=== PATIENT | female | born 1970 | race Hispanic/Latino ===

== ENCOUNTER 2017-09-18 10:32 | Emergency (ER) | payer SELFPAY ==
[2017-09-18 13:19] LABS: Absolute Lymphocytes (CBC) 2.6 K/uL (0.7-4.9); Absolute Monocytes 0.5 K/uL (0.1-1.3); Basophils % 1.1 % (0-1.3); Eosinophils % 1.3 % (0-4.4); Hematocrit 28.6 % (36.0-45.0); Lymphocytes % 27.9 % (15.3-44.8); MCH 18.1 pg (27.0-35.0); MCV 61.9 fL (80-100); MPV 8.8 fL (7.6-11.3); RBC Red Blood Cell Count 4.62 M/uL (3.86-4.86)
[2017-09-18 13:25] LABS: Bicarbonate 23 mEq/L (21-31); Glucose Level 92 mg/dL (65-120); Lipase 26 U/L (22-51); Potassium 3.3 mEq/L (3.6-5.0); Sodium Level 137 mEq/L (135-145)
[2017-09-18 13:31] LABS: ALT/SGPT 15 IU/L (10-60); AST/SGOT 23 IU/L (10-42); Albumin 4.3 g/dL (3.2-5.5); Alkaline Phosphatase 69 IU/L (42-121); Amylase Level 67 U/L (28-100); BUN Blood Urea Nitrogen 10 mg/dL (6-20); Bilirubin Direct 0.2 mg/dL (0-0.2); Bilirubin Total 1.1 mg/dL (0.3-1.2); Protein, Total 8.2 g/dL (6.0-8.3)
[2017-09-18 13:38] LABS: Urine Blood 3+ (NEG); Urine Glucose NEGATIVE (NEG); Urine Protein NEGATIVE (NEG); Urine pH 5.5 (5.0-7.0)
[2017-09-18] MEDS ORDERED: NA CHLORIDE 0.9% 1,000 ML ONE (14:09)
[2017-09-18 14:11] LABS: Urine Bacteria <20 /HPF (<20); Urine Culture Reflex Order NOT NEEDED; Urine RBC 20-50 /HPF (NONE SEEN)
[2017-09-18] MEDS ORDERED: POTASSIUM 25 MEQ EFFERV TAB ONE (14:11)
--- NOTE | 2017-09-18 14:32 | RAD REPORT ---
EXAM DESCRIPTION: CT - Abdomen Pelvis W Contrast - 09/18/2017 2:14 pm CLINICAL HISTORY: Abdominal pain. Rectal bleeding since yesterday COMPARISON: June 2016 TECHNIQUE: Computed axial tomography of the abdomen and pelvis was obtained. 100 cc Isovue-300 is ad ministered intravenously. Oral contrast was given. All CT scans are performed using dose optimization technique as appropriate and may include automated exposure control or mA/KV adjustment according to patient size. FINDINGS: The liver, spleen, pancreas, adrenals and kidneys appear unremarkable. There is no evidence of diverticulitis The gallbladder has been removed. An umbilical hernia contains fat. The neck measures 37 millimeters IMPRESSION: No acute abnormality is displayed
[2017-09-18] MEDS ORDERED: ACETAMINOPHEN 325 MG TABLET ONE (14:37)
--- NOTE | 2017-09-18 14:54 | EDPHYS ---
Physician Documentation [facility] Name: Maryjane Meza Age: 47 yrs Sex: Female : 1970 Arrival Date: 09/18/2017 Time: 10:34 Bed 8 Private MD: ED Physician Harjinder Osorio HPI: 09/18 13:57 This 47 yrs old Female presents to ER via Ambulatory with complaints of kb Vaginal Bleeding. 13:57 The patient presents with vaginal bleeding that is moderate. Onset: The kb symptoms/episode began/occurred 3 week(s) ago. Modifying factors: The symptoms are alleviated by nothing, the symptoms are aggravated by nothing. Associated signs and symptoms: Pertinent positives: hematuria, vaginal bleeding. Severity of symptoms: At their worst the symptoms were moderate, in the emergency department the symptoms are unchanged. The patient's method of control includes Depo. The patient has not experienced similar symptoms in the past. The patient has been recently seen by a physician: an ski patroller specialist, 1 month(s) ago, with similar presenting complaints. Pt states she has been having vaginal bleeding for 3 weeks. States she was seen at the [facility] clinic for this sometime last month and given a depo shot, but it hasn't stopped. States the bleeding stopped for one day and started again. She was told she had fibroids that were causing the bleeding. Has not been back for follow up. 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 - Social history:: Smoking status: Patient/guardian denies using tobacco. ROS: 14:04 Constitutional: Negative for fever, chills, and weight loss, Cardiovascular: Negative kb for chest pain, palpitations, and edema, Respiratory: Negative for shortness of breath, cough, wheezing, and pleuritic chest pain, Abdomen/GI: Negative for abdominal pain, nausea, vomiting, diarrhea, and constipation, MS/Extremity: Negative for injury and deformity, Skin: Negative for injury, rash, and discoloration, Neuro: Negative for headache, weakness, numbness, tingling, and seizure. 14:04 : Positive for hematuria, vaginal bleeding. Exam: 14:04 Constitutional: This is a well developed, well nourished patient who is awake, alert, kb and in no acute distress. Head/Face: Normocephalic, atraumatic. Chest/axilla: Normal chest wall appearance and motion. Nontender with no deformity. No lesions are appreciated. Cardiovascular: Regular rate and rhythm with a normal S1 and S2. No gallops, murmurs, or rubs. Normal PMI, no JVD. No pulse deficits. Respiratory: Lungs have equal breath sounds bilaterally, clear to auscultation and percussion. No rales, rhonchi or wheezes noted. No increased work of breathing, no retractions or nasal flaring. Abdomen/GI: Soft, non-tender, with normal bowel sounds. No distension or tympany. No guarding or rebound. No evidence of tenderness throughout. Back: No spinal tenderness. No costovertebral tenderness. Full range of motion. Skin: Warm, dry with normal turgor. Normal color with no rashes, no lesions, and no evidence of cellulitis. MS/ Extremity: Pulses equal, no cyanosis. Neurovascular intact. Full, normal range of motion. Neuro: Awake and alert, GCS 15, oriented to person, place, time, and situation. Cranial nerves II-XII grossly intact. Motor strength 5/5 in all extremities. Sensory grossly intact. Cerebellar exam normal. Normal gait. Vital Signs: 10:58 BP 149 / 81; Pulse 71; Resp 18 S; Temp 98.1(TE); Pulse Ox 100% on R/A; Weight 111.13 kg aa5 (R); Height 5 ft. 7 in. (170.18 cm) (R); Pain 7/10; 12:48 BP 142 / 86 Supine; Pulse 62 LA; ph 12:48 BP 154 / 78 Sitting; Pulse 73 LA; ph 12:48 BP 149 / 80 Standing; Pulse 80 LA; ph 15:21 BP 150 / 77; Pulse 75; Resp 17; Pulse Ox 100% on R/A; aj 10:58 Body Mass Index 38.37 (111.13 kg, 170.18 cm) aa5 MDM: 12:20 Patient medically screened. kb 14:03 Data reviewed: vital signs, nurses notes. Data interpreted: Pulse oximetry: on room air kb is 100 %. Interpretation: normal. 14:36 Counseling: I had a detailed discussion with the patient and/or guardian regarding: the kb historical points, exam findings, and any diagnostic results supporting the discharge/admit diagnosis, lab results, radiology results, the need for outpatient follow up, an OB/Gyne specialist, to return to the emergency department if symptoms worsen or persist or if there are any questions or concerns that arise at home. 09/18 12:22 Order name: Amylase, Serum; Complete Time: 13:35 kb 09/18 12:22 Order name: Basic Metabolic Panel; Complete Time: 13:35 kb 09/18 12:22 Order name: CBC with Diff; Complete Time: 13:27 kb 09/18 12:22 Order name: Hepatic Function; Complete Time: 13:35 kb 09/18 12:22 Order name: Lipase; Complete Time: 13:35 kb 09/18 13:10 Order name: Urine Dipstick--Ancillary (enter results); Complete Time: 13:38 bd 09/18 12:22 Order name: Urine Test (obtain specimen); Complete Time: 14:01 kb 09/18 13:22 Order name: Urine Microscopic Only; Complete Time: 14:12 kb 09/18 13:28 Order name: CT Abd/Pelvis - W/Contrast; Complete Time: 14:36 kb 09/18 14:04 Order name: Urine --Ancillary (enter results); Complete Time: 14:07 ss 09/18 12:22 Order name: IV Saline Lock; Complete Time: 14:01 kb 09/18 12:22 Order name: Labs collected and sent; Complete Time: 14:01 kb 09/18 12:22 Order name: Urine Dipstick-Ancillary (obtain specimen); Complete Time: 14:01 kb 09/18 12:22 Order name: Orthostatics; Complete Time: 14:01 kb 09/18 12:22 Order name: Straight Cath - Urine; Complete Time: 14:01 kb Administered Medications: 14:09 Not Given (Duplicate Order): Potassium Chloride 20 mEq PO once kb 14:37 Drug: Potassium Effervescent Tablet 25 mEq Route: PO; aj 15:24 Follow up: Response: No adverse reaction aj 14:38 Drug: NS 0.9% 1000 ml Route: IV; Rate: 1000 ml; Site: right antecubital; aj 15:23 Follow up: Response: No adverse reaction; IV Status: Completed infusion; IV Intake: aj 1000ml 14:38 Drug: Tylenol 650 mg Route: PO; aj 15:24 Follow up: Response: No adverse reaction aj Disposition: 18:09 Co-signature as Attending Physician, Harjinder Osorio MD. rn Disposition: 09/18/17 14:53 Discharged to Home. Impression: Abnormal uterine and vaginal bleeding, unspecified. - Condition is Stable. - Discharge Instructions: Abnormal Uterine Bleeding, [id number]. - Medication Reconciliation Form, Thank You Letter, Antibiotic Education, Prescription Opioid Use form. - Follow up: Emergency Department; When: As needed; Reason: Worsening of condition. Follow up: Private Physician; When: 2 - 3 days; Reason: Recheck today's complaints, Continuance of care, Re-evaluation by your physician. Signatures: Dispatcher [employer] EDUT Clari Chaudhry, RILEY-C PHYSICIAN OBSTETRICIAN-Calista Carbajal RN Harjinder Martinez MD MD rn Calderon, Audri, RN RN aa5 Corrections: (The following items were deleted from the chart) 15:24 14:53 09/18/2017 14:53 Discharged to Home. Impression: Abnormal uterine and vaginal aj bleeding, unspecified. Condition is Stable. Forms are Medication Reconciliation Form, Thank You Letter, Antibiotic Education, Prescription Opioid Use. Follow up: Emergency Department; When: As needed; Reason: Worsening of condition. Follow up: Private Physician; When: 2 - 3 days; Reason: Recheck today's complaints, Continuance of care, Re-evaluation by your physician. kb
--- NOTE | 2017-09-18 14:54 | ER ---
Nurse's Notes [facility] Name: Maryjane Meza Age: 47 yrs Sex: Female : 1970 Arrival Date: 09/18/2017 Time: 10:34 Bed 8 Private MD: Diagnosis: Abnormal uterine and vaginal bleeding, unspecified Presentation: 09/18 10:57 Presenting complaint: Patient states: rectal bleeding since yesterday. Pt also reports aa5 dizziness and back pain. Pt states "I also had my period for 3 weeks straight". Transition of care: patient was not received from another setting of care. Onset of symptoms was September 2017. Initial Sepsis Screen: Does the patient meet any 2 criteria? No. Patient's initial sepsis screen is negative. Does the patient have a suspected source of infection? No. Patient's initial sepsis screen is negative. Care prior to arrival: None. 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 - Social history:: Smoking status: Patient/guardian denies using tobacco. Screenin:21 Abuse screen: Denies threats or abuse. Denies injuries from another. Nutritional aj screening: No deficits noted. Tuberculosis screening: No symptoms or risk factors identified. Fall Risk None identified. Assessment: 13:18 General: Appears in no apparent distress. comfortable, obese, well groomed, Behavior is ph calm, cooperative, appropriate for age, Denies fever, feeling ill. Pain: Complains of pain in low back area. Neuro: Level of Consciousness is awake, alert, obeys commands, Oriented to person, place, time, situation. Cardiovascular: Reports fatigue, lightheadedness, shortness of breath, Denies nausea, syncope, vomiting, Capillary refill < 3 seconds Patient's skin is warm and dry. Respiratory: Airway is patent Respiratory effort is even, unlabored. GI: Reports rectal bleeding, Patient currently denies abdominal pain, diarrhea, nausea, vomiting. : Urine is clear, Genitalia appear normal Reports burning with urination, pain in lower back vaginal bleeding that is light flow, x 3 weeks. Derm: Skin is intact, is healthy with good turgor, Skin is pink, warm \\T\\ dry. Musculoskeletal: Circulation, motion, and sensation intact. Range of motion: intact in all extremities. 14:50 General: Appears in no apparent distress. comfortable, Behavior is calm, cooperative, aj appropriate for age. Pain: Complains of pain in low back area. Neuro: Level of Consciousness is awake, alert, obeys commands, Oriented to person, place, time, situation. Respiratory: Airway is patent Trachea midline Respiratory effort is even, unlabored, Respiratory pattern is regular, symmetrical. : Reports vaginal bleeding that is. Vital Signs: 10:58 BP 149 / 81; Pulse 71; Resp 18 S; Temp 98.1(TE); Pulse Ox 100% on R/A; Weight 111.13 kg aa5 (R); Height 5 ft. 7 in. (170.18 cm) (R); Pain 7/10; 12:48 BP 142 / 86 Supine; Pulse 62 LA; ph 12:48 BP 154 / 78 Sitting; Pulse 73 LA; ph 12:48 BP 149 / 80 Standing; Pulse 80 LA; ph 15:21 BP 150 / 77; Pulse 75; Resp 17; Pulse Ox 100% on R/A; aj 10:58 Body Mass Index 38.37 (111.13 kg, 170.18 cm) aa5 ED Course: 10:34 Patient arrived in ED. sb2 10:58 Triage completed. aa5 10:58 Arm band placed on. aa5 12:14 [facility]C [facility] kb 12:14 Harjinder Osorio MD is Attending Physician. kb 12:38 Erica Yap, OSMANI is Primary Nurse. ph 13:38 Radiology exam delayed due to IV insertion attempt and/or patient not having vr appropriate IV at this time. 14:00 Inserted saline lock: 22 gauge in right antecubital area, using aseptic technique. aj ,using aseptic technique. IV inserted by hot wire glass tube cutter Vivek. 14:11 CT completed. Patient tolerated procedure well. Patient moved to CT via wheelchair. cw1 Patient moved back from CT. 14:15 CT Abd/Pelvis - W/Contrast In Process Unspecified. EDMS 14:46 Primary Nurse role handed off by Erica Yap, RN aj 14:46 Calista Watts, RN is Primary Nurse. aj 15:21 Patient has correct armband on for positive identification. aj 15:21 No provider procedures requiring assistance completed. IV discontinued, intact, aj bleeding controlled, No redness/swelling at site. Pressure dressing applied. Administered Medications: 14:09 Not Given (Duplicate Order): Potassium Chloride 20 mEq PO once kb 14:37 Drug: Potassium Effervescent Tablet 25 mEq Route: PO; aj 15:24 Follow up: Response: No adverse reaction aj 14:38 Drug: NS 0.9% 1000 ml Route: IV; Rate: 1000 ml; Site: right antecubital; aj 15:23 Follow up: Response: No adverse reaction; IV Status: Completed infusion; IV Intake: aj 1000ml 14:38 Drug: Tylenol 650 mg Route: PO; aj 15:24 Follow up: Response: No adverse reaction aj Intake: 15:23 IV: 1000ml; Total: 1000ml. aj Outcome: 14:53 Discharge ordered by MD. kb 15:21 Discharged to home ambulatory. aj 15:21 Condition: good 15:21 Discharge instructions given to patient, Instructed on discharge instructions, follow up and referral plans. Demonstrated understanding of instructions, follow-up care. 15:24 Patient left the ED. aj Signatures: Dispatcher [employer] EDMS Clari Chaudhry, THINNER SPRAYER-C THINNER SPRAYER-Ckb Calista Watts, RN RN Taniya Lorenzana, RN RN aaWendie Llanos Crystal cw1 Erica Yap RN OSMANI Guerrero, Rosaura sb2 Corrections: (The following items were deleted from the chart) 11:00 10:57 Presenting complaint: Patient states: rectal bleeding since yesterday. Pt also aa5 reports dizziness and back pain. aa5 11:00 10:58 BP 149 / 81; Pulse 71bpm; Resp 18bpm; Spontaneous; Pulse Ox 100% RA; Temp 98.1F aa5 Temporal; aa5
[2017-09-18 15:29] VITALS: TEMP 98.1; O2SAT 100
[2017-09-18 15:31] VITALS: BP 150/77
== END 2017-09-18 15:24 | disposition home or self-care (01) ==
LOC: ER 10:32
DX: N93.9 Abnormal uterine and vaginal bleeding, unspecified (principal); I10 Essential (primary) hypertension
CPT/HCPCS: 36415; 74177; 80048; 80076; 81003; 81015; 81025; 82150; 83690; 85025; 96360; 99284; J7030; Q9967

== ENCOUNTER 2017-11-04 09:21 | Emergency (ER) | payer SELFPAY ==
[2017-11-04 10:23] LABS: Absolute Lymphocytes (CBC) 1.6 K/uL (0.7-4.9); Absolute Monocytes 0.4 K/uL (0.1-1.3); Absolute Neutrophil 5.6 K/uL (1.8-8.0); Basophils % 0.4 % (0-1.3); Eosinophils % 1.2 % (0-4.4); Hematocrit 26.6 % (36.0-45.0); MCH 18.9 pg (27.0-35.0); MCV 61.6 fL (80-100); MPV 8.8 fL (7.6-11.3); Monocytes % 5.7 % (3.3-12.3); RBC Red Blood Cell Count 4.32 M/uL (3.86-4.86)
--- NOTE | 2017-11-04 10:25 | RAD REPORT ---
EXAM DESCRIPTION: Geovanni Single View11/04/2017 10:03 am CLINICAL HISTORY: Chest pain COMPARISON: February 2017 FINDINGS: The lungs appear clear of acute infiltrate. The heart is normal size IMPRESSION: No acute abnormalities displayed
[2017-11-04 10:28] LABS: Protime INR 1.19
[2017-11-04 10:49] LABS: ALT/SGPT 16 U/L (12-78); AST/SGOT 14 U/L (15-37); Albumin 3.6 g/dL (3.4-5.0); Alkaline Phosphatase 79 U/L (45-117); BUN Blood Urea Nitrogen 8 mg/dL (7-18); Bicarbonate 25 mmol/L (21-32); Bilirubin Direct 0.2 mg/dL (0-0.2); Bilirubin Total 0.9 mg/dL (0.2-1.0); CKMB Creatine Kinase MB < 1.0 ng/mL (0.3-3.6); Creatine Phosphokinase 95 U/L (26-192); Glucose Level 102 mg/dL (74-106); Magnesium 2.2 mg/dL (1.8-2.4); Potassium 3.5 mmol/L (3.5-5.1); Sodium Level 138 mmol/L (136-145)
--- NOTE | 2017-11-04 10:50 | EKG ---
Test Date: 2017-11-04 Test Time: 10:00:35 Shuttle Hand: IGNACIA MEASUREMENT RESULTS: Intervals: Rate: 76 VA: 136 QRSD: 84 QT: 390 QTc: 438 [place]: P: 39 VA: 136 QRS: 30 T: 27 INTERPRETIVE STATEMENTS: Normal sinus rhythm Normal ECG Compared to ECG 02/24/2017 18:57:24 No significant changes Electronically Signed On 11-04-17 10:49:15 CDT by Anton Molina
[2017-11-04 11:26] LABS: Urine Blood TRACE (NEG); Urine Glucose NEGATIVE (NEG); Urine Protein 1+ (NEG); Urine Specific Gravity 1.015 (1.005-1.030)
[2017-11-04 11:26] LABS: Urine Specific Gravity 1.015 (1.005-1.030)
[2017-11-04 11:32] LABS: Anisocytosis 2+; Blood Morphology Comment NOTED (NOT SEEN); Hypochromasia 2+; Ovalocytes 1+; Platelet Estimate ADEQ
--- NOTE | 2017-11-04 11:55 | ER ---
Nurse's Notes [facility] Name: Maryjane Meza Age: 47 yrs Sex: Female : 1970 Arrival Date: 11/04/2017 Time: 09:23 Bed 19 Private MD: None, None Diagnosis: Bronchitis, not specified as acute or chronic;Urinary tract infection, site not specified Presentation: 11/04 09:25 Presenting complaint: Patient states: painful cough productive green sputum sometimes, sg back pain for about three weeks now, fever off and on. Transition of care: patient was not received from another setting of care. Onset of symptoms was October 08, 2017. Risk Assessment: Do you want to hurt yourself or someone else? Patient reports no desire to harm self or others. Initial Sepsis Screen: Does the patient meet any 2 criteria?. Care prior to arrival: None. 09:25 Method Of Arrival: Ambulatory 09:25 Acuity: HECTOR 3 sg 09:30 Initial Sepsis Screen: Does the patient meet any 2 criteria? HR > 90 bpm. No. Patient's sg initial sepsis screen is negative. Does the patient have a suspected source of infection? No. Patient's initial sepsis screen is negative. 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 - Social history:: Smoking status: Patient/guardian denies using tobacco. - Ebola Screening: : Patient negative for fever greater than or equal to 101.5 degrees Fahrenheit, and additional compatible Ebola Virus Disease symptoms Patient denies exposure to infectious person Patient denies travel to an Ebola-affected area in the 21 days before illness onset No symptoms or risks identified at this time. Screenin:15 Abuse screen: Denies threats or abuse. Denies injuries from another. Nutritional jl7 screening: No deficits noted. Tuberculosis screening: No symptoms or risk factors identified. Fall Risk IV access (20 points). Total Mane Fall Scale indicates No Risk (0-24 pts). Assessment: 10:15 General: Appears in no apparent distress. uncomfortable, Behavior is calm, cooperative, jl7 appropriate for age. Pain: Denies pain. Neuro: Level of Consciousness is awake, alert, obeys commands, Oriented to person, place, time, situation. Cardiovascular: Heart tones S1 S2 present Patient's skin is warm and dry. Respiratory: Airway is patent Respiratory effort is even, unlabored, Respiratory pattern is regular, symmetrical, Breath sounds are clear bilaterally. GI: Reports nausea, Patient currently denies diarrhea, vomiting. : No signs and/or symptoms were reported regarding the genitourinary system. EENT: No signs and/or symptoms were reported regarding the EENT system. Derm: Skin is pink, warm \T\ dry. Vital Signs: 09:26 BP 143 / 81; Pulse 103; Resp 19 S; Temp 98.3; Pulse Ox 99% on R/A; Weight 117.93 kg; sg Height 5 ft. 7 in. (170.18 cm); Pain 7/10; 10:15 BP 167 / 77; Pulse 73; Resp 16; Pulse Ox 96% ; jl7 12:00 BP 121 / 87; Pulse 70; Resp 16; Pulse Ox 99% ; jl7 09:26 Body Mass Index 40.72 (117.93 kg, 170.18 cm) ED Course: 09:23 Patient arrived in ED. sb2 09:24 None, None is Private Physician. sb2 09:26 Triage completed. sg 09:30 Arm band placed on. sg 09:34 Rob Peña PA is PHCP. [facility] 09:34 Harjinder Osorio MD is Attending Physician. jmm 09:48 Kerwin Blanco RN is Primary Nurse. jl7 10:03 X-ray completed. Portable x-ray completed in exam room. Patient tolerated procedure jb2 well. 10:03 XRAY Chest (1 view) In Process Unspecified. EDMS 10:15 Patient has correct armband on for positive identification. Placed in gown. Bed in low jl7 position. Call light in reach. Side rails up X 1. english language arts teacher on. Pulse ox on. NIBP on. Warm blanket given. 10:17 EKG done, by fish roe technician. reviewed by Rob ANDERSON. at1 10:20 Initial lab(s) drawn, by ga, sent to lab. Urine collected: clean catch specimen, clear. jl7 Inserted saline lock: 20 gauge in left forearm, using aseptic technique. Blood collected. 12:08 No provider procedures requiring assistance completed. IV discontinued, intact, jl7 bleeding controlled, No redness/swelling at site. Pressure dressing applied. Administered Medications: No medications were administered Outcome: 11:54 Discharge ordered by MD. doss 12:08 Discharged to home ambulatory. jl7 12:08 Condition: stable 12:08 Discharge instructions given to patient, Instructed on discharge instructions, follow up and referral plans. medication usage, Demonstrated understanding of instructions, follow-up care, medications, Prescriptions given X 3. 12:09 Patient left the ED. jl7 Signatures: Dispatcher [employer] EDMS Jb Allison, RN RN Rob Ovalle PA PA Anil Collier jb2 Calista bourne, vendor relationship manager EKG Tat1 Kerwin Blanco RN RN jl7 Rosaura Guerrero sb2
--- NOTE | 2017-11-04 11:55 | EDPHYS ---
Physician Documentation [facility] Name: Maryjane Meza Age: 47 yrs Sex: Female : 1970 Arrival Date: 11/04/2017 Time: 09:23 Bed 19 Private MD: None, None ED Physician Harjinder Osorio HPI: 11/04 09:54 This 47 yrs old Female presents to ER via Ambulatory with complaints of Flu jmm Symptoms. 09:54 The patient or guardian reports cough, that is intermittent. Onset: The jmm symptoms/episode began/occurred gradually. Associated signs and symptoms: Pertinent positives: chest pain, fever. 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 - Social history:: Smoking status: Patient/guardian denies using tobacco. - Ebola Screening: : Patient negative for fever greater than or equal to 101.5 degrees Fahrenheit, and additional compatible Ebola Virus Disease symptoms Patient denies exposure to infectious person Patient denies travel to an Ebola-affected area in the 21 days before illness onset No symptoms or risks identified at this time. ROS: 09:55 Eyes: Negative for injury, pain, redness, and discharge. jmm 09:55 Abdomen/GI: Negative for abdominal pain, nausea, vomiting, diarrhea, and constipation, Back: Negative for injury and pain, : Negative for injury, bleeding, discharge, and swelling, MS/Extremity: Negative for injury and deformity, Skin: Negative for injury, rash, and discoloration, Neuro: Negative for headache, weakness, numbness, tingling, and seizure. 09:55 Constitutional: Positive for body aches. 09:55 Cardiovascular: Positive for chest pain. 09:55 Respiratory: Positive for cough. 09:55 All other systems are negative. Exam: 09:55 Head/Face: atraumatic. Chest/axilla: Normal chest wall appearance and motion. jmm Nontender with no deformity. No lesions are appreciated. Cardiovascular: Regular rate and rhythm. No gallops, murmurs, or rubs. Full/Equal distal pulses. Respiratory: Lungs have equal breath sounds bilaterally, clear to auscultation. No rales, rhonchi or wheezes noted. No increased work of breathing, no retractions or nasal flaring. 09:55 Constitutional: The patient appears in no acute distress, alert, awake. 09:55 Back: ROM is normal. 09:55 Skin: Appearance: Color: normal in color. 09:55 Neuro: Orientation: is normal, Mentation: is normal, Memory: is normal. 09:55 Psych: Behavior/mood is pleasant, cooperative. Vital Signs: 09:26 BP 143 / 81; Pulse 103; Resp 19 S; Temp 98.3; Pulse Ox 99% on R/A; Weight 117.93 kg; sg Height 5 ft. 7 in. (170.18 cm); Pain 7/10; 10:15 BP 167 / 77; Pulse 73; Resp 16; Pulse Ox 96% ; jl7 12:00 BP 121 / 87; Pulse 70; Resp 16; Pulse Ox 99% ; jl7 09:26 Body Mass Index 40.72 (117.93 kg, 170.18 cm) MDM: 09:47 Patient medically screened. [facility] 11:53 Data reviewed: vital signs, nurses notes, lab test result(s), EKG, radiologic studies, [facility] plain films. Counseling: I had a detailed discussion with the patient and/or guardian regarding: the historical points, exam findings, and any diagnostic results supporting the discharge/admit diagnosis, lab results, radiology results, to return to the emergency department if symptoms worsen or persist or if there are any questions or concerns that arise at home. ED course: Care discussed with Dr. Osorio. 11/04 09:47 Order name: Basic Metabolic Panel [facility] 11/04 09:47 Order name: CBC with Diff [facility] 11/04 09:47 Order name: Ckmb; Complete Time: 10:54 [facility] 11/04 09:47 Order name: CPK; Complete Time: 10:54 [facility] 11/04 09:47 Order name: LFT's; Complete Time: 10:54 [facility] 11/04 09:47 Order name: Magnesium; Complete Time: 10:54 [facility] 11/04 09:47 Order name: PT-INR; Complete Time: 10:54 [facility] 11/04 09:47 Order name: Ptt, Activated; Complete Time: 10:54 [facility] 11/04 09:47 Order name: Troponin (emerg Dept Use Only); Complete Time: 10:54 [facility] 11/04 09:47 Order name: D-Dimer; Complete Time: 10:54 [facility] 11/04 09:48 Order name: Basic Metabolic Panel; Complete Time: 10:54 EDMS 11/04 09:48 Order name: CBC with Automated Diff; Complete Time: 11:53 EDMS 11/04 11:01 Order name: Urine Dipstick--Ancillary (enter results); Complete Time: 11:28 ag 11/04 11:02 Order name: Urine --Ancillary (enter results); Complete Time: 11:28 ag 11/04 09:47 Order name: Urine Test (obtain specimen); Complete Time: 10:23 [facility] 11/04 09:47 Order name: XRAY Chest (1 view); Complete Time: 10:28 [facility] 11/04 09:47 Order name: EKG; Complete Time: 09:48 [facility] 11/04 09:47 Order name: Cardiac monitoring; Complete Time: 10:17 [facility] 11/04 09:47 Order name: EKG - Nurse/Tech; Complete Time: 10:17 [facility] 11/04 09:47 Order name: IV Saline Lock; Complete Time: 10:17 [facility] 11/04 09:47 Order name: Labs collected and sent; Complete Time: 10:17 [facility] 11/04 09:47 Order name: O2 Per Protocol; Complete Time: 10:17 [facility] 11/04 09:47 Order name: O2 Sat Monitoring; Complete Time: 10:17 [facility] 11/04 09:47 Order name: Urine Dipstick-Ancillary (obtain specimen); Complete Time: 10:23 [facility] 11/04 11:32 Order name: Manual Differential; Complete Time: 11:53 EDMS Administered Medications: No medications were administered Disposition: 12:13 Co-signature as Attending Physician, Harjinder Osorio MD. rn Disposition: 11/04/17 11:54 Discharged to Home. Impression: Bronchitis, not specified as acute or chronic, Urinary tract infection, site not specified. - Condition is Stable. - Discharge Instructions: Acute Bronchitis, Urinary Tract Infection. - Prescriptions for cefdinir 300 mg Oral capsule - take 1 capsule by ORAL route every 12 hours for 10 days; 20 capsule. Prednisone 20 mg Oral Tablet - take 3 tablet by ORAL route once daily for 5 days; 15 tablet. Albuterol Sulfate 90 mcg/actuation - inhale 1-2 puff by INHALATION route every 4-6 hours; 1 Inhaler. - Medication Reconciliation Form, Thank You Letter, Antibiotic Education, Prescription Opioid Use form. - Follow up: Private Physician; When: 2 - 3 days; Reason: Continuance of care. Signatures: Dispatcher [employer] EDJb Grimaldo RN Rob Ojeda PA PA [facility] Harjinder Osorio MD MD rn Leal, Jahala, RN RN jl7 Corrections: (The following items were deleted from the chart) 11:54 11:54 11/04/2017 11:54 Discharged to Home. Impression: Bronchitis, not specified as jmm acute or chronic. Condition is Stable. Forms are Medication Reconciliation Form, Thank You Letter, Antibiotic Education, Prescription Opioid Use. Follow up: Private Physician; When: 2 - 3 days; Reason: Continuance of care. [facility] 12:09 11:54 11/04/2017 11:54 Discharged to Home. Impression: Bronchitis, not specified as jl7 acute or chronic; Urinary tract infection, site not specified. Condition is Stable. Forms are Medication Reconciliation Form, Thank You Letter, Antibiotic Education, Prescription Opioid Use. Follow up: Private Physician; When: 2 - 3 days; Reason: Continuance of care. [facility]
[2017-11-04 12:12] VITALS: TEMP 98.3
[2017-11-04 12:13] VITALS: BP 167/77; O2SAT 96
== END 2017-11-04 12:09 | disposition home or self-care (01) ==
LOC: ER 09:21
DX: J40 Bronchitis, not specified as acute or chronic (principal); N39.0 Urinary tract infection, site not specified; D64.9 Anemia, unspecified; I10 Essential (primary) hypertension; E03.9 Hypothyroidism, unspecified
CPT/HCPCS: 36415; 71045; 80048; 80076; 81003; 81025; 82550; 82553; 83735; 84484; 85025; 85379; 85610; 85730; 93005; 99284

== ENCOUNTER 2018-03-24 19:11 | Inpatient (IN) | payer SELFPAY ==
[2018-03-24 21:15] LABS: Absolute Lymphocytes (CBC) 1.7 K/uL (0.7-4.9); Absolute Monocytes 0.5 K/uL (0.1-1.3); Absolute Neutrophil 5.4 K/uL (1.8-8.0); Basophils % 0.2 % (0-1.3); Eosinophils % 1.2 % (0-4.4); Lymphocytes % 21.9 % (15.3-44.8); MCV 61.9 fL (80-100); MPV 8.7 fL (7.6-11.3); Monocytes % 6.4 % (3.3-12.3); Protime INR 1.1; RBC Red Blood Cell Count 3.71 M/uL (3.86-4.86)
[2018-03-24 21:21] LABS: Urine Blood 3+ (NEG); Urine Glucose NEGATIVE (NEG); Urine Protein 2+ (NEG); Urine Specific Gravity >1.030 (1.005-1.030)
[2018-03-24 21:21] LABS: Urine Bacteria <20 /HPF (<20); Urine Culture Reflex Order NOT NEEDED; Urine Mucus 1+ /HPF (NONE SEEN); Urine RBC TNTC /HPF (NONE SEEN)
[2018-03-24 21:26] LABS: ALT/SGPT 18 U/L (12-78); AST/SGOT 11 U/L (15-37); Albumin 3.5 g/dL (3.4-5.0); Alkaline Phosphatase 94 U/L (45-117); BUN Blood Urea Nitrogen 8 mg/dL (7-18); Bicarbonate 25 mmol/L (21-32); Bilirubin Direct 0.2 mg/dL (0-0.2); Bilirubin Total 0.6 mg/dL (0.2-1.0); Glucose Level 118 mg/dL (74-106); NT PRO-BNP 73 pg/mL (<125); Potassium 3.2 mmol/L (3.5-5.1); Protein, Total 7.3 g/dL (6.4-8.2); Sodium Level 140 mmol/L (136-145); Troponin (Emerg Dept Use Only) < 0.02 ng/mL (0.0-0.045)
--- NOTE | 2018-03-24 21:42 | RAD REPORT ---
EXAM DESCRIPTION: Geovanni Gee (2 Views)03/24/2018 9:10 pm CLINICAL HISTORY: Chest pain COMPARISON: October 2017 FINDINGS: The lungs appear clear of acute infiltrate. The heart is normal size IMPRESSION: No acute abnormalities displayed
[2018-03-24 22:20] LABS: Blood Morphology Comment NOTED (NOT SEEN); Platelet Estimate ADEQ; Urine White Blood Cell Casts OK
[2018-03-24 22:26] LABS: Anisocytosis 1+; Hypochromasia 1+; Ovalocytes 2+
[2018-03-24] MEDS ORDERED: POTASSIUM 25 MEQ EFFERV TAB ONE (22:43)
[2018-03-24] MEDS ORDERED: ONDANSETRON 4 MG/2 ML VIAL IV PRN (22:53)
[2018-03-24] MEDS ORDERED: ACETAMINOPHEN 500 MG TAB PO PRN (22:53)
[2018-03-24] MEDS ORDERED: MORPHINE 2 MG/ML SYR IV PRN (22:53)
[2018-03-24] MEDS ORDERED: NA CHLORIDE 0.9% 250 ML IV SCH (23:00)
[2018-03-24] MEDS ORDERED: ACETAMINOPHEN 500 MG TAB ONE (23:36)
[2018-03-24 23:50] LABS: RBC Red Blood Cell Count 3.59 M/uL (3.86-4.86)
--- NOTE | 2018-03-24 23:53 | ER ---
Nurse's Notes [facility] Name: Maryjane Meza Age: 47 yrs Sex: Female : 1970 Arrival Date: 03/24/2018 Time: 19:18 Bed 26 Private MD: Diagnosis: Anemia secondary to mestrual blood loss;Headache Presentation: 03/24 19:43 Presenting complaint: Patient states: Reports headache for the past 6 days. States the aj1 nurse at the liver clinic said that her hemoglobin was low on her labs last Wednesday, but she doesn't know what the result was. Reports SOB. Reports that she has had vaginal bleeding since March 14 that she describes as heavy. Transition of care: patient was not received from another setting of care. Onset of symptoms was March 24, 2018. Risk Assessment: Do you want to hurt yourself or someone else? Patient reports no desire to harm self or others. Initial Sepsis Screen: Does the patient meet any 2 criteria? HR > 90 bpm. No. Patient's initial sepsis screen is negative. Does the patient have a suspected source of infection? No. Patient's initial sepsis screen is negative. Care prior to arrival: None. 19:43 Method Of Arrival: Ambulatory [facility] 19:43 Acuity: HECTOR 3 aj1 Triage Assessment: 19:46 Headache History: Denies prior headaches. General: Appears in no apparent distress. aj1 comfortable, Behavior is calm, cooperative, appropriate for age. Pain: Pain currently is 0 out of 10 on a pain scale. Pain: Denies pain. Neuro: Level of Consciousness is awake, alert, obeys commands, Reports headache States she only has the headache in the morning. Cardiovascular: Patient's skin is warm and dry. Respiratory: Airway is patent Respiratory effort is even, unlabored, Respiratory pattern is regular, symmetrical. 20:31 Pain: Pain began suddenly, Also complains of no other associated symptoms. 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 - Social history:: Smoking status: Patient/guardian denies using tobacco. - Ebola Screening: : Patient denies travel to an Ebola-affected area in the 21 days before illness onset. - Family history:: not pertinent. - Hospitalizations: : No recent hospitalization is reported. Screenin:30 Abuse screen: Denies threats or abuse. Denies injuries from another. Nutritional rv screening: No deficits noted. Tuberculosis screening: No symptoms or risk factors identified. Fall Risk None identified. Assessment: 20:30 General: Appears in no apparent distress. comfortable, Behavior is calm, cooperative. rv Pain: Complains of pain in head. Neuro: Level of Consciousness is awake, alert, obeys commands, Oriented to person, place, time, situation. Cardiovascular: Capillary refill < 3 seconds. Respiratory: Airway is patent. GI: No signs and/or symptoms were reported involving the gastrointestinal system. : No signs and/or symptoms were reported regarding the genitourinary system. EENT: No signs and/or symptoms were reported regarding the EENT system. Derm: Skin is intact. 22:19 Reassessment: Patient appears in no apparent distress at this time. Patient and/or rv family updated on plan of care and expected duration. Pain level reassessed. Patient is alert, oriented x 3, equal unlabored respirations, skin warm/dry/pink. 23:34 Reassessment: Patient appears in no apparent distress at this time. Patient and/or rv family updated on plan of care and expected duration. Pain level reassessed. Patient is alert, oriented x 3, equal unlabored respirations, skin warm/dry/pink. repeat labs done. Vital Signs: 19:46 BP 158 / 80; Pulse 96; Resp 24; Temp 97.2; Pulse Ox 100% on R/A; Weight 117.93 kg (R); aj1 Height 5 ft. 7 in. (170.18 cm) (R); Pain 0/10; 21:29 BP 138 / 73; Pulse 80; Resp 17; Pulse Ox 100% on R/A; rv 22:19 BP 147 / 71; Pulse 76 MON; Resp 14 S; Pulse Ox 100% on R/A; rv 23:33 BP 135 / 74; Pulse 83; Resp 22 S; Pulse Ox 100% on R/A; rv 03/25 00:26 BP 149 / 100; Pulse 82; Resp 16 S; Pulse Ox 100% ; rv 03/24 19:46 Body Mass Index 40.72 (117.93 kg, 170.18 cm) aj1 ED Course: 03/24 19:18 Patient arrived in ED. al2 19:46 Triage completed. aj1 19:55 Willard Russell MD is Attending Physician. wa 20:31 Arm band placed on right wrist. rv 20:31 Patient has correct armband on for positive identification. Bed in low position. Call rv light in reach. Side rails up X 1. Adult w/ patient. Pulse ox on. NIBP on. 21:00 Initial lab(s) drawn, by me, sent to lab. Urine collected: clean catch specimen. rv Inserted saline lock: 20 gauge in right antecubital area, using aseptic technique. Blood collected. 21:09 Chest Pa And Lat (2 Views) XRAY In Process Unspecified. EDMS 21:15 Urine --Ancillary (enter results) Sent. rv 21:15 Urine Dipstick--Ancillary (enter results) Sent. rv 21:36 Notified ED physician of a critical lab result(s). Hemoglobin 6.7 (Dr. Russell). kr2 23:50 Maribell Johnson MD is Hospitalizing Provider. fl 03/25 00:28 No provider procedures requiring assistance completed. Patient admitted, IV remains in rv place. intact. Administered Medications: 03/24 22:40 Drug: Potassium Effervescent Tablet 50 mEq Route: PO; rv 03/25 00:27 Follow up: Response: No adverse reaction rv 03/24 23:31 Drug: Tylenol 1000 mg Route: PO; rv 03/25 00:27 Follow up: Response: No adverse reaction rv Outcome: 03/24 23:52 Decision to Hospitalize by Provider. fl 03/25 00:28 Admitted to Med/surg accompanied by tech, via wheelchair, room 217+, with chart, Report rv called to RICHARD KEEN Condition: stable Instructed on the need for admit. 00:33 Patient left the ED. rv Signatures: [facility]patcher [facility] Kiera Greene, RN RN aj1 Willard Russell MD MD wa Reaves, Karey, RN RN kr2 Rose Capps Ronaldo, RN RN rv Corrections: (The following items were deleted from the chart) 03/24 19:49 19:43 Presenting complaint: Patient states: Reports headache for the past 6 days. aj1 States the nurse at the liver clinic said that her hemoglobin was low on her labs last Wednesday, but she doesn't know what the result was. ReportsSOB aj1
--- NOTE | 2018-03-24 23:54 | EDPHYS ---
Physician Documentation [facility] Name: Maryjane Meza Age: 47 yrs Sex: Female : 1970 Arrival Date: 03/24/2018 Time: 19:18 Bed 26 Private MD: ED Physician Willard Russell HPI: 03/25 00:03 This 47 yrs old Female presents to ER via Ambulatory with complaints of wa Headache, LOW HYMOGLOBIN. 00:03 The patient complains of pain to the diffuse. The patient describes the headache as wa aching. Onset: The symptoms/episode began/occurred 1 week(s) ago. Associated signs and symptoms: Pertinent positives: dizziness, blurred vision, weakness, SOB with mild exertion, Pertinent negatives: vomiting. Severity of symptoms: At its worst the pain was moderate, in the emergency department the pain is unchanged. Headache History: Denies prior headaches. The symptoms are alleviated by nothing. the symptoms are aggravated by nothing. The patient has not experienced similar symptoms in the past. The patient has been recently seen by a physician: the patient's primary care provider, told to come to ED due to anemia. states heavy menses continuous for 2 months. given a depo shot. bleeding has subsided but still with above described symptoms. 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 - Social history:: Smoking status: Patient/guardian denies using tobacco. - Ebola Screening: : Patient denies travel to an Ebola-affected area in the 21 days before illness onset. - Family history:: not pertinent. - Hospitalizations: : No recent hospitalization is reported. ROS: 03/25 00:07 Constitutional: Negative for fever, chills, and weight loss, ENT: Negative for injury, wa pain, and discharge, Neck: Negative for injury, pain, and swelling, Abdomen/GI: Negative for abdominal pain, nausea, vomiting, diarrhea, and constipation, Back: Negative for injury and pain, : Negative for injury, bleeding, discharge, and swelling, MS/Extremity: Negative for injury and deformity, Skin: Negative for injury, rash, and discoloration, Psych: Negative for depression, anxiety, suicide ideation, homicidal ideation, and hallucinations. Eyes: Positive for blurry vision. Cardiovascular: Negative for chest pain, edema, orthopnea, palpitations. Respiratory: Positive for dyspnea on exertion. Neuro: Positive for dizziness, headache. All other systems are negative. Exam: 00:09 Constitutional: This is a well developed, well nourished patient who is awake, alert, wa and in no acute distress. Head/Face: Normocephalic, atraumatic. ENT: Nares patent. No nasal discharge, no septal abnormalities noted. Tympanic membranes are normal and external auditory canals are clear. Oropharynx with no redness, swelling, or masses, exudates, or evidence of obstruction, uvula midline. Mucous membranes moist. Neck: Trachea midline, no thyromegaly or masses palpated, and no cervical lymphadenopathy. Supple, full range of motion without nuchal rigidity, or vertebral point tenderness. No Meningismus. Cardiovascular: Regular rate and rhythm with a normal S1 and S2. No gallops, murmurs, or rubs. Normal PMI, no JVD. No pulse deficits. Respiratory: Lungs have equal breath sounds bilaterally, clear to auscultation and percussion. No rales, rhonchi or wheezes noted. No increased work of breathing, no retractions or nasal flaring. Abdomen/GI: Soft, non-tender, with normal bowel sounds. No distension or tympany. No guarding or rebound. No evidence of tenderness throughout. Back: No spinal tenderness. No costovertebral tenderness. Full range of motion. MS/ Extremity: Pulses equal, no cyanosis. Neurovascular intact. Full, normal range of motion. Neuro: Awake and alert, GCS 15, oriented to person, place, time, and situation. Cranial nerves II-XII grossly intact. Motor strength 5/5 in all extremities. Sensory grossly intact. Cerebellar exam normal. Normal gait. Psych: Awake, alert, with orientation to person, place and time. Behavior, mood, and affect are within normal limits. 00:09 Eyes: Sclera: noted pallor. 00:09 Skin: Appearance: Color: normal in color. Vital Signs: 03/24 19:46 BP 158 / 80; Pulse 96; Resp 24; Temp 97.2; Pulse Ox 100% on R/A; Weight 117.93 kg (R); aj1 Height 5 ft. 7 in. (170.18 cm) (R); Pain 0/10; 21:29 BP 138 / 73; Pulse 80; Resp 17; Pulse Ox 100% on R/A; rv 22:19 BP 147 / 71; Pulse 76 MON; Resp 14 S; Pulse Ox 100% on R/A; rv 23:33 BP 135 / 74; Pulse 83; Resp 22 S; Pulse Ox 100% on R/A; rv 03/25 00:26 BP 149 / 100; Pulse 82; Resp 16 S; Pulse Ox 100% ; rv 03/24 19:46 Body Mass Index 40.72 (117.93 kg, 170.18 cm) aj1 MDM: 03/24 19:55 Patient medically screened. vt 03/25 00:09 Differential diagnosis: symptomatic anemia? r/o alternate dx. Data reviewed: vital wa signs, nurses notes. Test interpretation: by ED physician or midlevel provider: EKG: HR 83. NSR. no acute abnml. 00:12 Test interpretation: by ED physician or midlevel provider: low H/H. UA noted for blood. vt suspect ESTHETICIAN source. Physician consultation: Maribell Johnson MD. Admission orders: after a detailed discussion of the patient's condition and case, the admit orders are written by in. ED course: admitted for transfusion and further evaluation.. 03/24 20:41 Order name: Basic Metabolic Panel; Complete Time: 22:29 03/24 20:41 Order name: CBC with Diff; Complete Time: 22:30 vt 03/24 20:41 Order name: LFT's; Complete Time: 22:30 vt 03/24 20:41 Order name: NT PRO-BNP; Complete Time: 22:30 vt 03/24 20:41 Order name: PT-INR; Complete Time: 22:30 vt 03/24 20:41 Order name: Troponin (emerg Dept Use Only); Complete Time: 22:30 03/24 20:41 Order name: Urine Microscopic Only; Complete Time: 22:30 vt 03/24 20:41 Order name: Type And Screen vt 03/24 21:11 Order name: Urine Dipstick--Ancillary (enter results) [facility] 03/24 21:11 Order name: Urine --Ancillary (enter results) [facility] 03/24 21:12 Order name: Urine Dipstick-Ancillary; Complete Time: 22:30 EDMN 03/24 21:12 Order name: Urine --Ancillary; Complete Time: 22:30 EDMN 03/24 21:35 Order name: CBC Smear Scan; Complete Time: 22:29 EDMS 03/24 22:59 Order name: Ferritin EDMS 03/24 20:41 Order name: EKG; Complete Time: 20:42 vt 03/24 20:41 Order name: Chest Pa And Lat (2 Views) XRAY; Complete Time: 22:30 vt 03/24 22:58 Order name: CONS Pharmacy Consult EDMN 03/24 22:58 Order name: NPO EDMS 03/24 22:58 Order name: EKG Electrocardiogram EDMS 03/24 22:58 Order name: EKG Electrocardiogram EDMS 03/24 22:58 Order name: EKG Electrocardiogram EDMS 03/24 22:58 Order name: EKG Electrocardiogram EDMS 03/24 22:59 Order name: EKG Electrocardiogram EDMS 03/24 22:59 Order name: EKG Electrocardiogram EDMS 03/24 22:59 Order name: Retic Count EDMS 03/24 22:59 Order name: Transferrin Sat/Iron Binding EDMS 03/24 22:59 Order name: BB Add On EDMS 03/24 20:41 Order name: Cardiac monitoring; Complete Time: 21:15 vt 03/24 20:41 Order name: EKG - Nurse/Tech; Complete Time: 21:15 vt 03/24 20:41 Order name: IV Saline Lock; Complete Time: 21:15 vt 03/24 20:41 Order name: Labs collected and sent; Complete Time: 21:15 vt 03/24 20:41 Order name: O2 Sat Monitoring; Complete Time: 21:15 vt 03/24 20:41 Order name: Urine Dipstick-Ancillary (obtain specimen); Complete Time: 21:15 vt 03/24 20:41 Order name: Urine Test (obtain specimen); Complete Time: 21:15 vt 03/24 22:59 Order name: EKG Electrocardiogram [facility] 03/24 22:59 Order name: EKG Electrocardiogram EDMN 03/24 22:59 Order name: EKG Electrocardiogram EDMN 03/24 22:59 Order name: EKG Electrocardiogram EDMN 03/24 22:59 Order name: EKG Electrocardiogram EDMN Administered Medications: 03/24 22:40 Drug: Potassium Effervescent Tablet 50 mEq Route: PO; rv 03/25 00:27 Follow up: Response: No adverse reaction rv 03/24 23:31 Drug: Tylenol 1000 mg Route: PO; rv 03/25 00:27 Follow up: Response: No adverse reaction rv Disposition: 03/24/18 23:52 Hospitalization ordered by Maribell Johnson for Observation. Preliminary diagnosis are Anemia secondary to mestrual blood loss, Headache. - Bed requested for Telemetry/MedSurg (observation). - Status is Observation. rv - Condition is Stable. - Problem is new. - Symptoms have improved. UTI on Admission? No Signatures: Dispatcher [employer] EDMN Kiera Bledsoe RN RN aj1 Krysta Stokes RN RN mw Appiah, William, MD MD vt Reilly Gonzales RN RN rv Corrections: (The following items were deleted from the chart) 03/24 23:00 22:59 Iron ordered. [facility] 23:53 23:52 Hospitalization Ordered by Maribell Johnson MD for Observation. Preliminary vt diagnosis is Anemia secondary to mestrual blood loss. Bed requested for Telemetry/MedSurg (observation). Status is Observation. Condition is Stable. Problem is new. Symptoms have improved. UTI on Admission? No. vt 03/25 00:13 03/24 23:53 03/24/2018 23:52 Hospitalization Ordered by Maribell Johnson MD for Observation. Preliminary diagnosis is Anemia secondary to mestrual blood loss. Bed requested for Telemetry/MedSurg (observation). Status is Observation. Condition is Stable. Problem is new. Symptoms have improved. UTI on Admission? No. vt 03/25 00:15 00:13 03/24/2018 23:52 Hospitalization Ordered by Maribell Johnson MD for Observation. vt Preliminary diagnosis is Anemia secondary to mestrual blood loss. Bed requested for Telemetry/MedSurg (observation). Status is Observation. Condition is Stable. Problem is new. Symptoms have improved. UTI on Admission? No. mw 00:33 00:15 03/24/2018 23:52 Hospitalization Ordered by Maribell Johnson MD for Observation. rv Preliminary diagnosis is Anemia secondary to mestrual blood loss; Headache. Bed requested for Telemetry/MedSurg (observation). Status is Observation. Condition is Stable. Problem is new. Symptoms have improved. UTI on Admission? No. wa
[2018-03-25 00:01] LABS: Ferritin 1.8 ng/mL (8-388)
[2018-03-25] MEDS: NA CHLORIDE 0.9% 1,000 ML IV SCH ×2 (00:54→12:20)
[2018-03-25 01:13] VITALS: BMI 42.6
[2018-03-25 01:31] LABS: Hematocrit 21.9 % (36.0-45.0)
[2018-03-25] MEDS ORDERED: NA CHLORIDE 0.9% 250 ML ONE (02:14)
[2018-03-25 04:00] VITALS: O2SAT 97
--- NOTE | 2018-03-25 07:08 | EKG ---
Test Date: 2018-03-24 Test Time: 21:22:02 Supervisor Dental Laboratory: [facility]IEN MEASUREMENT RESULTS: Intervals: Rate: 83 WI: 128 QRSD: 80 QT: 388 QTc: 455 [place]: P: 47 WI: 128 QRS: 35 T: 35 INTERPRETIVE STATEMENTS: Normal sinus rhythm Normal ECG Compared to ECG 11/04/2017 10:00:35 No significant changes Electronically Signed On 03-25-18 07:06:58 UTILITY BILL COLLECTOR by Anton Molina
[2018-03-25] MEDS ORDERED: FERROUS SULFATE 325 MG TAB PO SCH ×2 (09:00→14:00)
[2018-03-25] MEDS ORDERED: LISINOPRIL 20 MG TAB PO SCH (09:00)
--- NOTE | 2018-03-25 11:13 | P.PN ---
Subjective Date of Service: 03/25/18 Primary Care Provider: Steve Avalos; Or Assistant-[facility] Chief Complaint: Fatigue, abnormal uterine bleeding Subjective: Improving Physical Examination - Vital Signs Temperature: 97.5 F Blood Pressure: 133/62 Pulse: 82 Respirations: 16 Pulse Ox (%): 99 - Physical Exam General: Alert, In no apparent distress, Oriented x3, Cooperative HEENT: Atraumatic Neck: Supple Respiratory: Clear to auscultation bilaterally, Normal air movement Cardiovascular: Normal pulses, Regular rate/rhythm Gastrointestinal: Normal bowel sounds, Soft and benign, Non-distended, No tenderness, No masses, No rebound, No guarding Musculoskeletal: No erythema, No tenderness, No warmth Integumentary: No erythema, No warmth, No cyanosis Neurological: Normal speech, Normal strength at 5/5 x4 extr, Normal tone, Normal affect - Studies Laboratory Data (last 24 hrs) 03/24/18 20:52: PT 13.0 H, INR 1.10 03/24/18 20:52: WBC 7.6, Hgb 6.7 L*, Hct 23.0 L, Plt Count 279 03/24/18 20:52: Sodium 140, Potassium 3.2 L, BUN 8, Creatinine 0.70, Glucose 118 H, Total Bilirubin 0.6, AST 11 L, ALT 18, Alkaline Phosphatase 94 Medications List Reviewed: Yes Assessment & Plan Discharge Plan: Home Plan to discharge in: 24 Hours Physician Review Additional Text: Impression: Fatigue, acute on chronic abnormal uterine bleeding complicated with acute on chronic severe symptomatic anemia with history of iron and B12 deficiency Acute on chronic severe symptomatic anemia with history of iron and B12 deficiency Hypertension Hypothyroidism Obesity, BMI 42 Plan: Fatigue, acute on chronic abnormal uterine bleeding complicated with acute on chronic severe symptomatic anemia with history of iron and B12 deficiency: Patient currently getting transfusion. 2 units to be given. Will recheck hemoglobin after transfusion done. If hemoglobin above 7 then the patient can be discharged home. Abnormal uterine bleeding improved. This is chronic. Patient seen by [facility]. Recommend for the patient to follow up at [facility] to further address. Patient likely a good candidate for hysterectomy in the near future as the patient has received transfusions in the past. Will also need to consider IUD placement or uterine ablation to help with uterine bleeding. This can be done as an outpatient. Patient counseled on close follow up with her PCP as the patient may require IV iron or transfusion as an outpatient. CBC, iron and B12. Will need to be monitored closely. At discharge patient will continue with iron 325 mg 1 pill 3 times a day and vitamin B12 1000 mg IM every month. Acute on chronic severe symptomatic anemia with history of iron and B12 deficiency: Patient required blood transfusion. Patient to get 2 units. Will recheck hemoglobin. If stable patient can be discharged home. Continue with above recommendations with increase in iron to 325 mg 1 pill 3 times a day and vitamin-B 12 1000 mg IM every month. Levels will need to be monitored closely. Patient may require IV iron as an outpatient. Patient may also require repeat transfusion as an outpatient. Hypertension: Overall stable. Patient will continue with lisinopril 20 mg daily. Hypothyroidism: Overall stable. Will continue with Levoxyl 100 mcg daily Obesity, BMI 42: Lifestyle modification education to be continued. Time Spent Managing Pts Care (In Minutes): 55
[2018-03-25] MEDS ORDERED: CYANOCOBALAMIN 1000MCG/ML INJ IM SCH (12:00)
[2018-03-25 12:19] LABS: Absolute Lymphocytes (CBC) 1.4 K/uL (0.7-4.9); Absolute Monocytes 0.4 K/uL (0.1-1.3); Absolute Neutrophil 4.3 K/uL (1.8-8.0); Basophils % 0.4 % (0-1.3); Eosinophils % 1.1 % (0-4.4); Hematocrit 25.5 % (36.0-45.0); Lymphocytes % 22.5 % (15.3-44.8); MCH 20.1 pg (27.0-35.0); MCV 64.6 fL (80-100); MPV 8.7 fL (7.6-11.3); Monocytes % 6.1 % (3.3-12.3); RBC Red Blood Cell Count 3.95 M/uL (3.86-4.86)
[2018-03-25 12:34] LABS: Protime INR 1.14
[2018-03-25 12:39] LABS: ALT/SGPT 17 U/L (12-78); AST/SGOT 11 U/L (15-37); Albumin 3.4 g/dL (3.4-5.0); Alkaline Phosphatase 81 U/L (45-117); BUN Blood Urea Nitrogen 5 mg/dL (7-18); Bicarbonate 23 mmol/L (21-32); Bilirubin Total 1.8 mg/dL (0.2-1.0); Glucose Level 95 mg/dL (74-106); Potassium 3.8 mmol/L (3.5-5.1); Protein, Total 7.1 g/dL (6.4-8.2); Sodium Level 140 mmol/L (136-145)
--- NOTE | 2018-03-25 13:01 | P.HP ---
Certification for Inpatient Patient admitted to: Inpatient With expected LOS: >2 Midnights Patient will require the following post-hospital care: None Practitioner: I am a practitioner with admitting privileges, knowledge of patient current condition, hospital course, and medical plan of care. Services: Services provided to patient in accordance with Admission requirements found in Title 42 Section 412.3 of the Code of Federal Regulations Patient History Date of Service: 03/24/18 Reason for admission: Fatigue, abnormal uterine bleeding History of Present Illness: Patient is a 47-year-old female who presents with abnormal uterine bleeding. Patient has been having bleeding for quite a while. She goes to ID and [facility]. They have given her a Depo-Provera shot but at this time no other studies have been done. Patient came into the hospital because she was feeling weak and short of breath. In the emergency room her blood count came back at 6.5. She was admitted to the hospital for further evaluation regarding her abnormal bleeding. Patient has not had this worked up. She comes into our hospital going this summer care may be limited. However she is wanting to stay here for further treatment. Allergies No Known Drug Allergies Allergy (Verified 12/03/14 20:41) Unknown Home Medications: Ferrous Sulfate 1 tab PO BID 03/25/18 Levothyroxine [Synthroid*] 1 tab PO [id number] 03/25/18 Lisinopril 1 tab PO DAILY 03/25/18 - Past Medical/Surgical History Has patient received pneumonia vaccine in the past: No Diabetic: No -: Osteoarthritis -: Hypertension -: anemia -: Cholecystectomy -: Partial thyroidectomy - Family History Father Medical History: Heart disease Mother Medical History: Heart disease - Social History Smoking Status: Never smoker Alcohol use: No CD- Drugs: No Caffeine use: Yes Place of Residence: Home Physical Examination - Vital Signs Temperature: 97.5 F Blood Pressure: 133/62 Pulse: 82 Respirations: 16 Pulse Ox (%): 99 - Physical Exam General: Alert, In no apparent distress, Oriented x3 HEENT: Atraumatic, PERRLA, Mucous membr. moist/pink, EOMI, Sclerae nonicteric Neck: Supple, 2+ carotid pulse no bruit, No LAD, Without JVD or thyroid abnormality Respiratory: Clear to auscultation bilaterally, Normal air movement Cardiovascular: Regular rate/rhythm, Normal S1 S2, No murmurs Gastrointestinal: Normal bowel sounds, Soft and benign, Non-distended ( wound hernia), No tenderness Musculoskeletal: No tenderness Integumentary: No rashes Neurological: Normal gait, Normal speech, Normal strength at 5/5 x4 extr, Normal tone, Sensation intact, Cranial nerves 3-12 intact, Normal affect Lymphatics: No axilla or inguinal lymphadenopathy - Studies Laboratory Data (last 24 hrs) 03/24/18 20:52: PT 13.0 H, INR 1.10 03/24/18 20:52: WBC 7.6, Hgb 6.7 L*, Hct 23.0 L, Plt Count 279 03/24/18 20:52: Sodium 140, Potassium 3.2 L, BUN 8, Creatinine 0.70, Glucose 118 H, Total Bilirubin 0.6, AST 11 L, ALT 18, Alkaline Phosphatase 94 Assessment & Plan - Problems (Diagnosis) (1) Shortness of breath Current Visit: Yes Status: Acute (2) Acute blood loss anemia Onset Date: 03/25/18 Current Visit: Yes Status: Acute (3) Symptomatic anemia Onset Date: 09/18/15 Current Visit: No Status: Acute (4) Weakness Onset Date: 05/27/16 Current Visit: No Status: Acute - Plan Plan: 1. Monitor H&H closely 2. discussed with OB regarding further treatment 3. pelvic ultrasound 4. OB consultation 5. monitor renal function and other electrolytes 6. GI DVT prophylaxis Discharge Plan: Home Plan to discharge in: Greater than 2 days - Advance Directives Does patient have a Living Will: No Does patient have a Durable POA for Healthcare: No - Code Status/Comfort Care Code Status Assessed: Yes Code Status: Full Code Critical Care: No Time Spent Managing PTS Care (In Minutes): 55
--- NOTE | 2018-03-25 14:11 | P.DS ---
Admission Date: 03/24/18 Discharge Date: 03/25/18 Primary Care Provider: Steve Avalos; Biochemical Engineer-[facility] Disposition: ROUTINE DISCHARGE Discharge Condition: GOOD Reason for Admission: Fatigue, abnormal uterine bleeding Consultations: none Procedures: Medical Problem List: Fatigue, acute on chronic abnormal uterine bleeding complicated with acute on chronic severe symptomatic anemia with history of iron and B12 deficiency Acute on chronic severe symptomatic anemia with history of iron and B12 deficiency Hypertension Hypothyroidism Obesity, BMI 42 Brief History of Present Illness: 47 yo HF presented to the ER with fatigue and abnormal uterine bleeding. She is seen by DIETITIAN ASSISTANT at the [facility] for this in the past. Patient has required transfusions. Patient presented with a low hemoglobin. The patient was admitted for treatment. Hospital Course: Patient presented with fatigue. Patient with history of chronic abnormal uterine bleeding and chronic anemia with iron and B12 deficiency. Her bleeding has increased over the last week. The patient has been more symptomatic. The patient is seen by gynecology at the [facility]. She has gotten medication-Depo shot to help with her bleeding. In the ER she was found to be severely anemic and symptomatic. Patient was admitted for transfusion. Initial hemoglobin 6.7. Repeat was 6.5. Patient received 2 units of blood. After 2 units patient hemoglobin up to 7.9. Patient found to be severely iron and B12 deficient. Patient received vitamin-B 12 injection. Medication has been adjusted. At discharge patient will continue with iron 325 mg 1 pill 3 times a day and vitamin B12 supplementation daily. Recommendation is to recheck lab-CBC, vitamin-B 12, iron in 1 week to monitor progress. Patient may require repeat transfusion in the near future if hemoglobin remains below 7.0. This can be done as an outpatient. This can be set up by her PCP through outpatient services. Also, Recommendation for the patient to see Hematology and GI as an outpatient for further evaluation her anemia. Patient will likely require EGD and colonoscopy. Patient may require IV iron in the future if she continues to be anemic with oral iron. She may also need Vitamin B12 IM if she remains with low on oral B12. Recommendation is for the patient to follow up with gynecology in 1 week monitor progress as well. Gynecology may consider IUD versus uterine ablation versus hysterectomy. Pelvic ultrasound obtained at discharge. This can be followed up as an outpatient. Recommend to follow up with gynecology and PCP to further address. Patient with hypertension. At discharge she will continue with lisinopril 20 mg daily. Recommendation is to maintain blood pressures less 150/80. Further adjustment can be done by her PCP. Patient has hypothyroidism. Patient will continue with Levoxyl 100 mcg daily. Patient has obesity. Lifestyle modification education provided. Recommend on no further use of nonsteroidal anti-inflammatories. Vital Signs/Physical Exam: Temp Pulse Resp BP Pulse Ox 97.5 F 82 16 133/62 99 03/25/18 13:01 03/25/18 13:01 03/25/18 13:01 03/25/18 13:01 03/25/18 13:01 General: Alert, In no apparent distress, Oriented x3, Cooperative HEENT: Atraumatic Neck: Supple Respiratory: Clear to auscultation bilaterally, Normal air movement Cardiovascular: Normal pulses, Regular rate/rhythm Gastrointestinal: Normal bowel sounds, Soft and benign, Non-distended, No tenderness, No masses, No rebound, No guarding Musculoskeletal: No erythema, No tenderness, No warmth Integumentary: No tenderness/swelling, No erythema, No warmth, No cyanosis Neurological: Normal speech, Normal strength at 5/5 x4 extr, Normal tone, Normal affect Lymphatics: No axilla or inguinal lymphadenopathy Laboratory Data at Discharge: WBC 6.2 K/uL (4.3-10.9) D 03/25/18 11:41 Hgb 7.9 g/dL (12.0-15.0) L* 03/25/18 11:41 Hct 25.5 % (36.0-45.0) L D 03/25/18 11:41 Plt Count 274 K/uL (152-406) 03/25/18 11:41 PT 13.5 SECONDS (9.5-12.5) H 03/25/18 11:41 INR 1.14 03/25/18 11:41 APTT 29.0 SECONDS (24.3-36.9) 03/25/18 11:41 Sodium 140 mmol/L (136-145) 03/25/18 11:41 Potassium 3.8 mmol/L (3.5-5.1) 03/25/18 11:41 BUN 5 mg/dL (7-18) L 03/25/18 11:41 Creatinine 0.50 mg/dL (0.55-1.3) L 03/25/18 11:41 Glucose 95 mg/dL (74-106) 03/25/18 11:41 Total Bilirubin 1.8 mg/dL (0.2-1.0) H 03/25/18 11:41 AST 11 U/L (15-37) L 03/25/18 11:41 ALT 17 U/L (12-78) 03/25/18 11:41 Alkaline Phosphatase 81 U/L (45-117) 03/25/18 11:41 Home Medications: Cyanocobalamin (Vitamin B-12) [Vitamin B-12] 1,000 mcg PO DAILY #90 capsule 02/01 Ferrous Sulfate [Ferrous Sulfate*] 325 mg PO TID #90 tab 03/25/18 Levothyroxine [Synthroid*] 1 tab PO [id number] 03/25/18 Lisinopril 1 tab PO DAILY 03/25/18 New Medications: Cyanocobalamin (Vitamin B-12) [Vitamin B-12] 1,000 mcg PO DAILY #90 capsule Ferrous Sulfate [Ferrous Sulfate*] 325 mg PO TID #90 tab Patient Discharge Instructions: 1. Patient will need to follow up with her PCP to follow up this hospitalization. 2. Patient presented with fatigue. Patient with history of chronic abnormal uterine bleeding and chronic anemia with iron and B12 deficiency. Her bleeding has increased over the last week. The patient has been more symptomatic. The patient is seen by gynecology at the [facility]. She has gotten medication-Depo shot to help with her bleeding. In the ER she was found to be severely anemic and symptomatic. Patient was admitted for transfusion. Initial hemoglobin 6.7. Repeat was 6.5. Patient received 2 units of blood. After 2 units patient hemoglobin up to 7.9. Patient found to be severely iron and B12 deficient. Patient received vitamin-B 12 injection. Medication has been adjusted. At discharge patient will continue with iron 325 mg 1 pill 3 times a day and vitamin B12 supplementation daily. Recommendation is to recheck lab-CBC, vitamin-B 12, iron in 1 week to monitor progress. Patient may require repeat transfusion in the near future if hemoglobin remains below 7.0. This can be done as an outpatient. This can be set up by her PCP through outpatient services. Also, Recommendation for the patient to see Hematology and GI as an outpatient for further evaluation her anemia. Patient will likely require EGD and colonoscopy. Patient may require IV iron in the future if she continues to be anemic with oral iron. She may also need Vitamin B12 IM if she remains with low on oral B12. Recommendation is for the patient to follow up with gynecology in 1 week monitor progress as well. Gynecology may consider IUD versus uterine ablation versus hysterectomy. Pelvic ultrasound obtained at discharge. This can be followed up as an outpatient. Recommend to follow up with gynecology and PCP to further address. 3. Patient with hypertension. At discharge she will continue with lisinopril 20 mg daily. Recommendation is to maintain blood pressures less 150/80. Further adjustment can be done by her PCP. 4. Patient has hypothyroidism. Patient will continue with Levoxyl 100 mcg daily. 5. Patient has obesity. Lifestyle modification education provided. 6. Recommend on no further use of nonsteroidal anti-inflammatories. Diet: AHA Activity: Fall precautions Time spent managing pt's care (in minutes): 55
--- NOTE | 2018-03-25 15:55 | RAD REPORT ---
EXAM DESCRIPTION: US - Transvaginal Study Probe - 03/25/2018 3:08 pm CLINICAL HISTORY: Hyper menorrhagia COMPARISON: CT September 2017, pelvic ultrasound September 2015 TECHNIQUE: Endovaginal sonography was performed. FINDINGS: Left ovary contains a 1.5 centimeter anechoic cyst. No suspicious left ovarian or left adn exal finding. Right ovary was not identifiable. No right adnexal mass. Nabothian cysts are present. Heterogeneous fluid or hemorrhagic material is present in the endometria l cavity near the cervical canal. In the central uterus a 2.8 centimeter oval heterogeneous mass is i dentifiable. 2016 study showed an approximately 13 millimeter mass with generally similar heterogeneo us echotexture. In the fundal portion of the uterus a 2.5 centimeter mass is present believed to be a n intramural fibroid. Uterus overall is approximately 10 cm in length by 6.5 cm transverse. No abnormal free fluid in the c ul-de-sac. The central uterine 2.8 cm mass is nonspecific as to endometrial or myometrial origin. This is likely interval enlargement of a submucosal fibroid. However, an endometrial mass or malignancy cannot be e xcluded. Tissue sampling will likely be needed for definitive diagnosis. IMPRESSION: Prominent size uterus shows a central 2.8 centimeter heterogeneous mass indeterminate as being endometrial origin mass or a submucosal fibroid. Tissue sampling will likely be needed for definitive assessment. Benign-appearing fundal fibroid 2.5 cm in size. Benign cyst 15 mm in size left ovary with no left adnexal mass. Right ovary was nonvisualized. No right adnexal mass.
[2018-03-25 19:26] VITALS: BP 127/68; TEMP 97.4
[2018-03-26] MEDS ORDERED: LEVOTHYROXINE SOD 0.1 MG TAB PO SCH (06:00)
== END 2018-03-25 16:35 | disposition home or self-care (01) | DRG 760 ==
LOC: ER 19:11 → ERHOLD 22:54 → 2ND 03-25 00:28
PROVIDERS: ADMIT Hospitalist; ATTEND Family Medicine
DX: N93.9 Abnormal uterine and vaginal bleeding, unspecified (principal); D62 Acute posthemorrhagic anemia; Z68.41 Body mass index [BMI] 40.0-44.9, adult; M19.90 Unspecified osteoarthritis, unspecified site; I10 Essential (primary) hypertension; E03.9 Hypothyroidism, unspecified; E66.9 Obesity, unspecified
CPT/HCPCS: 36415; 36430; 71046; 76830; 80048; 80053; 80076; 81003; 81015; 81025; 82607; 82728; 83540; 83880; 84466; 84484; 85014; 85018; 85025; 85044; 85610; 85730; 86850; 86900; 86901; 93005; 99285; J2270; J3420; J7030; P9016

== ENCOUNTER 2018-06-26 15:13 | Emergency (ER) | payer SELFPAY ==
--- OUTSIDE RECORDS SUMMARY | 2018-06-26 15:16 | XMS REPORT ---
:1970 Author Organization [facility] Address [address] [place] [address] Care Team Providers Name Role Phone Unavailable Unavailable Unavailable Problems This patient has no known problems. Allergies, Adverse Reactions, Alerts This patient has no known allergies or adverse reactions. Medications This patient has no known medications.
--- NOTE | 2018-06-26 17:01 | ER ---
Nurse's Notes [facility] Name: Maryjane Meza Age: 48 yrs Sex: Female : 1970 Arrival Date: 06/26/2018 Time: 15:17 Bed Waiting Private MD: None, None Diagnosis: Presentation: 06/26 15:36 Presenting complaint: N/V/D and epigastric pain x 2 days. Denies fever. Transition of hb care: patient was not received from another setting of care. Onset of symptoms was June 24, 2018. Risk Assessment: Do you want to hurt yourself or someone else? Patient reports no desire to harm self or others. Initial Sepsis Screen: Does the patient meet any 2 criteria?. Care prior to arrival: None. 15:36 Method Of Arrival: Ambulatory hb 15:36 Acuity: HECTOR 3 hb Historical: - Allergies: 15:38 NKDA; hb - Home Meds: 15:38 cyanocobalamin (vit B-12) miscellaneous IM every 30 days [Active]; ferrous sulfate 325 hb mg (65 mg iron) Oral TbEC twice a day [Active]; hydrochlorothiazide 25 mg Oral tab 1 tab once daily [Active]; levothyroxine 100 mcg tab once daily [Active]; lisinopril 20 mg Oral tab [Active]; - PMHx: 15:38 Anemia; Hypertension; Hypothyroidism; hb - Immunization history:: Adult Immunizations up to date. - Social history:: Smoking status: Patient/guardian denies using tobacco. - Ebola Screening: : No symptoms or risks identified at this time. Vital Signs: 15:38 BP 161 / 89; Pulse 61; Resp 16; Temp 97.6; Pulse Ox 100% on R/A; Pain 4/10; hb ED Course: 15:17 Patient arrived in ED. sb2 15:17 None, None is Private Physician. sb2 15:37 Triage completed. hb 15:38 Arm band placed on left wrist. hb 16:48 Julieta Katz FNP-C [facility]. snw 16:48 Harjinder Osorio MD is Attending Physician. snw 16:49 Patient's name was called from ER lobby. No response. Unable to locate patient. Will hb disposition as left without being seen by a provider. Administered Medications: No medications were administered Outcome: 16:59 Patient left the ED. 17:29 Patient left the ED. ss Signatures: Julieta Katz, BRAKE ASSEMBLER-C BRAKE ASSEMBLER-Csnw Citlalli Schwazr RN RN Sadie Hernandez RN RN Rosaura Guerrero sb2
[2018-06-26 17:10] VITALS: BP 161/89; TEMP 97.6; O2SAT 100
== END 2018-06-26 17:29 | disposition left against medical advice (07) ==
LOC: ER 15:13
DX: R11.2 Nausea with vomiting, unspecified (principal); R19.7 Diarrhea, unspecified; Z53.21 Procedure and treatment not carried out due to patient leaving prior to being seen by health care provider; D64.9 Anemia, unspecified; E03.9 Hypothyroidism, unspecified; I10 Essential (primary) hypertension; Z79.899 Other long term (current) drug therapy
CPT/HCPCS: 99281

== ENCOUNTER 2020-08-07 15:03 | Emergency (ER) | payer SELFPAY ==
--- OUTSIDE RECORDS SUMMARY | 2020-08-07 15:05 | XMS REPORT | Continuity of Care Document ---
:1970 Author Organization [facility] t Address [address] [place] [id number] Care Team Providers Name Role Phone Unavailable Unavailable Unavailable Problems This patient has no known problems. Allergies, Adverse Reactions, Alerts This patient has no known allergies or adverse reactions. Medications This patient has no known medications. Procedures This patient has no known procedures. Results This patient has no known results.
[2020-08-07 17:56] LABS: Absolute Lymphocytes (CBC) 2.8 K/uL (0.7-4.9); Basophils % 0.8 % (0-1.3); Hematocrit 36.2 % (36.0-45.0); MPV 9.4 fL (7.6-11.3); RBC Red Blood Cell Count 4.47 M/uL (3.86-4.86)
--- NOTE | 2020-08-07 18:01 | RAD REPORT ---
EXAM DESCRIPTION: RAD - Chest Single View - 08/07/2020 5:51 pm CLINICAL HISTORY: CHEST PAIN COMPARISON: Two view chest March 24, 2018 TECHNIQUE: AP portable chest image was obtained 08/07/2020 5:51 pm . FINDINGS: Lung volumes are decreased compared to prior study. No peripheral mass or consolidation. I nterstitial pattern is not clearly different when adjusting for shallow inspiration. No significant f ailure or volume overload. Heart and vasculature are normal. No measurable pleural effusion and no pneumothorax. No acute bony abnormality seen. No acute aortic findings suspected. IMPRESSION: No acute cardiopulmonary process. No significant change from comparison study.
[2020-08-07 18:15] LABS: Protime INR 0.99
[2020-08-07 18:21] LABS: ALT/SGPT 24 U/L (12-78); AST/SGOT 15 U/L (15-37); Albumin 3.9 g/dL (3.4-5.0); Alkaline Phosphatase 93 U/L (45-117); BUN Blood Urea Nitrogen 13 mg/dL (7-18); Bicarbonate 26 mmol/L (21-32); Bilirubin Direct 0.1 mg/dL (0-0.2); Bilirubin Total 0.5 mg/dL (0.2-1.0); Glucose Level 131 mg/dL (74-106); Magnesium 2.1 mg/dL (1.8-2.4); NT PRO-BNP 10 pg/mL (<125); Potassium 3.4 mmol/L (3.5-5.1); Protein, Total 8.6 g/dL (6.4-8.2); Sodium Level 137 mmol/L (136-145); Troponin (Emerg Dept Use Only) < 0.02 ng/mL (0.0-0.045)
--- NOTE | 2020-08-07 19:09 | RAD REPORT ---
EXAM DESCRIPTION: CT - Head Brain Wo Cont - 08/07/2020 6:55 pm CLINICAL HISTORY: NUMBNESS, headache, hypertension COMPARISON: Ct Stroke Brain Wo Cont dated 05/26/2016 TECHNIQUE: Axial 5 mm thick images of the head were obtained without IV contrast. All CT scans are performed using dose optimization technique as appropriate and may include automated exposure control or mA/KV adjustment according to patient size. FINDINGS: No intracranial hemorrhage, mass, edema or shift of mid-line structures. No acute infarcti on changes seen. No abnormal extra-axial fluid collections. Ventricles are normal. No measurable atr ophy or chronic ischemic change. Mastoid air cells and visualized portions of the paranasal sinuses are clear. No acute bony findings. Asymmetry is created by head tilt. IMPRESSION: Negative non-contrast CT head examination. No significant change from the comparison study.
--- NOTE | 2020-08-07 19:23 | ER ---
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 [place] headache and some numbness of head 3 days ago. Chest pain more than 3 days ago. Coronavirus screen: Client denies travel out of the [place] in the last 14 days. At this time, the client does not indicate any symptoms associated with coronavirus-19. Ebola Screen: Patient negative for fever greater than or equal to 101.5 degrees Fahrenheit, and additional compatible Ebola Virus Disease symptoms Patient denies exposure to infectious person. Patient denies travel to an Ebola-affected area in the 21 days before illness onset. No symptoms or risks identified at this time. Initial Sepsis Screen: Does the patient meet any 2 criteria? No. Patient's initial sepsis screen is negative. Does the patient have a suspected source of infection? No. Patient's initial sepsis screen is negative. Risk Assessment: Do you want to hurt yourself or someone else? Patient reports no desire to harm self or others. Onset of symptoms was August 07, 2020. 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 - Social history:: Smoking status: Patient denies any tobacco usage or history of. Screenin:53 Abuse screen: Denies threats or abuse. Denies injuries from another. Nutritional zb screening: No deficits noted. Tuberculosis screening: No symptoms or risk factors identified. Fall Risk None identified. Assessment: 17:35 General: Appears uncomfortable, Behavior is calm, cooperative, appropriate for age. zb Pain: Complains of pain in forehead, back and chest Pain radiates to back Pain currently is 7 out of 10 on a pain scale. Pain began 2-3 days ago. Neuro: Level of Consciousness is awake, alert, obeys commands, Oriented to person, place, time, situation. Neuro: Reports headache. Cardiovascular: Capillary refill < 3 seconds Patient's skin is warm and dry. Respiratory: Airway is patent Respiratory effort is even, unlabored, Respiratory pattern is regular, symmetrical. GI: No signs and/or symptoms were reported involving the gastrointestinal system. : No signs and/or symptoms were reported regarding the genitourinary system. Derm: Skin is intact, is healthy with good turgor, Skin is dry, Skin is normal, Skin temperature is warm. Musculoskeletal: Range of motion: intact in all extremities. 18:35 Reassessment: Patient appears in no apparent distress at this time. Patient and/or zb family updated on plan of care and expected duration. Pain level reassessed. Patient is alert, oriented x 3, equal unlabored respirations, skin warm/dry/pink. slight nausea. given nausea bag. 19:09 Reassessment: Patient appears in no apparent distress at this time. Patient and/or zb family updated on plan of care and expected duration. Pain level reassessed. Patient is alert, oriented x 3, equal unlabored respirations, skin warm/dry/pink. patient awaiting results. 19:38 Reassessment: Patient appears in no apparent distress at this time. Patient and/or zb family updated on plan of care and expected duration. Pain level reassessed. Patient is alert, oriented x 3, equal unlabored respirations, skin warm/dry/pink. d/c instructions explained to patient in lao by charge nurse. IV removed. gait even and steady upon d/c. Vital Signs: 15:32 BP 144 / 82; Pulse 89; Resp 16 S; Temp 97.5(TE); Pulse Ox 100% on R/A; Weight 122.47 kg ca1 (R); Height 5 ft. 7 in. (170.18 cm) (R); Pain 8/10; 18:20 BP 131 / 87; Pulse 70; Resp 18; Pulse Ox 98% on R/A; zb 19:40 BP 130 / 85; Pulse 75; Resp 16; Pulse Ox 98% on R/A; zb 15:32 Body Mass Index 42.29 (122.47 kg, 170.18 cm) ca1 ED Course: 15:07 Patient arrived in ED. as 15:36 Triage completed. ca1 15:37 Arm band placed on right wrist. ca1 17:24 Clari Chaudhry FNP-C is [facility]. kb 17:24 Selwyn Roberts MD is Attending Physician. kb 17:36 Deanna Ritchie, RN is Primary Nurse. zb 17:51 XRAY Chest (1 view) In Process Unspecified. EDMS 18:53 Patient has correct armband on for positive identification. Bed in low position. Call zb light in reach. Side rails up X 1. telemetry monitor on. Pulse ox on. NIBP on. Door closed. Noise minimized. 18:54 CT Head Brain wo Cont In Process Unspecified. EDMS 19:39 No provider procedures requiring assistance completed. IV discontinued, intact, zb bleeding controlled, No redness/swelling at site. Pressure dressing applied. Patient maintains SpO2 saturation greater than 95% on room air. Administered Medications: No medications were administered Outcome: 19:22 Discharge ordered by . kb 19:40 Discharged to home ambulatory. zb 19:40 Condition: stable 19:40 Discharge instructions given to patient, Instructed on discharge instructions, follow up and referral plans. Demonstrated understanding of instructions, follow-up care. 19:41 Patient left the ED. zb Signatures: Dispatcher [employer] [facility] Clari Chaudhry FNP-C FNP-Tami Thomas Cheryl, RN RN ca1 Deanna Ritchie RN RN zjason
--- NOTE | 2020-08-07 19:23 | EDPHYS ---
Physician Documentation [facility] Name: Maryjane Meza Age: 50 yrs Sex: Female : 1970 Arrival Date: 08/07/2020 Time: 15:07 Bed 23 Private MD: ED Physician Selwyn Roberts HPI: 08/07 20:02 This 50 yrs old Female presents to ER via Ambulatory with complaints of Chest kb Pain, High Blood Pressure, Headache. 20:02 The patient has elevated blood pressure and discovered this at home. Onset: The kb symptoms/episode began/occurred 1 week(s) ago. Associated signs and symptoms: Pertinent positives: headache. The patient has experienced similar episodes in the past, a few times. The patient has been recently seen by a physician: the patient's primary care provider, with similar presenting complaints. Pt reports her BP has been fluctuating for the last week. States she has had an intermittent headache and her head feels numb at times. Saw her PCP for this this week and was told her symptoms were due to stress. 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 - Social history:: Smoking status: Patient denies any tobacco usage or history of. ROS: 20:01 Constitutional: Negative for fever, chills, and weight loss, Cardiovascular: Negative kb for chest pain, palpitations, and edema, Respiratory: Negative for shortness of breath, cough, wheezing, and pleuritic chest pain, Abdomen/GI: Negative for abdominal pain, nausea, vomiting, diarrhea, and constipation, MS/Extremity: Negative for injury and deformity, Skin: Negative for injury, rash, and discoloration. 20:01 Neuro: Positive for headache. Exam: 20:01 Constitutional: This is a well developed, well nourished patient who is awake, alert, kb and in no acute distress. Head/Face: Normocephalic, atraumatic. Cardiovascular: Regular rate and rhythm with a normal S1 and S2. No gallops, murmurs, or rubs. No pulse deficits. Respiratory: Respirations even and unlabored. No increased work of breathing, no retractions or nasal flaring. Abdomen/GI: Soft, non-tender. No distention Skin: Warm, dry with normal turgor. Normal color. MS/ Extremity: Pulses equal, no cyanosis. Neurovascular intact. Full, normal range of motion. Neuro: Awake and alert, GCS 15, oriented to person, place, time, and situation. Moves all extremities. Normal gait. Vital Signs: 15:32 BP 144 / 82; Pulse 89; Resp 16 S; Temp 97.5(TE); Pulse Ox 100% on R/A; Weight 122.47 kg ca1 (R); Height 5 ft. 7 in. (170.18 cm) (R); Pain 8/10; 18:20 BP 131 / 87; Pulse 70; Resp 18; Pulse Ox 98% on R/A; zb 19:40 BP 130 / 85; Pulse 75; Resp 16; Pulse Ox 98% on R/A; zb 15:32 Body Mass Index 42.29 (122.47 kg, 170.18 cm) ca1 MDM: 17:24 Patient medically screened. kb 20:01 Data reviewed: vital signs, nurses notes. Data interpreted: Pulse oximetry: on room air kb is 98 %. Interpretation: normal. Counseling: I had a detailed discussion with the patient and/or guardian regarding: the historical points, exam findings, and any diagnostic results supporting the discharge/admit diagnosis, lab results, radiology results, the need for outpatient follow up, a family practitioner, to return to the emergency department if symptoms worsen or persist or if there are any questions or concerns that arise at home. 08/07 17:25 Order name: Basic Metabolic Panel kb 08/07 17:25 Order name: CBC with Diff; Complete Time: 19:11 kb 08/07 17:25 Order name: LFT's; Complete Time: 18:30 kb 08/07 17:25 Order name: Magnesium; Complete Time: 18:30 kb 08/07 17:25 Order name: NT PRO-BNP; Complete Time: 18:30 kb 08/07 17:25 Order name: PT-INR; Complete Time: 18:16 kb 08/07 15:40 Order name: EKG; Complete Time: 15:40 ca1 08/07 15:40 Order name: EKG - Nurse/Tech; Complete Time: 15:43 ca1 08/07 17:25 Order name: Troponin (emerg Dept Use Only); Complete Time: 18:30 kb 08/07 17:25 Order name: XRAY Chest (1 view); Complete Time: 18:04 kb 08/07 17:25 Order name: Cardiac monitoring; Complete Time: 17:36 kb 08/07 17:25 Order name: IV Saline Lock; Complete Time: 17:47 kb 08/07 17:26 Order name: Basic Metabolic Panel; Complete Time: 18:30 EDMS 08/07 18:16 Order name: CT Head Brain wo Cont; Complete Time: 19:11 kb 08/07 17:25 Order name: Labs collected and sent; Complete Time: 17:47 kb 08/07 17:25 Order name: O2 Per Protocol; Complete Time: 17:48 kb 08/07 17:25 Order name: O2 Sat Monitoring; Complete Time: 17:48 kb Administered Medications: No medications were administered Disposition: 08/08 08:12 Co-signature as Attending Physician, Selwyn Roberts MD I agree with the assessment and kdr plan of care. Disposition: 08/07/20 19:22 Discharged to Home. Impression: Essential (primary) hypertension. - Condition is Stable. - Discharge Instructions: Hypertension, [id number], Managing Your Hypertension. - Medication Reconciliation Form, Thank You Letter, Antibiotic Education, Prescription Opioid Use form. - Follow up: Emergency Department; When: As needed; Reason: Worsening of condition. Follow up: Private Physician; When: 2 - 3 days; Reason: Recheck today's complaints, Continuance of care, Re-evaluation by your physician. Signatures: Dispatcher [employer] Clari Terry, HEARING AID ASSEMBLY SUPERVISOR-C HEARING AID ASSEMBLY SUPERVISOR-CkSelwyn Mckeon MD MD kdr Acob, Cheryl, RN RN Deanna Darling RN RN zb Corrections: (The following items were deleted from the chart) 08/07 19:41 19:22 08/07/2020 19:22 Discharged to Home. Impression: Essential (primary) zb hypertension. Condition is Stable. Forms are Medication Reconciliation Form, Thank You Letter, Antibiotic Education, Prescription Opioid Use. Follow up: Emergency Department; When: As needed; Reason: Worsening of condition. Follow up: Private Physician; When: 2 - 3 days; Reason: Recheck today's complaints, Continuance of care, Re-evaluation by your physician. kb
[2020-08-07 21:54] VITALS: TEMP 97.5
[2020-08-07 21:55] VITALS: O2SAT 98
[2020-08-07 21:56] VITALS: BP 130/85
--- NOTE | 2020-08-08 07:19 | EKG ---
Test Date: 2020-08-07 Test Time: 15:41:44 Industrial Sales Representative: NYLA MEASUREMENT RESULTS: Intervals: Rate: 83 MI: 138 QRSD: 74 QT: 380 QTc: 446 [place]: P: 63 MI: 138 QRS: 55 T: 60 INTERPRETIVE STATEMENTS: Normal sinus rhythm Normal ECG Compared to ECG 03/24/2018 21:22:02 No significant changes Electronically Signed On 08-08-20 07:18:09 CDT by Anton Molina
== END 2020-08-07 19:41 | disposition home or self-care (01) ==
LOC: ER 15:03
DX: I10 Essential (primary) hypertension (principal)
CPT/HCPCS: 36415; 70450; 71045; 80048; 80076; 83735; 83880; 84484; 85025; 85610; 93005; 99284

== ENCOUNTER 2020-11-16 12:48 | Emergency (ER) | payer SELFPAY ==
--- OUTSIDE RECORDS SUMMARY | 2020-11-16 12:53 | XMS REPORT | Continuity of Care Document ---
:1970 Author Organization [facility] t Address [address] [place] [address] Dr. Kunz [address] [place] [id number] Care Team Providers Name Role Phone Unavailable Unavailable Unavailable Problems This patient has no known problems. Allergies, Adverse Reactions, Alerts This patient has no known allergies or adverse reactions. Medications This patient has no known medications. Procedures This patient has no known procedures. Results This patient has no known results.
[2020-11-16 14:34] LABS: Urine Blood Trace-intact (Negative); Urine Glucose Negative (Negative); Urine Protein Negative (Negative); Urine Specific Gravity 1.025 (1.005-1.030); Urine pH 6.5 (5.0-7.0)
[2020-11-16] MEDS ORDERED: FUROSEMIDE 20 MG/ 2ML VIAL ONE (17:10)
[2020-11-16 17:20] LABS: ALT/SGPT 24 U/L (12-78); AST/SGOT 17 U/L (15-37); Albumin 3.7 g/dL (3.4-5.0); Alkaline Phosphatase 84 U/L (45-117); BUN Blood Urea Nitrogen 10 mg/dL (7-18); Bicarbonate 24 mmol/L (21-32); Bilirubin Direct 0.1 mg/dL (0-0.2); Bilirubin Total 0.5 mg/dL (0.2-1.0); Glucose Level 97 mg/dL (74-106); NT PRO-BNP 290 pg/mL (<125); Potassium 3.6 mmol/L (3.5-5.1); Protein, Total 7.9 g/dL (6.4-8.2); Sodium Level 139 mmol/L (136-145); Troponin (Emerg Dept Use Only) < 0.02 ng/mL (0.0-0.045)
[2020-11-16 17:26] LABS: Absolute Lymphocytes (CBC) 2.3 K/uL (0.7-4.9); Basophils % 0.3 % (0-1.3); Hematocrit 33.3 % (36.0-45.0); Lymphocytes % 26.4 % (15.3-44.8); MPV 9.1 fL (7.6-11.3); RBC Red Blood Cell Count 4.07 M/uL (3.86-4.86)
[2020-11-16 17:28] LABS: Protime INR 1.05
--- NOTE | 2020-11-16 18:34 | RAD REPORT ---
EXAM DESCRIPTION: RAD - Chest Single View - 11/16/2020 6:20 pm CLINICAL HISTORY: SOB Chest pain. COMPARISON: <Comparisons> FINDINGS: Portable technique limits examination quality. Interstitial markings are mildly prominent which may indicate mild interstitial edema. The heart is n ormal in size. No displaced fractures.
--- NOTE | 2020-11-16 18:54 | RAD REPORT ---
EXAM DESCRIPTION: US - Extrem Venous W Compress Femi - 11/16/2020 6:43 pm CLINICAL HISTORY: swelling, sob Bilateral leg edema and swelling. COMPARISON: <Comparisons> TECHNIQUE: Real-time sonographic interrogation of the left and right lower extremity deep venous sys tems was performed. FINDINGS: Normal compressibility, flow augmentation, phasic flow and spontaneous flow is identified in both the left and right lower extremity deep venous systems. IMPRESSION: No sonographic evidence of left or right lower extremity deep venous thrombosis.
[2020-11-16] MEDS ORDERED: NA CHLORIDE 0.9% 250 ML ONE (19:57)
[2020-11-16] MEDS ORDERED: METOCLOPRAMIDE 10 MG/2mL INJ ONE (19:57)
--- NOTE | 2020-11-16 20:45 | ER ---
Nurse's Notes [facility] Name: Maryjane Meza Age: 50 yrs Sex: Female : 1970 Arrival Date: 11/16/2020 Time: 12:52 Bed 19 Private MD: Diagnosis: Edema, unspecified Presentation: 11/16 13:00 Chief complaint: Patient states: left arm and leg swelling, Difficulty urinating, and kg "feeling like fluid on my chest and my head feels numb." x 1 week. I saw my PCP last week for the leg and arm swelling and I've gained 8 pounds. Coronavirus screen: Client denies travel out of the [place] in the last 14 days. At this time, unable to obtain information related to travel outside the [place] At this time, the client does not indicate any symptoms associated with coronavirus-19. Ebola Screen: Patient negative for fever greater than or equal to 101.5 degrees Fahrenheit, and additional compatible Ebola Virus Disease symptoms Patient denies exposure to infectious person. Patient denies travel to an Ebola-affected area in the 21 days before illness onset. Initial Sepsis Screen: Does the patient meet any 2 criteria? No. Patient's initial sepsis screen is negative. Does the patient have a suspected source of infection? No. Patient's initial sepsis screen is negative. Risk Assessment: Do you want to hurt yourself or someone else? Patient reports no desire to harm self or others. Onset of symptoms was November 09, 2020. 13:00 Method Of Arrival: Ambulatory kg 13:00 Acuity: HECTOR 3 kg Triage Assessment: 13:12 General: Appears in no apparent distress. Behavior is calm, cooperative, appropriate kg for age, quiet. Pain: Denies pain. 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 - Social history:: Smoking status: Patient denies any tobacco usage or history of. Screenin:15 Abuse screen: Denies threats or abuse. Denies injuries from another. Nutritional kg screening: No deficits noted. Tuberculosis screening: No symptoms or risk factors identified. Fall Risk None identified. Fall in past 12 months (25 points). No secondary diagnosis (0 pts). No IV (0 pts). Ambulatory Aid- None/Bed Rest/Nurse Assist (0 pts). Gait- Normal/Bed Rest/Wheelchair (0 pts) Mental Status- Oriented to own ability (0 pts). Total Mane Fall Scale indicates No Risk (0-24 pts). Assessment: 16:52 General: Appears uncomfortable, Behavior is calm, cooperative, appropriate for age. zb Pain: Complains of pain in top of head and forehead Pain radiates to top of head and left frontal area Pain currently is 6 out of 10 on a pain scale. Quality of pain is described as aching, tingling, Pain began 2-3 days ago. Is continuous. Neuro: Level of Consciousness is awake, alert, obeys commands, Oriented to person, place, time, situation. Cardiovascular: Reports shortness of breath, Heart tones S1 S2 present Patient's skin is warm and dry. Pulses. GI: Abdomen is round obese, Bowel sounds present X 4 quads. Abd is soft and non tender X 4 quads. Derm: Skin is intact, is healthy with good turgor. Musculoskeletal: Range of motion: intact in all extremities, Swelling present in right leg and left leg. 17:47 Reassessment: Patient appears in no apparent distress at this time. Patient and/or zb family updated on plan of care and expected duration. Pain level reassessed. Patient is alert, oriented x 3, equal unlabored respirations, skin warm/dry/pink. bedside commode at bedside. patient able to ambulate to it. w/o assistance. 18:00 Reassessment: Patient appears in no apparent distress at this time. Patient and/or zb family updated on plan of care and expected duration. Pain level reassessed. Patient is alert, oriented x 3, equal unlabored respirations, skin warm/dry/pink. 18:59 Reassessment: Patient appears in no apparent distress at this time. Patient and/or zb family updated on plan of care and expected duration. Pain level reassessed. Patient is alert, oriented x 3, equal unlabored respirations, skin warm/dry/pink. 20:07 Reassessment: Patient appears in no apparent distress at this time. Patient and/or zb family updated on plan of care and expected duration. Pain level reassessed. Patient is alert, oriented x 3, equal unlabored respirations, skin warm/dry/pink. lights dimmed. Iv fluid infusing. 20:58 Reassessment: patient ambulated out. no c/o at this time. gait even and steady. zb Vital Signs: 13:00 BP 148 / 81; Pulse 83; Resp 20; Temp 98.4(O); Pulse Ox 100% on R/A; Weight 131.9 kg kg (R); Height 5 ft. 6 in. (167.64 cm) (R); Pain 8/10; 17:17 BP 168 / 83; Pulse 67; Resp 18; Pulse Ox 100% on R/A; zb 18:00 BP 147 / 82; Pulse 74; Resp 18; Pulse Ox 99% on R/A; zb 19:01 BP 147 / 79; Pulse 66; Resp 16; Pulse Ox 99% on R/A; zb 20:06 BP 144 / 84; Pulse 68; Resp 16; Pulse Ox 99% on R/A; zb 13:00 Body Mass Index 46.94 (131.90 kg, 167.64 cm) kg ED Course: 12:52 Patient arrived in ED. mr 13:07 Triage completed. kg 13:15 Patient has correct armband on for positive identification. kg 13:15 Arm band placed on right wrist. kg 16:00 Rob Peña PA is PHCP. [facility] 16:00 Selwyn Roberts MD is Attending Physician. [facility] 16:51 Deanna Ritchie RN is Primary Nurse. zb 16:55 Warm blanket given. Pillow given. conservation scientist on. Pulse ox on. NIBP on. mh5 16:55 Initial lab(s) drawn, by me, sent to lab. Inserted saline lock: 22 gauge in left mh5 forearm, using aseptic technique. Blood collected. 17:16 Basic Metabolic Panel Sent. sv 17:46 Placed in gown. Bed in low position. Call light in reach. Side rails up X 1. BEDSIDE 5 COMMODE 1000CC OUTPUT. 17:48 EKG done, by ED staff, reviewed by Rob ANDERSON. zb 18:20 XRAY Chest (1 view) In Process Unspecified. EDMS 18:44 US Extremity Venous W Compression Femi In Process Unspecified. EDMS 20:57 No provider procedures requiring assistance completed. IV discontinued, intact, zb bleeding controlled, No redness/swelling at site. Pressure dressing applied. Administered Medications: 16:53 Drug: Lasix (furosemide) 20 mg Route: IVP; Site: left antecubital; tr6 17:48 Follow up: Response: No adverse reaction; Marked relief of symptoms zb 19:39 Drug: Reglan (metoCLOPramide) 10 mg Route: IVP; Site: left antecubital; zb 20:30 Follow up: Response: No adverse reaction; Marked relief of symptoms; Pain is decreased zb Output: 17:00 Urine: 1000ml (Voided); Total: 1000ml. 5 19:08 Urine: 800ml (Voided); Total: 1800ml. zb Outcome: 20:44 Discharge ordered by . jm 20:57 Discharged to home ambulatory. zb 20:57 Condition: stable 20:57 Discharge instructions given to patient, Instructed on discharge instructions, follow up and referral plans. medication usage, Demonstrated understanding of instructions, follow-up care, medications, Prescriptions given X 1. 20:58 Patient left the ED. zb Signatures: Dispatcher [employer] EDMaricruz Cramer RN RN sv Mickail, Joel, PA PA jmm Audra Rodrigez Maria 5 Deanna Ritchie RN RN zb Ramnanan, Tiffany, RN RN tr6 Precious Wilcox RN RN kg Corrections: (The following items were deleted from the chart) 13:14 13:07 Home Meds: lisinopril 20 mg Oral tab; kg kg
--- NOTE | 2020-11-16 20:45 | EDPHYS ---
Physician Documentation [facility] Name: Maryjane Meza Age: 50 yrs Sex: Female : 1970 Arrival Date: 11/16/2020 Time: 12:52 Bed 19 Private MD: ED Physician Selwyn Roberts HPI: 11/16 14:33 This 50 yrs old Female presents to ER via Ambulatory with complaints of Leg jmm Pain, Abdominal Pain. 14:33 The patient presents with swelling. Onset: The symptoms/episode began/occurred jmm gradually, 2 week(s) ago. Modifying factors: The symptoms are alleviated by elevating leg. Associated signs and symptoms: Pertinent positives: swelling, Pertinent negatives fever. This is a 50 year old female with a history of hypothyroidism that presents to the ED with complaints swelling to the extremities bilaterally along with shortness of breath progressively worsening. Patient also complains of mild headache similar to previous headaches that she describes as uncomfortable. . CONFERENCE TRANSLATOR: 13:12 LMP N/A - control method kg Historical: - Allergies: 13:07 NKDA; kg - Home Meds: 13:07 amlodipine 5 mg tab 1 tab once daily [Active]; clopidogrel 75 mg oral tab 1 tab once kg daily [Active]; benzonatate 100 mg oral cap 2 caps 3 times per day [Active]; levothyroxine 100 mcg tab once daily [Active]; 13:12 proair as needed [Active]; kg - PMHx: 13:07 Hypothyroidism; Hypertension; Anemia; kg - PSHx: 13:07 Cholecystectomy; hernia; tubal ligation; IUD; kg - Immunization history:: Adult Immunizations up to date, Client reports receiving the 2nd dose of the Covid vaccine. - Social history:: Smoking status: Patient denies any tobacco usage or history of. ROS: 14:33 Constitutional: Negative for fever, chills, and weight loss, Cardiovascular: Negative jmm for chest pain, palpitations, and edema. 14:33 Respiratory: Positive for shortness of breath. 14:33 MS/extremity: Positive for swelling. 14:33 All other systems are negative. Exam: 14:33 Constitutional: This is a well developed, well nourished patient who is awake, alert, jmm and in no acute distress. Head/Face: atraumatic. Eyes: EOMI, no conjunctival erythema appreciated ENT: Moist Mucus Membranes Neck: Trachea midline, Supple Chest/axilla: Normal chest wall appearance and motion. Cardiovascular: Regular rate and rhythm. No edema appreciated Respiratory: Normal respirations, no respiratory distress appreciated Abdomen/GI: Non distended, soft Back: Normal ROM Skin: General appearance color normal 14:33 Musculoskeletal/extremity: ROM: intact in all extremities, edema noted bilaterally, compartments are soft, dorsalis pulse intact bilaterally, NVI. 14:33 Skin: Appearance: Color: normal in color. 14:33 Neuro: Orientation: is normal, Mentation: is normal, Memory: is normal. 14:33 Psych: Behavior/mood is pleasant, cooperative. Vital Signs: 13:00 BP 148 / 81; Pulse 83; Resp 20; Temp 98.4(O); Pulse Ox 100% on R/A; Weight 131.9 kg kg (R); Height 5 ft. 6 in. (167.64 cm) (R); Pain 8/10; 17:17 BP 168 / 83; Pulse 67; Resp 18; Pulse Ox 100% on R/A; zb 18:00 BP 147 / 82; Pulse 74; Resp 18; Pulse Ox 99% on R/A; zb 19:01 BP 147 / 79; Pulse 66; Resp 16; Pulse Ox 99% on R/A; zb 20:06 BP 144 / 84; Pulse 68; Resp 16; Pulse Ox 99% on R/A; zb 13:00 Body Mass Index 46.94 (131.90 kg, 167.64 cm) kg MDM: 16:33 Patient medically screened. romario 20:42 Data reviewed: vital signs, nurses notes. Counseling: I had a detailed discussion with romario the patient and/or guardian regarding: the historical points, exam findings, and any diagnostic results supporting the discharge/admit diagnosis, lab results, radiology results, the need for outpatient follow up, to return to the emergency department if symptoms worsen or persist or if there are any questions or concerns that arise at home. ED course: Patient is alert and non toxic in appearance in the ED. No signs of resp distress. Advised to discontinue amylodipine and advised to follow up with pcp for reevaluation. Patient understood and agrees with the plan of care. . 11/16 14:34 Order name: Urine Dipstick-Ancillary; Complete Time: 16:52 EDMS 11/16 16:47 Order name: Basic Metabolic Panel [facility] 11/16 16:47 Order name: CBC with Diff; Complete Time: 17:44 [facility] 11/16 16:47 Order name: LFT's; Complete Time: 17:24 [facility] 11/16 16:47 Order name: Magnesium; Complete Time: 17:24 [facility] 11/16 16:47 Order name: NT PRO-BNP; Complete Time: 17:24 [facility] 11/16 16:47 Order name: PT-INR; Complete Time: 17:44 [facility] 11/16 16:47 Order name: Troponin (emerg Dept Use Only); Complete Time: 17:24 [facility] 11/16 16:47 Order name: XRAY Chest (1 view); Complete Time: 18:56 [facility] 11/16 16:47 Order name: D-Dimer; Complete Time: 17:44 [facility] 11/16 16:47 Order name: Basic Metabolic Panel; Complete Time: 17:24 [facility] 11/16 17:22 Order name: US Extremity Venous W Compression Femi; Complete Time: 18:56 [facility] 11/16 14:33 Order name: Urine Dipstick-Ancillary (obtain specimen); Complete Time: 16:45 kg 11/16 16:47 Order name: EKG; Complete Time: 16:48 [facility] 11/16 16:47 Order name: Cardiac monitoring; Complete Time: 17:49 [facility] 11/16 16:47 Order name: EKG - Nurse/Tech; Complete Time: 17:49 [facility] 11/16 16:47 Order name: IV Saline Lock; Complete Time: 16:53 [facility] 11/16 16:47 Order name: Labs collected and sent; Complete Time: 16:53 [facility] 11/16 16:47 Order name: O2 Per Protocol; Complete Time: 16:53 [facility] 11/16 16:47 Order name: O2 Sat Monitoring; Complete Time: 16:53 jmm Administered Medications: 16:53 Drug: Lasix (furosemide) 20 mg Route: IVP; Site: left antecubital; tr6 17:48 Follow up: Response: No adverse reaction; Marked relief of symptoms zb 19:39 Drug: Reglan (metoCLOPramide) 10 mg Route: IVP; Site: left antecubital; zb 20:30 Follow up: Response: No adverse reaction; Marked relief of symptoms; Pain is decreased zb Disposition Summary: 11/16/20 20:44 Discharge Ordered Location: Home [facility] Condition: Stable jmm Diagnosis - Edema, unspecified jmm Followup: [facility] - With: Private Physician - When: 2 - 3 days - Reason: Recheck today's complaints, Continuance of care, Re-evaluation by your physician Discharge Instructions: - Discharge Summary Sheet [facility] - Edema [facility] Forms: - Medication Reconciliation Form [facility] - Thank You Letter [facility] - Antibiotic Education [facility] - Prescription Opioid Use [facility] Prescriptions: - furosemide 20 mg Oral tablet - take 1 tablet by ORAL route once daily; 10 tablet; Refills: 0, Product [facility] Selection Permitted Addendum: 11/18/2020 13:45 Co-signature as Attending Physician, Selwyn Roberts MD I agree with the assessment and k dr plan of care. Signatures: Dispatcher [employer] EDMS Selwyn Roberts MD MD kdr Mickail, Joel, PA PA jmm Brown, Zipporah, RN RN zMadina Maier RN RN tr6 Precious Wilcox RN RN kg Corrections: (The following items were deleted from the chart) 11/16 13:14 13:07 Home Meds: lisinopril 20 mg Oral tab; kg kg
[2020-11-16 21:16] VITALS: TEMP 98.4
[2020-11-16 21:18] VITALS: O2SAT 99
[2020-11-16 21:22] VITALS: BP 144/84
--- NOTE | 2020-11-17 13:46 | EKG ---
Test Date: 2020-11-16 Test Time: 17:42:34 Pie Maker: KATIANA MEASUREMENT RESULTS: Intervals: Rate: 69 FL: 146 QRSD: 82 QT: 402 QTc: 430 [place]: P: 52 FL: 146 QRS: 51 T: 28 INTERPRETIVE STATEMENTS: Normal sinus rhythm Normal ECG Compared to ECG 08/07/2020 15:41:44 No significant changes Electronically Signed On 11-17-20 13:45:34 CDT by Anton Molina
== END 2020-11-16 20:58 | disposition home or self-care (01) ==
LOC: ER 12:48
DX: R60.9 Edema, unspecified (principal); I10 Essential (primary) hypertension; E03.9 Hypothyroidism, unspecified
CPT/HCPCS: 36415; 71045; 80048; 80076; 81003; 83735; 83880; 84484; 85025; 85379; 85610; 93005; 93970; 96374; 96375; 99285; J1940; J2765; J7050

== ENCOUNTER 2020-12-02 02:14 | Emergency (ER) | payer SELFPAY ==
--- OUTSIDE RECORDS SUMMARY | 2020-12-02 02:17 | XMS REPORT | Continuity of Care Document ---
:1970 Author Organization [facility] t Address [address] [place] [address] Dr. Kunz [address] [place] [address] Care Team Providers Name Role Phone Doctor Unassigned, Name Attending Clinician Unavailable Problems This patient has no known problems. Allergies, Adverse Reactions, Alerts This patient has no known allergies or adverse reactions. Medications This patient has no known medications. Procedures This patient has no known procedures. Encounters Start End Encounter Admission Attending Care Care Encounter Source Date/Time Date/Time Type Type Clinicians Facility Department ID 2020-11-11 2020-11-11 Orders Doctor BEATRIZ [id number] 00:00:00 00:00:00 Only UnassignedVANDA [id number] [facility] [id number] Results This patient has no known results.
[2020-12-02 04:13] LABS: Absolute Lymphocytes (CBC) 1.7 K/uL (0.7-4.9); Basophils % 0.5 % (0-1.3); Hematocrit 33.4 % (36.0-45.0); Lymphocytes % 18.9 % (15.3-44.8); MPV 9.4 fL (7.6-11.3); RBC Red Blood Cell Count 4.08 M/uL (3.86-4.86)
[2020-12-02] MEDS ORDERED: NA CHLORIDE 0.9% 1,000 ML ONE (04:25)
[2020-12-02] MEDS ORDERED: MORPHINE 4 MG/ML SYR ONE (04:25)
[2020-12-02] MEDS ORDERED: ONDANSETRON 4 MG/2 ML VIAL ONE (04:25)
[2020-12-02 04:30] LABS: Albumin 3.8 g/dL (3.4-5.0); Bilirubin Direct 0.2 mg/dL (0-0.2); Bilirubin Total 0.8 mg/dL (0.2-1.0); Potassium 3.3 mmol/L (3.5-5.1)
--- NOTE | 2020-12-02 05:12 | ER ---
Nurse's Notes [facility] Name: Maryjane Meza Age: 50 yrs Sex: Female : 1970 Arrival Date: 12/02/2020 Time: 02:24 Bed 6 Private MD: Diagnosis: Abdominal pain. Gastroenteritis Presentation: 12/02 03:19 Chief complaint: Patient states: abdominal pain since yesterday, also reports N/V/D em denies fever. Coronavirus screen: Client denies travel out of the [place] in the last 14 days. Ebola Screen: Patient negative for fever greater than or equal to 101.5 degrees Fahrenheit, and additional compatible Ebola Virus Disease symptoms Patient denies exposure to infectious person. Patient denies travel to an Ebola-affected area in the 21 days before illness onset. No symptoms or risks identified at this time. Initial Sepsis Screen: Does the patient meet any 2 criteria? No. Patient's initial sepsis screen is negative. Does the patient have a suspected source of infection? No. Patient's initial sepsis screen is negative. Risk Assessment: Do you want to hurt yourself or someone else? Patient reports no desire to harm self or others. Onset of symptoms was December 02, 2020. 03:19 Method Of Arrival: Wheelchair em 03:19 Acuity: HECTOR 3 em Historical: - Allergies: 03:20 NKDA; em - Home Meds: 04:10 amlodipine 5 mg tab 1 tab once daily [Active]; benzonatate 100 mg Oral cap 2 caps 3 ak2 times per day [Active]; clopidogrel 75 mg Oral tab 1 tab once daily [Active]; cyanocobalamin (vit B-12) miscellaneous IM every 30 days [Active]; ferrous sulfate 325 mg (65 mg iron) Oral TbEC twice a day [Active]; hydrochlorothiazide 25 mg Oral tab 1 tab once daily [Active]; levothyroxine 100 mcg tab once daily [Active]; proair as needed [Active]; - PMHx: 03:20 Hypothyroidism; Hypertension; Anemia; em - PSHx: 03:20 tubal ligation; Cholecystectomy; hernia; IUD; em - Immunization history:: Adult Immunizations up to date. - Social history:: Smoking status: Patient denies any tobacco usage or history of. Screenin:09 Abuse screen: Denies threats or abuse. Denies injuries from another. Nutritional ak2 screening: No deficits noted. Tuberculosis screening: No symptoms or risk factors identified. Fall Risk None identified. Assessment: 04:09 General: Appears in no apparent distress. Behavior is calm, cooperative. Pain: ak2 Complains of pain in abdomen. Neuro: No deficits noted. Cardiovascular: Reports. Cardiovascular: No deficits noted. GI: Bowel sounds present X 4 quads. Abd is non tender. 04:11 Reassessment: Patient and/or family updated on plan of care and expected duration. Pain ak2 level reassessed. Vital Signs: 03:19 BP 137 / 72; Pulse 67; Resp 16; Temp 97.7; Pulse Ox 100% on R/A; Weight 117.93 kg; em Height 5 ft. 7 in. (170.18 cm); Pain 8/10; 04:10 BP 126 / 70; Pulse 64; Resp 18; Pulse Ox 97% on R/A; ak2 05:28 BP 121 / 63; Pulse 65; Resp 18; Pulse Ox 98% on R/A; ak2 03:19 Body Mass Index 40.72 (117.93 kg, 170.18 cm) em ED Course: 02:24 Patient arrived in ED. ag3 03:20 Triage completed. em 03:20 Arm band placed on. em 03:23 Tunde Napoles MD is Attending Physician. pkl 04:09 Patient has correct armband on for positive identification. ak2 04:09 No provider procedures requiring assistance completed. Inserted saline lock: 20 gauge ak2 in right antecubital area, using aseptic technique. 04:49 CT Abd/Pelvis - IV Contrast Only In Process Unspecified. EDMS Administered Medications: 04:06 Drug: NS 0.9% 1000 ml Route: IV; Rate: 1000 ml; Site: right antecubital; ak2 04:06 Drug: morphine 4 mg Route: IVP; Site: right antecubital; ak2 04:06 Drug: Zofran (Ondansetron) 4 mg Route: IVP; Site: right antecubital; ak2 05:28 Drug: K-Dur (potassium chloride) 20 mEq Route: PO; ak2 05:28 Drug: LoMOTIL (diphenoxylate-atropine) 2 tabs Route: PO; ak2 Outcome: 05:11 Discharge ordered by . pkl 05:29 Discharged to home ambulatory. ak2 05:29 Condition: good 05:29 Discharge instructions given to patient, Prescriptions given X 05:29 Patient left the ED. ak2 Signatures: Dispatcher [employer] Tunde Farah MD MD pkl Munoz, Edgar, RN RN Laura Mendez Anthony ak2
--- NOTE | 2020-12-02 05:12 | EDPHYS ---
Physician Documentation [facility] Name: Maryjane Meza Age: 50 yrs Sex: Female : 1970 Arrival Date: 12/02/2020 Time: 02:24 Bed 6 Private MD: ED Physician Tunde Napoles HPI: 12/02 03:40 This 50 yrs old Female presents to ER via Wheelchair with complaints of pkl Abdominal Pain. 03:40 The patient presents with abdominal pain in the lower abdomen. Onset: The pkl symptoms/episode began/occurred 2 week(s) ago. Associated signs and symptoms: Pertinent positives: diarrhea, nausea. Historical: - Allergies: 03:20 NKDA; em - Home Meds: 04:10 amlodipine 5 mg tab 1 tab once daily [Active]; benzonatate 100 mg Oral cap 2 caps 3 ak2 times per day [Active]; clopidogrel 75 mg Oral tab 1 tab once daily [Active]; cyanocobalamin (vit B-12) miscellaneous IM every 30 days [Active]; ferrous sulfate 325 mg (65 mg iron) Oral TbEC twice a day [Active]; hydrochlorothiazide 25 mg Oral tab 1 tab once daily [Active]; levothyroxine 100 mcg tab once daily [Active]; proair as needed [Active]; - PMHx: 03:20 Hypothyroidism; Hypertension; Anemia; em - PSHx: 03:20 tubal ligation; Cholecystectomy; hernia; IUD; em - Immunization history:: Adult Immunizations up to date. - Social history:: Smoking status: Patient denies any tobacco usage or history of. ROS: 03:40 Eyes: Negative for injury, pain, redness, and discharge, ENT: Negative for injury, pkl pain, and discharge, Neck: Negative for injury, pain, and swelling, Cardiovascular: Negative for chest pain, palpitations, and edema, Respiratory: Negative for shortness of breath, cough, wheezing, and pleuritic chest pain. 03:40 Abdomen/GI: Positive for abdominal pain, nausea, diarrhea, of the right lower quadrant and left lower quadrant. 03:40 Back: Negative for acute changes. 03:40 : Negative for urinary symptoms. 03:40 MS/extremity: Negative for acute changes. 03:40 Skin: Negative for rash. 03:40 Neuro: Negative for altered mental status, loss of consciousness. Exam: 03:40 Head/Face: Normocephalic, atraumatic. Eyes: Pupils equal round and reactive to light, pkl extra-ocular motions intact. Lids and lashes normal. Conjunctiva and sclera are non-icteric and not injected. Cornea within normal limits. Periorbital areas with no swelling, redness, or edema. ENT: Nares patent. No nasal discharge, no septal abnormalities noted. Tympanic membranes are normal and external auditory canals are clear. Oropharynx with no redness, swelling, or masses, exudates, or evidence of obstruction, uvula midline. Mucous membranes moist. Neck: Trachea midline, no thyromegaly or masses palpated, and no cervical lymphadenopathy. Supple, full range of motion without nuchal rigidity, or vertebral point tenderness. No Meningismus. Chest/axilla: Normal chest wall appearance and motion. Nontender with no deformity. No lesions are appreciated. Cardiovascular: Regular rate and rhythm with a normal S1 and S2. No gallops, murmurs, or rubs. Normal PMI, no JVD. No pulse deficits. Respiratory: Lungs have equal breath sounds bilaterally, clear to auscultation and percussion. No rales, rhonchi or wheezes noted. No increased work of breathing, no retractions or nasal flaring. 03:40 Abdomen/GI: Bowel sounds: normal, Palpation: soft, mild abdominal tenderness, in the right lower quadrant and left lower quadrant. 03:40 Back: Exam negative for acute changes. 03:40 : Exam negative for acute changes. 03:40 Musculoskeletal/extremity: Exam is negative for acute changes. 03:40 Skin: Exam negative for rash. 03:40 Neuro: Orientation: is normal, Mentation: is normal, Cranial nerves: grossly normal, Motor: is normal. Vital Signs: 03:19 BP 137 / 72; Pulse 67; Resp 16; Temp 97.7; Pulse Ox 100% on R/A; Weight 117.93 kg; em Height 5 ft. 7 in. (170.18 cm); Pain 8/10; 04:10 BP 126 / 70; Pulse 64; Resp 18; Pulse Ox 97% on R/A; ak2 05:28 BP 121 / 63; Pulse 65; Resp 18; Pulse Ox 98% on R/A; ak2 03:19 Body Mass Index 40.72 (117.93 kg, 170.18 cm) em MDM: 03:24 Patient medically screened. pkl 05:08 Data reviewed: vital signs, nurses notes, lab test result(s), EKG, radiologic studies, pkl CT scan. ED course: Discussed lab, EKG and CT Scan results with patient. Advised to follow up with his PCP in 2 to 3 days. Patient understood instruction. 12/02 03:39 Order name: Basic Metabolic Panel; Complete Time: 04:59 pkl 12/02 03:39 Order name: CBC with Diff; Complete Time: 04:59 pkl 12/02 03:39 Order name: Hepatic Function; Complete Time: 04:59 pkl 12/02 03:39 Order name: Lipase; Complete Time: 04:59 pkl 12/02 03:39 Order name: CT Abd/Pelvis - IV Contrast Only pkl 12/02 03:39 Order name: IV Saline Lock pkl 12/02 03:39 Order name: Labs collected and sent pkl 12/02 03:39 Order name: EKG; Complete Time: 03:39 pkl Administered Medications: 04:06 Drug: NS 0.9% 1000 ml Route: IV; Rate: 1000 ml; Site: right antecubital; ak2 04:06 Drug: morphine 4 mg Route: IVP; Site: right antecubital; ak2 04:06 Drug: Zofran (Ondansetron) 4 mg Route: IVP; Site: right antecubital; ak2 05:28 Drug: K-Dur (potassium chloride) 20 mEq Route: PO; ak2 05:28 Drug: LoMOTIL (diphenoxylate-atropine) 2 tabs Route: PO; ak2 Disposition Summary: 12/02/20 05:11 Discharge Ordered Location: Home pkl Problem: new pkl Symptoms: have improved pkl Condition: Stable pkl Diagnosis - Abdominal pain. Gastroenteritis pkl Followup: pkl - With: Private Physician - When: 2 - 3 days - Reason: Re-evaluation by your physician Discharge Instructions: - Discharge Summary Sheet pkl Forms: - Medication Reconciliation Form pkl - Thank You Letter pkl - Antibiotic Education pkl - Prescription Opioid Use pkl - Work release form em Prescriptions: - Cipro 500 mg Oral Tablet - take 1 tablet by ORAL route every 12 hours for 5 days; 10 tablet; Refills: 0, pkl Product Selection Permitted - Lomotil 2.5-0.025 mg Oral Tablet - take 2 tablets by ORAL route once daily As needed; 10 tablet; Refills: 0, pkl Product Selection Permitted Signatures: DispTunde Langley MD MD pkl Axel Vazquez, RN RN Sam Aiken
[2020-12-02] MEDS ORDERED: POTASSIUM CL SA 10 MEQ TAB PO ONE (05:46)
[2020-12-02] MEDS ORDERED: DIPHENOX/ATROP SULF 1 TAB PO ONE (05:46)
[2020-12-02 05:51] VITALS: TEMP 97.7
[2020-12-02 05:59] VITALS: BP 121/63; O2SAT 98
--- NOTE | 2020-12-02 10:13 | RAD REPORT ---
EXAM DESCRIPTION: CT - Abdomen Pelvis W Contrast - 12/02/2020 6:48 am CLINICAL HISTORY: The patient is 50 years old and is Female; diarrhea;Abd pain TECHNIQUE: Axial computed tomography images of the abdomen and pelvis with intravenous contrast. S agittal and coronal reformatted images were created and reviewed. This CT exam was performed using one or more of the following dose reduction techniques: automated exposure control, adjustment of t he mA and/or kV according to patient size, and/or use of iterative reconstruction technique. COMPARISON: September 18, 2018 CT abdomen pelvis. FINDINGS: Lung bases: Unremarkable. No mass. No consolidation. ABDOMEN: Liver: Hepatomegaly. Gallbladder and bile ducts: Unremarkable. No calcified stones. No ductal dilation. Pancreas: No findings to suggest acute pancreatitis. No mass visualized. No ductal dilation. Spleen: Unremarkable. No splenomegaly. Adrenals: Unremarkable. No mass. Kidneys and ureters: Unremarkable. No solid mass. No hydronephrosis. Stomach and bowel: No bowel dilatation or obstruction. No bowel wall thickening. No findings to suggest colitis or diverticulitis. PELVIS: Appendix: Appendectomy. Bladder: Unremarkable. No mass. Reproductive: Unremarkable as visualized. ABDOMEN and PELVIS: Intraperitoneal space: Unremarkable. No free air. No significant fluid collection. Bones/joints: No acute fracture visualized. Bone island L5. No dislocation. Soft tissues: Ventral abdominal wall hernia containing fat only. No evidence of edema/incarcerat ion. Vasculature: Unremarkable. No abdominal aortic aneurysm. Lymph nodes: No pathologically enlarged lymph nodes. Tubes, lines and devices: Intrauterine contraceptive devices noted. Uterus and ovaries are other moreno unremarkable. IMPRESSION: 1. No acute obstructive or inflammatory process identified. No evidence of enteritis o r colitis. 2. Hepatomegaly. 3. Additional non-emergent findings as above. Electronically signed by: Maricruz Coon MD 12/02/2020 4:57 AM CDT Due to temporary technical issues with the PACS/Fluency reporting system, reports are being signed by the in house radiologist without review as a courtesy to ensure prompt reporting. The interpreting r adiologist is fully responsible for the content of the report.
--- NOTE | 2020-12-03 07:29 | EKG ---
Test Date: 2020-12-02 Test Time: 04:03:13 Fiber Designer: LIZETTE MEASUREMENT RESULTS: Intervals: Rate: 62 DC: 118 QRSD: 78 QT: 434 QTc: 440 [place]: P: 40 DC: 118 QRS: 53 T: 53 INTERPRETIVE STATEMENTS: Normal sinus rhythm Normal ECG Compared to ECG 11/16/2020 17:42:34 No significant changes Electronically Signed On 12-03-20 07:27:56 CDT by Anton Molina
== END 2020-12-02 05:29 | disposition home or self-care (01) ==
LOC: ER 02:14
DX: K52.9 Noninfective gastroenteritis and colitis, unspecified (principal); I10 Essential (primary) hypertension; E03.9 Hypothyroidism, unspecified
CPT/HCPCS: 36415; 74177; 80048; 80076; 83690; 85025; 93005; 96374; 96375; 99284; J2405; J7030; Q9967

== ENCOUNTER 2021-03-26 08:16 | Emergency (ER) | payer OTHER, SELFPAY ==
--- NOTE | 2021-03-26 09:39 | RAD REPORT ---
EXAM DESCRIPTION: CT - [id number] - 03/26/2021 9:19 am CLINICAL HISTORY: Trauma, head and neck injury. PAIN COMPARISON: <Comparisons> TECHNIQUE: Axial 5 mm thick images of the head were obtained. Axial 2 mm thick images of the cervical spine were obtained with sagittal and coronal reconstruction images generated and reviewed. All CT scans are performed using dose optimization technique as appropriate and may include automated exposure control or mA/KV adjustment according to patient size. FINDINGS: CT HEAD WITHOUT CONTRAST: No acute hemorrhage, hydrocephalus or extra-axial collection is identified.No areas of brain edema or midline shift. The paranasal sinuses and mastoids are clear.The calvarium is intact. CT CERVICAL SPINE WITHOUT CONTRAST: No fracture or subluxation.No prevertebral soft tissues swelling is identified. Multinodular goiter. Presumed bone island in T2. IMPRESSION: No acute intracranial or cervical spine findings.
--- NOTE | 2021-03-26 09:40 | RAD REPORT ---
EXAM DESCRIPTION: RAD - Chest Single View - 03/26/2021 9:32 am CLINICAL HISTORY: back pain COMPARISON: Head C Spine Mpr Wo Con dated 02/24/2017Chest Single View dated 11/16/2020; Chest Single V iew dated 08/07/2020; Chest Pa And Lat (2 Views) dated 03/24/2018; Chest Single View dated 11/04/2017 FINDINGS: Lines: None. Lungs: No evidence of edema or pneumonia. Pleural: No significant pleural effusions or pneumothorax. Cardiac: The heart size is within normal limits. Bones: No acute fractures. Other: IMPRESSION: No acute cardiopulmonary disease.
[2021-03-26 09:49] LABS: Urine Blood Trace-intact (Negative); Urine Glucose Negative (Negative); Urine Protein Negative (Negative); Urine Specific Gravity 1.025 (1.005-1.030)
[2021-03-26 09:51] LABS: Absolute Lymphocytes (CBC) 1.8 K/uL (0.7-4.9); Basophils % 0.4 % (0-1.3); Hematocrit 36.3 % (36.0-45.0); Lymphocytes % 23.6 % (15.3-44.8); MPV 9.2 fL (7.6-11.3); RBC Red Blood Cell Count 4.48 M/uL (3.86-4.86)
[2021-03-26 09:55] LABS: Protime INR 1.05
[2021-03-26] MEDS ORDERED: NA CHLORIDE 0.9% 1,000 ML ONE (09:58)
[2021-03-26] MEDS ORDERED: CEFTRIAXONE 1000 MG/VIAL ONE (10:05)
[2021-03-26] MEDS ORDERED: WATER FOR INJ,STERILE 10 ML ONE (10:06)
[2021-03-26 10:17] LABS: ALT/SGPT 28 U/L (12-78); AST/SGOT 17 U/L (15-37); Albumin 3.6 g/dL (3.4-5.0); Alkaline Phosphatase 87 U/L (45-117); BUN Blood Urea Nitrogen 15 mg/dL (7-18); Bicarbonate 26 mmol/L (21-32); Bilirubin Direct 0.1 mg/dL (0-0.2); Bilirubin Total 0.5 mg/dL (0.2-1.0); Glucose Level 127 mg/dL (74-106); Magnesium 1.8 mg/dL (1.8-2.4); NT PRO-BNP 66 pg/mL (<125); Potassium 3.7 mmol/L (3.5-5.1); Protein, Total 8.1 g/dL (6.4-8.2); Sodium Level 139 mmol/L (136-145); Troponin (Emerg Dept Use Only) < 0.02 ng/mL (0.0-0.045)
[2021-03-26] MEDS ORDERED: KETOROLAC 30 MG/ML INJ ONE (10:52)
--- NOTE | 2021-03-26 11:13 | ER ---
Nurse's Notes [facility] Name: Maryjane Meza Age: 50 yrs Sex: Female : 1970 Arrival Date: 03/26/2021 Time: 08:23 Bed 16 Private MD: Diagnosis: Acute cystitis Presentation: 03/26 08:27 Chief complaint: Patient states: On Wednesday afternoon, 03/24/21, pt fell at work. States vg1 slipped and fell onto Right knee and tried to get up and fell back and hit head. States about two hours later head began to hurt, became dizzy and vomited. States nausea and vomiting and Right eye is blurry. Denies LOC. Coronavirus screen: Vaccine status: Patient reports receiving the 2nd dose of the covid vaccine. Client denies travel out of the [place] in the last 14 days. Ebola Screen: Patient negative for fever greater than or equal to 101.5 degrees Fahrenheit, and additional compatible Ebola Virus Disease symptoms. Initial Sepsis Screen: Does the patient meet any 2 criteria? No. Patient's initial sepsis screen is negative. Does the patient have a suspected source of infection? No. Patient's initial sepsis screen is negative. Risk Assessment: Do you want to hurt yourself or someone else? Patient reports no desire to harm self or others. Onset of symptoms was March 24, 2021. 08:27 Method Of Arrival: Ambulatory vg1 08:27 Acuity: HECTOR 3 vg1 09:00 Care prior to arrival: None. Mechanism of Injury: Fall from standing position. Trauma jt3 event details: Injury occurred: March 24, 2021. Triage Assessment: 08:35 General: Appears in no apparent distress. uncomfortable, Behavior is calm, cooperative. vg1 Pain: Complains of pain in head, neck and back. Historical: - Allergies: 08:35 NKDA; vg1 - Home Meds: 08:35 amlodipine 5 mg tab 1 tab once daily [Active]; benzonatate 100 mg Oral cap 2 caps 3 vg1 times per day [Active]; clopidogrel 75 mg Oral tab 1 tab once daily [Active]; cyanocobalamin (vit B-12) miscellaneous IM every 30 days [Active]; proair as needed [Active]; levothyroxine 100 mcg tab once daily [Active]; hydrochlorothiazide 25 mg Oral tab 1 tab once daily [Active]; ferrous sulfate 325 mg (65 mg iron) Oral TbEC twice a day [Active]; - PMHx: 08:35 Anemia; Hypertension; Hypothyroidism; vg1 - PSHx: 08:35 Cholecystectomy; hernia; IUD; tubal ligation; vg1 - Immunization history:: Client reports receiving the 2nd dose of the Covid vaccine. - Social history:: Smoking status: Patient denies any tobacco usage or history of. Patient/guardian denies using alcohol, street drugs, The patient lives with family. - Immunization history: Last tetanus immunization: unknown. - Family history:: not pertinent. Screenin:00 Abuse screen: Denies threats or abuse. Denies injuries from another. Tuberculosis jt3 screening: No symptoms or risk factors identified. Primary Survey: 09:00 NO uncontrolled hemorrhage observed. A: Airway: patent. Breathing/Chest: Respiratory jt3 pattern: regular, Respiratory effort: spontaneous. Circulation: Cardiac rhythm: sinus rhythm. Disability Alert. Exposure/Environment: A warming method has been applied: A warm blanket has been provided to the patient. Reassessment Airway Airway Patent Breathing/Chest Respiratory pattern Regular Respiratory effort Spontaneous Circulation Temperature Warm Disability Alert. Assessment: 09:00 Neuro: Level of Consciousness is awake, alert, obeys commands, Oriented to person, jt3 place, time, situation, Edi Consultant are equal bilaterally Moves all extremities. Full function Speech is normal, Facial symmetry appears normal, Pupils are PERRLA, Intact. Neuro: Reports headache in entire. Cardiovascular: Reports chest pain, Pt. reported chest pain on Wednesday before fall. However, pt. is not having chest pain at this time. Respiratory: No deficits noted. Vital Signs: 08:27 BP 151 / 89; Pulse 82; Resp 16; Temp 97.6; Pulse Ox 100% ; Weight 117.93 kg; Height 5 vg1 ft. 7 in. (170.18 cm); Pain 8/10; 11:42 BP 158 / 73; Pulse 64; Resp 15; Pulse Ox 98% on R/A; jt3 08:27 Body Mass Index 40.72 (117.93 kg, 170.18 cm) vg1 [place] Coma Score: 09:00 Eye Response: spontaneous(4). Verbal Response: oriented(5). Motor Response: obeys jt3 commands(6). Total: 15. Trauma Score (Adult): 09:00 Eye Response: spontaneous(1); Verbal Response: oriented(1); Motor Response: obeys jt3 commands(2); Systolic BP: > 89 mm Hg(4); Respiratory Rate: 10 to 29 per min(4); Mable Score: 15; Trauma Score: 12 ED Course: 08:23 Patient arrived in ED. mr 08:24 Maribell Lugo MD is Attending Physician. ma2 08:35 Triage completed. vg1 08:35 Arm band placed on. vg1 08:37 Leo Younger RN is Primary Nurse. jt3 09:00 Patient has correct armband on for positive identification. Placed in gown. Bed in low jt3 position. Side rails up X2. 09:00 Patient maintains SpO2 saturation greater than 95% on room air. jt3 09:18 CT Head C Spine In Process Unspecified. EDMS 09:32 XRAY Chest (1 view) In Process Unspecified. EDMS 11:42 IV discontinued, intact, bleeding controlled, No redness/swelling at site. Pressure jt3 dressing applied. Administered Medications: 10:12 Drug: Rocephin (cefTRIAXone) 1 grams Route: IV; Rate: calculated rate; Site: right jt3 antecubital; 11:43 Follow up: Response: No adverse reaction jt3 10:13 Drug: NS 0.9% 1000 ml Route: IV; Rate: 1 bolus; Site: right antecubital; jt3 11:44 Follow up: Response: No adverse reaction; IV Intake: 1000ml jt3 11:00 Drug: Ketorolac 30 mg Route: IVP; Site: right antecubital; jt3 11:43 Follow up: Response: No adverse reaction; Pain is decreased jt3 Intake: 09:00 PO: 0ml; IV: 0ml; Tubes: 0ml (); Total: 0ml. jt3 11:44 IV: 1000ml; Total: 1000ml. jt3 Output: 09:00 Urine: 0ml; Total: 0ml. jt3 Outcome: 11:12 Discharge ordered by . ma2 11:42 Discharged to home ambulatory. jt3 11:42 Condition: stable 11:42 Discharge instructions given to patient, Instructed on discharge instructions, medication usage, Demonstrated understanding of instructions, medications, In person chlorine cell tender used to help explaining discharge instructions. 11:55 Patient left the ED. jt3 Signatures: Dispatcher [employer] MICHAEL Audra Rodrigez Maribell Zamudio MD MD ma2 Wendie Flores RN RN vg1 Leo Younger RN RN jt3 Corrections: (The following items were deleted from the chart) 11:55 11:42 BP 167 / 63; Pulse 64bpm; Resp 17bpm; Pulse Ox 99% RA; Temp 98.2F; jt3 jt3
--- NOTE | 2021-03-26 11:13 | EDPHYS ---
Physician Documentation [facility] Name: Maryjane Meza Age: 50 yrs Sex: Female : 1970 Arrival Date: 03/26/2021 Time: 08:23 Bed 16 Private MD: ED Physician Maribell Lugo HPI: 03/26 09:27 This 50 yrs old Female presents to ER via Ambulatory with complaints of Fall ma2 Injury, Headache. 09:27 This 50 yrs old Female presents to ER via Ambulatory with complaints of Fall ma2 Injury, Headache. 09:27 Details of fall: The patient fell from a supine position. Onset: The symptoms/episode ma2 began/occurred suddenly, 2 day(s) ago. Severity of symptoms: At their worst the symptoms were moderate, in the emergency department the symptoms have resolved. The patient has not experienced similar symptoms in the past. Patient had a mechanical fall at work 2 days ago, she states she had her head, here with mild headache that has improved.. Historical: - Allergies: 08:35 NKDA; vg1 - Home Meds: 08:35 amlodipine 5 mg tab 1 tab once daily [Active]; benzonatate 100 mg Oral cap 2 caps 3 vg1 times per day [Active]; clopidogrel 75 mg Oral tab 1 tab once daily [Active]; cyanocobalamin (vit B-12) miscellaneous IM every 30 days [Active]; proair as needed [Active]; levothyroxine 100 mcg tab once daily [Active]; hydrochlorothiazide 25 mg Oral tab 1 tab once daily [Active]; ferrous sulfate 325 mg (65 mg iron) Oral TbEC twice a day [Active]; - PMHx: 08:35 Anemia; Hypertension; Hypothyroidism; vg1 - PSHx: 08:35 Cholecystectomy; hernia; IUD; tubal ligation; vg1 - Immunization history:: Client reports receiving the 2nd dose of the Covid vaccine. - Social history:: Smoking status: Patient denies any tobacco usage or history of. Patient/guardian denies using alcohol, street drugs, The patient lives with family. - Immunization history: Last tetanus immunization: unknown. - Family history:: not pertinent. ROS: 09:27 Constitutional: Negative for fever, chills, and weight loss. ma2 09:27 All other systems are negative. Exam: 09:27 Constitutional: This is a well developed, well nourished patient who is awake, alert, ma2 and in no acute distress. Head/Face: Normocephalic, atraumatic. Eyes: Pupils equal round and reactive to light, extra-ocular motions intact. Lids and lashes normal. Conjunctiva and sclera are non-icteric and not injected. Cornea within normal limits. Periorbital areas with no swelling, redness, or edema. ENT: Nares patent. No nasal discharge, no septal abnormalities noted. Tympanic membranes are normal and external auditory canals are clear. Oropharynx with no redness, swelling, or masses, exudates, or evidence of obstruction, uvula midline. Mucous membranes moist. Neck: Trachea midline, no thyromegaly or masses palpated, and no cervical lymphadenopathy. Supple, full range of motion without nuchal rigidity, or vertebral point tenderness. No Meningismus. Chest/axilla: Normal chest wall appearance and motion. Nontender with no deformity. No lesions are appreciated. Cardiovascular: Regular rate and rhythm with a normal S1 and S2. No gallops, murmurs, or rubs. Normal PMI, no JVD. No pulse deficits. Respiratory: Lungs have equal breath sounds bilaterally, clear to auscultation and percussion. No rales, rhonchi or wheezes noted. No increased work of breathing, no retractions or nasal flaring. Abdomen/GI: Soft, non-tender, with normal bowel sounds. No distension or tympany. No guarding or rebound. No evidence of tenderness throughout. Back: No spinal tenderness. No costovertebral tenderness. Full range of motion. Skin: Warm, dry with normal turgor. Normal color with no rashes, no lesions, and no evidence of cellulitis. MS/ Extremity: Pulses equal, no cyanosis. Neurovascular intact. Full, normal range of motion. Neuro: Awake and alert, GCS 15, oriented to person, place, time, and situation. Cranial nerves II-XII grossly intact. Motor strength 5/5 in all extremities. Sensory grossly intact. Cerebellar exam normal. Normal gait. Vital Signs: 08:27 BP 151 / 89; Pulse 82; Resp 16; Temp 97.6; Pulse Ox 100% ; Weight 117.93 kg; Height 5 vg1 ft. 7 in. (170.18 cm); Pain 8/; 11:42 BP 158 / 73; Pulse 64; Resp 15; Pulse Ox 98% on R/A; jt3 08:27 Body Mass Index 40.72 (117.93 kg, 170.18 cm) vg1 Mable Coma Score: 09:00 Eye Response: spontaneous(4). Verbal Response: oriented(5). Motor Response: obeys jt3 commands(6). Total: 15. Trauma Score (Adult): 09:00 Eye Response: spontaneous(1); Verbal Response: oriented(1); Motor Response: obeys jt3 commands(2); Systolic BP: > 89 mm Hg(4); Respiratory Rate: 10 to 29 per min(4); Mable Score: 15; Trauma Score: 12 MDM: 08:45 Patient medically screened. [facility] 09:27 Differential diagnosis: sprain, strain. [facility] 11:11 Data reviewed: vital signs, nurses notes. Counseling: I had a detailed discussion with [facility] the patient and/or guardian regarding: the historical points, exam findings, and any diagnostic results supporting the discharge/admit diagnosis, the presence of at least one elevated blood pressure reading (>120/80) during this emergency department visit, the need for outpatient follow up. Response to treatment: the patient's symptoms have markedly improved after treatment. 03/26 09:18 Order name: Basic Metabolic Panel [facility] 03/26 09:18 Order name: CBC with Diff; Complete Time: 09:56 ma2 03/26 09:18 Order name: LFT's; Complete Time: 10:41 ma2 03/26 09:18 Order name: Magnesium; Complete Time: 10:41 ma2 03/26 09:18 Order name: NT PRO-BNP; Complete Time: 10:41 ma2 03/26 09:18 Order name: PT-INR; Complete Time: 09:56 ma2 03/26 08:57 Order name: CT Head C Spine; Complete Time: 09:56 ma2 03/26 09:18 Order name: Troponin (emerg Dept Use Only); Complete Time: 10:41 ma2 03/26 09:18 Order name: XRAY Chest (1 view); Complete Time: 09:56 ma2 03/26 09:19 Order name: Basic Metabolic Panel; Complete Time: 10:41 ED[facility] 03/26 09:49 Order name: Urine Dipstick-Ancillary; Complete Time: 09:56 [facility] 03/26 09:18 Order name: EKG; Complete Time: 09:19 [facility] 03/26 09:18 Order name: Cardiac monitoring; Complete Time: 09:40 [facility] 03/26 09:18 Order name: EKG - Nurse/Tech; Complete Time: 10:00 [facility] 03/26 09:18 Order name: IV Saline Lock; Complete Time: :40 la2 03/26 09:18 Order name: Labs collected and sent; Complete Time: :40 la2 03/26 09:18 Order name: O2 Per Protocol; Complete Time: :40 [facility] 03/26 09:18 Order name: O2 Sat Monitoring; Complete Time: :40 [facility] 03/26 09:18 Order name: Urine Dipstick-Ancillary (obtain specimen); Complete Time: 10:00 [facility] Administered Medications: 10:12 Drug: Rocephin (cefTRIAXone) 1 grams Route: IV; Rate: calculated rate; Site: right jt3 antecubital; 11:43 Follow up: Response: No adverse reaction jt3 10:13 Drug: NS 0.9% 1000 ml Route: IV; Rate: 1 bolus; Site: right antecubital; jt3 11:44 Follow up: Response: No adverse reaction; IV Intake: 1000ml jt3 11:00 Drug: Ketorolac 30 mg Route: IVP; Site: right antecubital; jt3 11:43 Follow up: Response: No adverse reaction; Pain is decreased jt3 Disposition Summary: 03/26/21 11:12 Discharge Ordered Location: Home ma2 Condition: Stable ma2 Diagnosis - Acute cystitis ma2 Followup: ma2 - With: Private Physician - When: Tomorrow - Reason: Continuance of care Discharge Instructions: - Discharge Summary Sheet ma2 - Urinary Tract Infection, Adult, [id number] ma2 Forms: - Medication Reconciliation Form ma2 - Thank You Letter ma2 - Antibiotic Education ma2 - Prescription Opioid Use ma2 - Work release form jt3 Prescriptions: - Bactrim DS 800-160 mg Oral Tablet - take 1 tablet by ORAL route every 12 hours for 5 days; 10 tablet; Refills: 0, ma2 Product Selection Permitted - Diclofenac Sodium 75 mg Oral Tablet Sustained Release - take 1 tablet by ORAL route 2 times per day; 30 tablet; Refills: 0, Product ma2 Selection Permitted Signatures: Dispatcher [employer] Maribell Barrios MD MD ma2 Wendie Flores RN RN vg1 Leo Younger RN RN jt3
[2021-03-26 12:41] VITALS: TEMP 97.6
[2021-03-26 12:43] VITALS: BP 158/73; O2SAT 98
--- NOTE | 2021-03-28 20:45 | EKG ---
Test Date: 2021-03-26 Test Time: 09:55:08 Cis Coordinator: WHIT MEASUREMENT RESULTS: Intervals: Rate: 70 MS: 142 QRSD: 80 QT: 384 QTc: 414 [place]: P: 47 MS: 142 QRS: 46 T: 33 INTERPRETIVE STATEMENTS: Normal sinus rhythm Normal ECG Compared to ECG 12/02/2020 04:03:13 No significant changes Electronically Signed On 03-28-21 20:35:56 PHOTOGRAPHER APPRENTICE LITHOGRAPHIC by Anton Molina
--- OUTSIDE RECORDS SUMMARY | 2021-03-29 18:56 | XMS REPORT | Continuity of Care Document ---
:[address] [facility] t Address [address] [place] [address] Care Team Providers Name Role Phone Doctor Unassigned, Name Attending Clinician Unavailable Payers Payer Name Policy Type Policy Number Effective Date Expiration Date S ource Problems Condition Condition Condition Status Onset Resolution Last Treating Co mments Source Name Details Category Date Date Treatment Clinician Date Hypothyroi Hypothyroi Disease Active U nivers dism, dism, 02-11 ity [place] 00 Medical hypothyroi hypothyroi Br anch dism type dism type Iron Iron Disease Active [facility] deficiency deficiency 02-11 it y of anemia due [place] to chronic to chronic 00 Me dical blood loss blood loss Br anch Fibroids, Fibroids, Disease Active Uni vers submucosal submucosal 02-11 it y of 00:00: [place] 00 Medical Branch Contracept Contracept Disease Active U nicole oleg oleg 7 ity of management [place] Hypothyroi Hypothyroi Disease Active Overview : [facility] dism dism 01-19 Formattin ity of 00:00: g of this [place] 00 note Medical might be Branch different from the original. 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 Medical records received. [facility]- 06/30/2012 . Impressio n: small uterine fibroids. Small left ovarian/p arovarian cyst. A very small fibroid is seen in the anterior mural location left side fundal region of the uterus. A slightly larger more posterior ly located fundal myometria l fibroid is present measuring 17mm[facility] from [facility] t 5-3-16- multiple fibroids, submucosa l fibroid see scanned records History of History of Disease Active U nivers tubal tubal 4-24 ity of ligation ligation 00:00: [place] 00 Medical Branch Asymptomat Asymptomat Disease Active U nivers ic ic 4-24 ity of varicose varicose 00:00: [place] veins veins 00 Medical Branch Morbid Morbid Disease Active Univers obesity obesity 4-24 ity of 00:00: [place] 00 Medical Branch Excessive Excessive Disease Active Uni vers or or 4-24 ity of frequent frequent 00:00: [place] menstruati menstruati 00 Me dical on on Branch Essential Essential Disease Active Overview: Univers hypertensi hypertensi 4-24 Formattin ity of on on 00:00: g of this [place] 00 note Medical might be Branch different from the original. 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 Social History Social Habit Start Date Stop Date Quantity Comments Source Tobacco use and 2018-04-14 2018-04-14 Never used Universit y of exposure 00:00:00 00:00:00 [facility] [place] [facility] Alcohol intake 2018-04-14 2018-04-14 Current University 00:00:00 00:00:00 non-drinker of [facility] alcohol Branch (finding) Sex Ass[birth year] At [birth year] Universit y of 00:00:00 00:00:00 [facility] [place] [facility] Smoking Status Start Date Stop Date Source Never smoker [facility] Medications Ordered Filled Start Stop Current Ordering Indication Dosage Frequency Signature Comments Components Source Medication Medication Date Date Medication? Clinician (SIG) Name Name lisinopril 2017-05 Yes 10mg Take 10 mg U nivers 10 mg 06-14 by mouth ity of tablet 16:59: daily. [address] HYDROCHLORO 2017-05 Yes Take by Un curtis THIAZIDE 06-14 mouth. ity of ORAL 16:59: [address] lisinopril 2017-05 Yes 10mg Take 10 mg U nivers 10 mg 1-29 by mouth ity of tablet 16:59: daily. [address] HYDROCHLORO 2017-05 Yes Take by Un curtis THIAZIDE 1-29 mouth. ity of ORAL 16:59: [address] Levothyroxi 2014-05 Yes [id number] 1{tbl} Take 1 Tab Univers ne 0-19 by mouth ity of (TIROSINT) 00:00: daily. [place] 50 mcg Cap [facility] Levothyroxi 2014-05 Yes [id number] 1{tbl} Take 1 Tab Univers ne 0-19 by mouth ity of (TIROSINT) 00:00: daily. [place] 50 mcg Cap [address] [place] [address] Immunizations Ordered Filled Immunization Date Status Comments Sour e Immunization Name Name Td 2009-09-07 Completed [facility] 00:00:00 [facility] [place] [facility] Td 2009-09-07 Completed [facility] 00:00:00 [facility] [place] [facility] Procedures Procedure Date / Time Performed Performing Clinician Sourc e REFERRAL- 2020-12-18 05:01:00 Doctor Unassigned, No [facility] [place] REQUEST/RESPONSE Name Medical Branch REFERRAL- 2020-11-11 05:01:00 Doctor Unassigned, No [facility] [place] REQUEST/RESPONSE Name [facility] Encounters Start End Encounter Admission Attending Care Care Encounter Source Date/Time Date/Time Type Type Clinicians Facility Department ID 2020-12-18 2020-12-18 Orders Doctor BEATRIZ [id number] Univers 00:00:00 00:00:00 Only Unassigned, VANDA [id number] ity of [place] [facility] [id number] Johnnie as [phone] [address] 2020-11-11 2020-11-11 Orders Doctor BEATRIZ [id number] Univers 00:00:00 00:00:00 Only Unassigned, VANDA [id number] ity of [place] [facility] [id number] Johnnie as [id number] [address] 2020-11-11 2020-11-11 Orders Doctor BEATRIZ [id number] 00:00:00 00:00:00 Only Unassigned, VANDA [id number] [place] [facility] [id number] Results This patient has no known results.
== END 2021-03-26 11:55 | disposition home or self-care (01) ==
LOC: ER 08:16
DX: N30.00 Acute cystitis without hematuria (principal); I10 Essential (primary) hypertension; E03.9 Hypothyroidism, unspecified; D64.9 Anemia, unspecified; Z79.899 Other long term (current) drug therapy; Z90.49 Acquired absence of other specified parts of digestive tract
CPT/HCPCS: 93005; 85025; 80048; 36415; 83735; 85610; 80076; 81003; 84484; 83880; 70450; 72125; 71045; 96375; 96374; 99284; J7030

== ENCOUNTER 2022-05-25 15:51 | Inpatient (IN) | payer SELFPAY ==
--- OUTSIDE RECORDS SUMMARY | 2022-05-25 15:54 | XMS REPORT | Continuity of Care Document ---
:1970 Author Organization [facility] t Address [address] [address] Care Team Providers Name Role Phone OLEG CRANE Primary Care Physician Unavailable Subha ALVARADO Attending Clinician Unavailable Subha Oneal Attending Clinician Doctor Unassigned, [place] Attending Clinician Unavailable Subha ALVARADO Admitting Clinician Unavailable Payers Payer Name Policy Type Policy Number Effective Date Expiration Date S lizet MEDICAID ALIEN PENDING 2021 PENDING 00:00:00 Problems Condition Condition Condition Status Onset Resolution [...] Contracept Disease Active U nicole oleg oleg 12-10 [place]y of [place] Hypothyroi Hypothyroi Disease Active Overview : Univers dism dism 01-19 Formattin ity of 00:00: g of this [place] 00 note Medical might be Branch different from the original. ICD10 Diagnosis Term [address] Judge Utility Intramural Intramural Disease Active Overview : Univers leiomyoma leiomyoma 4-24 Formattin i ty of of uterus of uterus 00:00: g of this [place] 00 note Medical might be Branch different from the original. Medical records received. [facility]- 06/30/2012 . Impressio n: small uterine fibroids. Small left ovarian/p arovarian cyst. A very small fibroid is seen in the anterior mural location left side fundal region of the uterus. A slightly larger more posterior ly located fundal myometria l fibroid is present measuring 17mm.[facility] records from [facility] 09-17-15- multiple fibroids, submucosa l fibroid see scanned records History of History of Disease Active U nivers tubal tubal 4-24 ity of ligation ligation 00:00: [place] [address] Medical Branch Asymptomat Asymptomat Disease Active U nivers ic ic 4-24 ity of varicose varicose 00:00: [place] veins veins Medical Branch Morbid Morbid Disease Active Univers obesity obesity 4-24 ity of 00:00: [place] [address] Medical Branch Excessive Excessive Disease Active Uni vers or or 4-24 ity of frequent frequent 00:00: [place] menstruati menstruati 00 Me dical on on Branch Essential Essential Disease Active Overview: Univers hypertensi hypertensi 4-24 Formattin ity of on on 00:00: g of this 00 note Medical might be Branch different from the original. ICD10 Diagnosis Term [address] Judge Utility Allergies, Adverse Reactions, Alerts Allergy Allergy Status Severity Reaction(s) Onset Inactive Treating Comm ents Source Name Type Date Date Clinician NO KNOWN Drug Active Univers ALLERGIE Class ity of S [facility] Social History Social Habit Start Date Stop Date Quantity Comments Source Exposure to Not sure [facility] SARS-CoV-2 [facility] (event) Branch Tobacco use and 2018-04-14 2018-04-14 Never used Universit y of exposure 00:00:00 00:00:00 [facility] Alcohol intake 2018-04-14 2018-04-14 Current University of 00:00:00 00:00:00 non-drinker of [facility] alcohol Branch (finding) Sex Assigned At [birth year] Universit y of 00:00:00 00:00:00 [facility] Smoking Status Start Date Stop Date Source Never smoker [facility] Medications Ordered Filled Start Stop Current Ordering Indication Dosage Frequency Signature Comments Components Source Medication Medication Date Date Medication? Clinician (SIG) Name Name HYDROcodone 2021- No 1{tbl} 1 tablet, Univers -acetaminop 06-09 Oral, ity of hen (NORCO 23:15: 22:15 ONCE, 1 Johnnie as 5) 5-325 mg 00 :00 dose, On Medi stefan tablet Wed Branch tablet 06/09/21 at 1715, FAVIO ketorolac 15mg 15 mg, Unive rs (TORADOL) 06-09 Slow IV ity of injection 23:15: 22:16 Push, [place] 15 mg 00 :00 ONCE, 1 Medical dose, On Branch 06/09/21 at 1715, Routine
prepared foods production team member approving Restricted medication : Subha ALVARADO naproxen Yes [id number] 500mg Take 1 U nivers (NAPROSYN) 06-09 tablet by ity of 500 mg 00:00: mouth 2 [place] tablet 00 (two) Medical times Branch daily with meals. lisinopril 2017-05 Yes 10mg Take 10 mg U nivers 10 mg 1-29 by mouth ity of tablet 16:59: daily. [address] HYDROCHLORO 2017-05 Yes Take by Uni vers THIAZIDE 1-29 mouth. ity of ORAL 16:59: [address] lisinopril 2017-05 Yes 10mg Take 10 mg U nivers 10 mg 1-29 by mouth ity of tablet 16:59: daily. [address] HYDROCHLORO 2017-05 Yes Take by Uni vers THIAZIDE 1-29 mouth. ity of ORAL 16:59: [address] lisinopril 2017-05 Yes 10mg Take 10 mg U nivers 10 mg 1-29 by mouth ity of tablet 10:59: daily. [address] HYDROCHLORO 2017-05 Yes Take by Uni vers THIAZIDE 1-29 mouth. ity of ORAL 10:59: [address] lisinopril 2017-05 Yes 10mg Take 10 mg U nivers 10 mg 1-29 by mouth ity of tablet 10:59: daily. [address] HYDROCHLORO 2017-05 Yes Take by Uni vers THIAZIDE 1-29 mouth. ity of ORAL 10:59: [place] 14 [facility] Levothyroxi 2014-05 Yes [id number] 1{tbl} Take 1 Tab Univers ne 0-19 by mouth ity of (TIROSINT) 00:00: daily. [place] 50 mcg Cap 00 [facility] Branch Levothyroxi 2014-05 Yes [id number] 1{tbl} Take 1 Tab Univers ne 0-19 by mouth ity of (TIROSINT) 00:00: daily. [place] 50 mcg Cap 00 Medical Branch Levothyroxi 2014-05 Yes [id number] 1{tbl} Take 1 Tab Univers ne 0-19 by mouth ity of (TIROSINT) 00:00: daily. [place] 50 mcg Cap 00 [facility] Levothyroxi 2014-05 Yes [id number] 1{tbl} Take 1 Tab Univers ne 0-19 by mouth ity of (TIROSINT) 00:00: daily. [place] 50 mcg Cap 00 [facility] Immunizations Ordered Filled Immunization Date Status Comments [facility] e Immunization Name Name Td 2009-09-07 Completed University 00:00:00 [facility] Td 2009-09-07 Completed University 00:00:00 [facility] Td 2009-09-07 Completed University 00:00:00 [facility] Td 2009-09-[address] [facility] 00:00:00 [facility] Vital Signs Vital Name Observation Time Observation Value Comments Source Systolic blood 2021-06-09 23:00:00 119 mm[Hg] Univer sity of pressure [facility] Diastolic blood 2021-06-09 23:00:00 71 mm[Hg] Unive rsity of pressure [facility] Heart rate 2021-06-09 23:00:00 60 /min [facility] Respiratory rate 2021-06-09 23:00:00 14 /min [facility] Oxygen saturation in 2021-06-09 23:00:00 100 /min [facility] Arterial blood by [facility] Pulse oximetry [place] Body temperature 2021-06-09 20:44:00 36.22 [facility] height 2021-06-09 20:44:00 170.2 cm [facility] Body weight 2021-06-09 20:44:00 122.471 kg [facility] BMI 2021-06-09 20:44:00 42.29 kg/m2 [facility] Procedures Procedure Date / Time Performed Performing Clinician Sourc e XR CHEST 1 VW 2021-06-09 21:13:09 Subha Alvarado [facility] MAGNESIUM 2021-06-09 21:07:00 Subha Alvarado Tasneem [facility] TROPONIN I 2021-06-09 21:07:00 Subha Alvarado [facility] COMP. METABOLIC PANEL 2021-06-09 21:07:00 Subha Alvarado [facility] ([id number]) [facility] CBC WITH DIFF 2021-06-09 21:07:00 Subha Alvarado Tasneem [facility] URINALYSIS 2021-06-09 21:07:00 Subha Alvarado Tasneem [facility] N-TERMINAL PRO-BNP 2021-06-09 21:07:00 Subha Alvarado [facility] COVID-19 (ID NOW RAPID 2021-06-09 21:07:00 Subha Alvarado [facility] TESTING) Medical Branch NOTICE OF PRIVACY 2021-06-09 20:35:37 Doctor Unassigned, No Univ [facility] PRACTICES Name Medical Branch CONSENT/REFUSAL FOR 2021-06-09 20:35:10 Doctor Unassigned, No [facility] AND Name Medical Branch TREATMENT REFERRAL- 2020-12-18 05:01:00 Doctor Unassigned, No [facility] [place] REQUEST/RESPONSE Name Medical Branch REFERRAL- 2020-11-11 05:01:00 Doctor Unassigned, No [facility] REQUEST/RESPONSE Name Medical Branch Encounters Start End Encounter Admission Attending Care Care Encounter Source Date/Time Date/Time Type Type Clinicians Facility Department ID 2022-05-22 2022-05-22 Outpatient [facility] [id number] [place] 14:48:08 14:48:08 0106 F Paul 2022-05-21 2022-05-21 Outpatient [facility] [id number] [place] 15:07:23 15:07:23 0105 Paul 2022-04-25 2022-04-25 Outpatient [facility] [id number] [place] 10:50:43 10:50:43 1210 F Paul 2022-04-24 2022-04-24 Outpatient [facility] [id number] [place] 16:44:16 16:44:16 1209 F Paul 2021-06-09 2021-06-09 Emergency X Subha ALVARADO [facility] ERT [id number] Univers 14:48:00 17:18:00 ity of [facility] 2021-06-09 2021-06-09 Emergency Subha Alvarado [facility] [id number] Univers 14:48:00 17:18:00 Tasneem HUA 350.1.13.10 i ty of [place] 4.2.7.2.686 [place] [facility] [phone] [place] [id number] Branch 2021-06-09 2021-06-09 Orders Doctor HENDERSON [id number] Univers 00:00:00 00:00:00 Only Unassigned, VANDA 350.1.13.10 ity of [place] [facility] 4.2.7.2.686 Johnnie as [phone] [place] [address] Branch 2020-12-18 2020-12-18 Orders Doctor BEATRIZ [id number] Univers 00:00:00 00:00:00 Only Unassigned, VANDA 350.1.13.10 ity of [place] [facility] 4.2.7.2.686 Johnnie as [phone] [facility] 009 Branch 2020-11-11 2020-11-11 Orders Doctor HENDERSON [id number] Univers 00:00:00 00:00:00 Only Unassigned, VANDA 350.1.13.10 ity of [place] [facility] 4.2.7.2.686 Johnnie as [phone] [place] [address] Branch 2020-11-11 2020-11-11 Orders Doctor BEATRIZ [id number] 00:00:00 00:00:00 Only Unassigned, VAN[place] 350.1.13.10 [place] [facility] [phone] Results Test Description Test Time Test Comments Results Result Comments Source TSH, THIRD GENERATION 2022-05-23 06:59:00 Test Item Value Reference Range Interpretation Comme nts TSH, THIRD GENERATION (test code = 2821) 1.650 UIU/ML 0.400-4.100 FREE T4 (THYROXINE)2022-05-23 06:59:00 Test Item Value Reference Range Interpretation Comments FREE T4 (THYROXINE) (test code = 1.33 NG/DL 0.80-1.90 2822) [id number] 06:40:13 Test Item Value Reference Range Interpretation Comments NT-proBNP <50 PG/ML SEE BELOW If NT-ProBNP i s less than 300 (test code = PG/ML, heart fa ilure is unlikely 43564) for allages. Age............ .....Heart Failure Likely <50 Years.......... .>=450 PG/ML 50-75 Years.... .....>=900 PG/ML > 75 Years..... .....>=1800 PG/ML Methodology: Ro Yozons Graham Electrochemilum inescense Immunoassay UNL ESS OTHERWISE INDICATED, ALL TESTING PERFORMED [facility], [facility]. [address] [place] [address] 4 CHECK PROCESSING CLERK: Stephanie COLEMAN [id number] CAP ACCREDITATION N O. [id number] HEMOGLOBIN [id number] 04:25:14 Test Item Value Reference Range Interpretation Comments HEMOGLOBIN A1c (test code = 12336) 6.0 % 4.2-5.6 H COMPREHENSIVE METABOLIC [id number] 04:05:00 Test Item Value Reference Range Interpretation Comments GLUCOSE (test code = 112 MG/DL 70-99 H 2216) BUN (test code = 12 MG/DL -2207) CREATININE (test 0.81 MG/DL 0.60-1.30 code = 2214) eGFR (2020 CKD-EPI) 87 ML/MIN/1.73 >60 (test code = 48703) CALC BUN/CREAT (test 15 RATIO 6-28 code = 2235) SODIUM (test code = 140 MEQ/L 921-724 3526) POTASSIUM (test code 4.4 MEQ/L 3.5-5.4 = 2228) CHLORIDE (test code 105 MEQ/L 95-107 = 2215) CARBON DIOXIDE (test 24 MEQ/L 19-31 code = 2206) CALCIUM (test code = 9.7 MG/DL 8.5-10.5 2208) PROTEIN, TOTAL (test 7.6 G/DL 6.1-8.3 code = 2229) ALBUMIN (test code = 4.4 G/DL 3.5-5.2 2200) CALC GLOBULIN (test 3.2 G/DL 1.9-3.7 code = 2240) CALC A/G RATIO (test 1.4 RATIO 1.0-2.6 code = 2234) BILIRUBIN, TOTAL 0.4 MG/DL See_Comment [Automated message] (test code = 2207) The syste m which generated this result transmit rafa reference range : <=1.2. The refe rence range was not u sed to interpret th is result as normal/abnormal . ALKALINE PHOSPHATASE 100 U/L 40-133 (test code = 2203) AST (test code = 16 U/L 9-40 2217) ALT (test code = 13 U/L 5-40 2218) LIPID [id number] 04:05:00 Test Item Value Reference Range Interpretation Comments CHOLESTEROL (test 151 MG/DL <200 code = 2210) TRIGLYCERIDES (test 111 MG/DL <150 code = 2232) HDL CHOLESTEROL (test 55 MG/DL >39 code = 2220) CALC LDL CHOL (test 77 MG/DL <100 NOTE: C ALCULATED LDL code = 2237) IS BASED ON YVES-SOLIS METHOD WHICHINCLUDES ADJUSTABLE TRIGLYCERIDE:VL DL CHOLESTEROL RAT IO.THIS FACTOR VARIES B Y MEASURED TRIGLY CERIDE AND NON-HDLCHOL ESTEROL CONCENTRATIONS WITH INCREASED CALCU LATED LDL SEENIN HIGH ER TRIGLYCERIDE OR LOWER NON-HDL SPECIME NS. FOR MOREINFORMATION , SEE CLIENT ANNOUNCE MENT AT [email or web address] [email or web address] RATIO LDL/HDL 1.40 RATIO <3.22 (test code = 2238) CULTURE, [id number] 08:33:49SPECIMEN NUMBER: [id number] CULTURE, URINE SPECIMEN NUMBER: [id number] SPECIMEN COMMENT: URINE SOURCE: URINE REPORT STATUS: FINAL FINAL REPORT: 12/20/2021 10-50,000 CFU/ML UROGENITAL TWAN PRESENT NO CO MMON PATHOGENS UNLESS OTHERWISE INDICATED, ALL TESTING PERFORMED [facility], [facility]. [address] [place] [address] CHECK PROCESSING CLERK: STEFANIE SALINAS M.D. CLIA NUMBER [id number] [place]. [id number] CULTURE, [id number] 12:12:01SPECIMEN NUMBER: [id number] CULTURE, URINE SPECIMEN NUMBER: [id number] SPECIMEN COMMENT: URINE SOURCE:URINE REPORT STATUS: FINAL ISOLATE NUMBER 1: ORGANISM: 11/26/2021 >100,000 CFU/ML GRAM NEGATIVE BA CILLI IDENTIFICATION: 11/27/2021 ESCHERICHIA COLI E. COLI AMOXICILLIN/CA SENSITIVE <=8/4AMPICILLIN SENSITIVE <=8CEFAZOLIN SENSITIVE <=2CEFTRIAXONE SENSITIVE <=1CIPROFLOXACIN SENSITIVE <=1LEVOFLOXACIN SENSITIVE <=2NITROFURANTOIN SENSITIVE <=32PIP/TAZOBAC SENSITIVE <=16TETRACYCLINE SENSITIVE <=4TOBRAMYCIN SENSITIVE <=4TRIMETH/SULFA SENSITIVE <=2/38 NOTE: NUMBERS DISPLAYED REPRESENT MINIMUM INHIBITORY CONCENTRATION (BRUNO) WHICH IS EXPRESSED IN MCG/ML. UNLESS OTHERWISE INDICATED, ALL TESTING PERFORMED [facility] [address] [place] [address] CHECK PROCESSING CLERK: STEFANIE SALINAS M.D. CLIA NUMBER [id number] [place]. [id number] + FREE T4 [id number] 06:27:42 Test Item Value Reference Range Interpretation Comments TSH, THIRD 1.180 UIU/ML 0.400-4.100 GENERATION (test code = 2821) FREE T4 (THYROXINE) 1.35 NG/DL 0.80-1.90 UNLESS OTHERWISE (test code = 2823) INDICATED , ALL TESTING PERFORMED [facility], [facility]. [address] [place] [id number] [place] [address] EDNA DIRECTOR: STEFANIE SALINAS M.D. CLIA NUMBER [id number] CAP ACCREDITATION N O. [id number] HEMOGLOBIN [id number] 06:24:07 Test Item Value Reference Range Interpretation Comments HEMOGLOBIN A1c (test code = 70892) 5.8 % 4.2-5.6 H LIPID [id number] 05:53:02 Test Item Value Reference Range Interpretation Comments CHOLESTEROL (test 140 MG/DL <200 code = 2210) TRIGLYCERIDES (test 103 MG/DL <150 code = 2232) HDL CHOLESTEROL (test 48 MG/DL >39 code = 2220) CALC LDL CHOL (test 73 MG/DL <100 NOTE: C ALCULATED LDL code = 2237) IS BASED ON YVES-SOLIS METHOD WHICHINCLUDES ADJUSTABLE TRIGLYCERIDE:VL DL CHOLESTEROL RAT IO.THIS FACTOR VARIES B Y MEASURED TRIGLY CERIDE AND NON-HDLCHOL ESTEROL CONCENTRATIONS WITH INCREASED CALCU LATED LDL SEENIN HIGH ER TRIGLYCERIDE OR LOWER NON-HDL SPECIME NS. FOR MOREINFORMATION , SEE CLIENT ANNOUNCE MENT AT [email or web address] [email or web address] RATIO LDL/HDL 1.52 RATIO <3.22 (test code = 2238) COMPREHENSIVE METABOLIC [id number] 05:53:02 Test Item Value Reference Range Interpretation Comments GLUCOSE (test code = 101 MG/DL 70-99 H 2216) BUN (test code = 14 MG/DL 6-20 2207) CREATININE (test 0.62 MG/DL 0.60-1.30 code = 2214) eGFR (2020 CKD-EPI) 107 >60 (test code = 67252) ML/MIN/1.73 CALC BUN/CREAT (test 23 RATIO 6-28 code = 2235) SODIUM (test code = 136 MEQ/L 579-998 3512) POTASSIUM (test code 3.7 MEQ/L 3.5-5.4 = 222) CHLORIDE (test code 103 MEQ/L 95-107 = 221) CARBON DIOXIDE (test 19 MEQ/L 19-31 code = 2206) CALCIUM (test code = 8.7 MG/DL 8.5-10.5 2208) PROTEIN, TOTAL (test 7.8 G/DL 6.1-8.3 code = 2229) ALBUMIN (test code = 4.5 G/DL 3.5-5.2 2200) CALC GLOBULIN (test 3.3 G/DL 1.9-3.7 code = 2240) CALC A/G RATIO (test 1.4 RATIO 1.0-2.6 code = 2234) BILIRUBIN, TOTAL 1.0 MG/DL See_Comment [Automated message] (test code = 2207) The syste [employer] which generated this result transmit rafa reference range : <=1.2. The refe rence range was not u sed to interpret th is result as normal/abnormal . ALKALINE PHOSPHATASE 85 U/L 40-132 (test code = 4) AST (test code = 16 U/L 9-40 2217) ALT (test code = 13 U/L 5-40 2218) TROPONIN [id number] 21:49:50 Test Item Value Reference Interpretation Comments Range TROPONIN I (test 0.003 ng/mL See_Comment [Automated code = 6546456985) message] The system which generated this result transmitted reference range : <=0.034. The reference range was not used to interpret this result as normal/abnormal . MARRY (test code = Reference (Normal) MARRY) Range (defined by the 99th percentile reference limit): <= 0.034 ng/mL Note: Cardiac troponin begins to rise 3-4 hours after the onset of ischemia. Repeat in 4-6 hours if the sample was drawn within 3-4 hours of the onset of the symptom and found normal. Diagnosis of myocardial injury is made with acute changes in cTn concentrations with at least one serial sample above the 99th percentile upper reference limit (URL), taken together with the patient's clinical presentation. Biotin has been reported to cause a negative bias, interpret results relative to patient's use of biotin. Lab Interpretation Normal (test code = 50527-3) [id number] 21:46:48 Test Item Value Reference Range Interpretation Comments NT-proBNP (test code 39 pg/mL See_Comment [Autom ated = 7333850850) message] The system which generated this result transmitted reference range : <=125. The reference range was not used to interpret this result as normal/abnormal . MARRY (test code = MARRY) Biotin has been reported to cause a negative bias, interpret results relative to patient's use of biotin. Lab Interpretation Normal (test code = 12989-7) [id number] 21:38:09 Test Item Value Reference Range Interpretation Comments MAGNESIUM (test code = 4155945204) 1.6 mg/dL 1.7-2.4 L Lab Interpretation (test code = Abnormal 47338-8) [facility]. METABOLIC PANEL (09008)2021-06-09 21:37:49 Test Item Value Reference Range Interpretation Comments NA (test code = 137 mmol/L 135-145 2482019639) K (test code = 3.7 mmol/L 3.5-5.0 2936332016) CL (test code = 100 mmol/L 98-108 0190772512) CO2 TOTAL (test code = 26 mmol/L 23-31 9602136353) AGAP (test code = 2-16 5918023742) BUN (test code = 15 mg/dL 7-23 5323863792) GLUCOSE (test code = 113 mg/dL 70-110 H 4365929197) CREATININE (test code = 0.69 mg/dL 0.50-1.04 3918137289) TOTAL BILI (test code = 0.6 mg/dL 0.1-1.1 4114348631) CALCIUM (test code = 9.3 mg/dL 8.6-10.6 4398159973) T PROTEIN (test code = 8.9 g/dL 6.3-8.2 H 7836063306) ALBUMIN (test code = 5.0 g/dL 3.5-5.0 7350205242) ALK PHOS (test code = 78 U/L 34-122 3386190235) ALTv (test code = 18 U/L 5-35 1742-6) AST(SGOT) (test code = 25 U/L 13-40 9039430316) eGFR (test code = mL/min/1.73m2 3604493312) MARRY (test code = MARRY) Association of Glomerular Filtration Rate (GFR) and Staging of Kidney Disease* + --+ --+ ------+| GFR (mL/min/1.73 m2) ?| With Kidney Damage ?| ?Without Kidney Damage+ --------+ --------+ +| ?>90 ?| ?Stage one ?| ? Normal ?+ ---+ ---+ -------+| ?60-89 ?| ?Stage two ?| ? Decreased GFR ? + --+ --+ ------+| ?30-59 ?| ?Stage three ?| ? Stage three ? + --+ --+ ------+| ?15-29 ?| ?Stage four ? | ? Stage four ?+ ---+ ---+ -------+| ?<15 (or dialysis) ? ?| ?Stage five ? | ? Stage five ?+ ---+ ---+ -------+ *Each stage assumes the associated GFR level has been in effect for at least three months. ?Stages 1 to 5, with or without kidney disease, indicate chronic kidney disease. Notes: Determination of stages one and two (with eGFR >59mL/min/1.73 m2) requires estimation of kidney damage for at least three months as defined by structural or functional abnormalities of the kidney, manifested by either:Pathological abnormalities or Markers of kidney damage (including abnormalities in the composition of the blood or urine or abnormalities in imaging tests). Lab Interpretation Abnormal (test code = 79126-4) [facility] WITH [id number] 21:20:43 Test Item Value Reference Range Interpretation Comments WBC (test code = See_Comment [Automated message] 6690-2) The system [employer] generated this result transmitted ref erence range: 4.30 - 1 1.10 10*3/?L. The re ference range was not u sed to interpret this result as normal/abnor mal. RBC (test code = See_Comment [Automated message] 789-8) The system [employer] generated this result transmitted ref erence range: 3.93 - 5 .25 10*6/?L. The re ference range was not u sed to interpret this result as normal/abnor mal. HGB (test code = 13.2 g/dL 11.6-15.0 718-7) HCT (test code = 40.3 % 35.7-45.2 4544-3) MCV (test code = 83.6 fL 80.6-95.5 787-2) MCH (test code = 27.4 pg 25.9-32.8 785-6) MCHC (test code = 32.8 g/dL 31.6-35.1 786-4) RDW-SD (test code 40.2 fL 39.0-49.9 = 25696-5) RDW-CV (test code 13.2 % 12.0-15.5 = 788-0) PLT (test code = See_Comment [Automated message] 777-3) The system whic h generated this result transmitted ref erence range: 166 - 35 8 10*3/?L. The re ference range was not u sed to interpret this result as normal/abnor mal. MPV (test code = 10.8 fL 9.5-12.9 13863-2) NRBC/100 WBC (test See_Comment [Automat ed message] code = 5831938499) The syste m which generated this result transmitted ref erence range: 0.0 - 10 .0 /100 WBCs. The refer ence range was not u sed to interpret this result as normal/abnor mal. NRBC x10^3 (test <0.01 See_Comment [Automated message] code = 8788019431) The syste m which generated this result transmitted ref erence range: 10*3/?L. The reference range was not used to interpr et this result as normal/abnormal . GRAN MAT (NEUT) % 69.3 % (test code = 770-8) IMM GRAN % (test 0.40 % code = 8708026452) LYMPH % (test code 23.1 % = 736-9) MONO % (test code 5.3 % = 5905-5) EOS % (test code = 1.5 % 713-8) BASO % (test code 0.4 % = 706-2) GRAN MAT 6.96 10*3/uL 1.88-7.09 x10^3(ANC) (test code = 8222225776) IMM GRAN x10^3 0.04 10*3/uL 0.00-0.06 (test code = 1998925751) LYMPH x10^3 (test 2.32 10*3/uL 1.32-3.29 code = 731-0) MONO x10^3 (test 0.53 10*3/uL 0.33-0.92 code = 742-7) EOS x10^3 (test 0.15 10*3/uL 0.03-0.39 code = 711-2) BASO x10^3 (test 0.04 10*3/uL 0.01-0.07 code = 704-7) [facility] (COVID-19), RT-PCR/[id number] 15:38:42 Test Item Value Reference Interpretation Comments Range SARS-CoV-2 NEGATIVE SEE NOTE SARS-CoV-2 RNA NOT INTERPRETATION DETECTEDNegat oleg (test code = 79261) results do not preclude SARS-CoV-2 infe ction and should notb e used as the sole bas is for patient managem ent decisions. Negativeresults must be combined with c linical observations, p atient history,and epidemiological information. Op timum specimen types and timingfor peak viral levels during infections caus ed by SARS-CoV-2 have notbeen determined. Col lection of multiple spe cimens or types ofspec imens may be necessar y to detect virus. I mproper specimencollect ion and handling, seque nce variability und er primers/probes, or organism presen t below the limit of de tection may lead to falsenegative r esults. Positive and ne gative predictive valu es oftesting are h ighly dependent on prevalence. Fal se negative testre sults are more likely when prevalence is h igh. SOURCE (test code = NOT SPECIFIED Note: [place] [address]) Oscar Graham Panacea l-Time RT-PCR. The exp ected result or refer ence range is NEGATI VE (Not Detected). For more information reg arding COVID-19 testin g to include clinicalinforma tion, methodology det ail, intended use, F DA authorization andrecommended fact sheets for kota ents or healthcare prov iders, see NewTest Announcement: SARS-CoV-2 (COV ID-19) by NAAT at URL below (note,fact shee ts are provided by met hod given in report:https:// [email or web address]/clinici [email or web address] nt-communicatio ns/ Alternatively, see downloadable PD F fact sheet at:https://www. [facility]/COVID-19-RT -PCR UNLESS OTHERWIS E INDICATED, ALL TESTING PERFORMED ATCLI NICAL PATHOLOGY LABOR [employer] [address] [place] [address] 4 LABORATORY DIRE CTOR: STEFANIE OATES M.D. CLIA NUMBER [id number] [facility] [place] [id number]"
--- NOTE | 2022-05-25 17:02 | RAD REPORT ---
EXAM DESCRIPTION: RAD - Chest Single View - 05/25/2022 4:57 pm CLINICAL HISTORY: CHEST PAIN Chest pain. COMPARISON: Chest Single View dated 03/26/2021; Chest Single View dated 11/16/2020; Chest Single View dated 08/07/2020; Chest Pa And Lat (2 Views) dated 03/24/2018 FINDINGS: Portable technique limits examination quality. Interstitial prominence bilaterally which may represent mild pulmonary edema or a viral infection. Th e heart is mildly enlarged in size. No displaced fractures. IMPRESSION: Mild CHF versus viral infection pattern.
[2022-05-25 17:06] LABS: Absolute Lymphocytes (CBC) 2.4 K/uL (0.7-4.9); Hematocrit 36.7 % (36.0-45.0); Lymphocytes % 24.3 % (15.3-44.8); MCV 84.3 fL (80-100); MPV 8.6 fL (7.6-11.3); RBC Red Blood Cell Count 4.36 M/uL (3.86-4.86)
[2022-05-25 17:25] LABS: Potassium 3.9 mmol/L (3.5-5.1); Troponin High Sensitivity 5.7 pg/mL (<58.9)
[2022-05-25] MEDS ORDERED: FAMOTIDINE 20 MG TAB ONE (17:34)
[2022-05-25] MEDS ORDERED: ASPIRIN 81 MG CHEWABLE TABLET ONE (17:34)
[2022-05-25] MEDS ORDERED: PANTOPRAZOLE 40 MG INJ ONE (17:34)
--- NOTE | 2022-05-25 19:50 | EDPHYS ---
Physician Documentation [facility] Name: Maryjane Meza Age: 52 yrs Sex: Female : 1970 Arrival Date: 05/25/2022 Time: 15:53 Bed 20 Private MD: ED Physician Billy Cramer HPI: 05/25 17:32 This 52 yrs old Female presents to ER via Ambulatory with complaints of Chest snw Pain. 17:32 The patient or guardian reports chest pain that is located primarily in the anterior snw chest wall, left. Onset: acutely. The pain does not radiate. Associated signs and symptoms: Pertinent positives: lower extremity swelling, shortness of breath. The chest pain is described as burning. Duration: The patient or guardian reports multiple episodes. Modifying factors: The symptoms are alleviated by nothing. the symptoms are aggravated by activity. as noted. 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 - Irregular menses ap3 Historical: - Allergies: 05/25 16:21 NKDA; iw - Home Meds: 16:21 cyanocobalamin (vit B-12) miscellaneous IM every 30 days [Active]; levothyroxine 100 iw mcg tab once daily [Active]; 16:22 furosemide 20 mg Oral tab 2 tabs once daily [Active]; carvedilol 3.125 mg oral tab 1 iw tab 2 times per day [Active]; potassium chloride 20 mEq Oral TbER 1 tab once daily [Active]; Farxiga 10 mg oral tab 1 tab once daily [Active]; lisinopril 40 mg Oral tab 1 tab once daily [Active]; - PMHx: 16:21 Anemia; Hypertension; Hypothyroidism; iw - PSHx: 16:21 Cholecystectomy; hernia; IUD; tubal ligation; iw - Immunization history:: Adult Immunizations. - Social history:: Smoking status: Patient denies any tobacco usage or history of. Patient/guardian denies using alcohol. ROS: 17:31 Eyes: Negative for injury, pain, redness, and discharge, ENT: Negative for injury, snw pain, and discharge, Neck: Negative for injury, pain, and swelling. 17:31 Abdomen/GI: Negative for abdominal pain, nausea, vomiting, diarrhea, and constipation, Back: Negative for injury and pain, : Negative for injury, bleeding, discharge, and swelling, MS/Extremity: Negative for injury and deformity, Skin: Negative for injury, rash, and discoloration, Neuro: Negative for headache, weakness, numbness, tingling, and seizure. 17:31 Constitutional: Positive for malaise. 17:31 Cardiovascular: Positive for chest pain, of the anterior aspect of left upper chest and mid-sternal area. 17:31 Respiratory: Positive for dyspnea on exertion, shortness of breath, at rest. Exam: 17:31 Constitutional: This is a well developed, well nourished patient who is awake, alert, snw and in no acute distress. Head/Face: Normocephalic, atraumatic. Eyes: Pupils equal round and reactive to light, extra-ocular motions intact. Lids and lashes normal. Conjunctiva and sclera are non-icteric and not injected. Cornea within normal limits. Periorbital areas with no swelling, redness, or edema. ENT: Nares patent. No nasal discharge, no septal abnormalities noted. Tympanic membranes are normal and external auditory canals are clear. Oropharynx with no redness, swelling, or masses, exudates, or evidence of obstruction, uvula midline. Mucous membranes moist. Neck: Trachea midline, no thyromegaly or masses palpated, and no cervical lymphadenopathy. Supple, full range of motion without nuchal rigidity, or vertebral point tenderness. No Meningismus. Chest/axilla: Normal chest wall appearance and motion. Nontender with no deformity. No lesions are appreciated. Cardiovascular: Regular rate and rhythm with a normal S1 and S2. No gallops, murmurs, or rubs. Normal PMI, no JVD. No pulse deficits. Respiratory: Lungs have equal breath sounds bilaterally, clear to auscultation and percussion. No rales, rhonchi or wheezes noted. No increased work of breathing, no retractions or nasal flaring. Abdomen/GI: Soft, non-tender, with normal bowel sounds. No distension or tympany. No guarding or rebound. No evidence of tenderness throughout. Back: No spinal tenderness. No costovertebral tenderness. Full range of motion. Skin: Warm, dry with normal turgor. Normal color with no rashes, no lesions, and no evidence of cellulitis. MS/ Extremity: Pulses equal, no cyanosis. Neurovascular intact. Full, normal range of motion. Neuro: Awake and alert, GCS 15, oriented to person, place, time, and situation. Cranial nerves II-XII grossly intact. Motor strength 5/5 in all extremities. Sensory grossly intact. Cerebellar exam normal. Normal gait. Psych: Awake, alert, with orientation to person, place and time. Behavior, mood, and affect are within normal limits. Vital Signs: 16:20 BP 140 / 72; Pulse 70; Resp 16; Temp 98.6; Pulse Ox 98% on R/A; Weight 122.47 kg; iw Height 5 ft. 7 in. (170.18 cm); 17:00 BP 134 / 86; Pulse 69; Resp 18; Pulse Ox 100% on R/A; Pain 8/10; ld1 18:24 BP 130 / 75; Pulse 63; Resp 18; Pulse Ox 100% on R/A; Pain 5/10; ld1 19:00 BP 128 / 71; Pulse 81; Resp 18; Pulse Ox 100% on R/A; ld1 19:50 BP 111 / 58; Pulse 64; Resp 16 S; Pulse Ox 99% on R/A; ha1 20:50 BP 130 / 75; Pulse 65; Resp 16 S; Pulse Ox 9% on R/A; ha1 21:50 BP 123 / 53; Pulse 68; Resp 15 S; Pulse Ox 99% on R/A; ha1 16:20 Body Mass Index 42.29 (122.47 kg, 170.18 cm) iw MDM: 16:20 Differential diagnosis: abnormal EKG, acute myocardial infarction, acute pericarditis, snw coronary artery disease gastroesophageal reflux disease (GERD). Counseling: I had a detailed discussion with the patient and/or guardian regarding: the historical points, exam findings, and any diagnostic results supporting the discharge/admit diagnosis, the presence of at least one elevated blood pressure reading (>120/80) during this emergency department visit, lab results, radiology results, the need for further work-up and treatment in the hospital. 16:20 Management of patient was discussed with the following: Hospitalist: Aide Qiu - snmona for Hospitalist group. 16:37 Patient medically screened. snw 17:27 HEART Score: History: Moderately Suspicious (1), ECG: Normal (0), Age: > 45 and < 65 snw years (1), Risk Factors: > or = 3 Risk factors for atherosclerotic disease (2), [Hypercholesterolemia] [Hypertension] [DM] [Obesity] Troponin: < or = 1 x Normal Limit (0), Total Score = 4. The patient was given aspirin in the Emergency Department. Data reviewed: vital signs, nurses notes. Consideration of Admission/Observation EKG and troponin within normal. Pt not on blood thinners. Has heart score of 4. CXR shows mild overload. Pt does take lasix at home. Discussed reflux s/s as pt has been on Amoxil for URI/OM. Pt states her ears and URI improved but chest pain remains with SOB that increases on exertion. 19:31 Response to treatment: "burning" pain is resolved however pt continues to have snw "pressure". 05/25 16:29 Order name: Basic Metabolic Panel; Complete Time: 17:26 ld1 05/25 16:29 Order name: CBC with Diff; Complete Time: 17:26 ld1 05/25 16:29 Order name: Troponin HS; Complete Time: 17:26 ld1 05/25 16:36 Order name: TSH; Complete Time: 17:33 snw 05/25 16:36 Order name: TS; Complete Time: 17:51 snw 05/25 21:00 Order name: SARS RAPID ha1 05/25 21:46 Order name: Glucose, Ancillary Testing; Complete Time: 11:50 EDMS 05/25 22:56 Order name: SARS-COV-2 Antigen Rapid; Complete Time: 11:50 EDMS 05/25 22:59 Order name: Troponin High Sensitivity; Complete Time: 11:50 EDMS 05/26 03:00 Order name: CBC with Automated Diff; Complete Time: 11:50 EDMS 05/26 03:31 Order name: Basic Metabolic Panel; Complete Time: 11:50 EDMS 05/26 03:31 Order name: Phosphorus; Complete Time: 11:50 EDMS 05/26 03:31 Order name: Troponin High Sensitivity; Complete Time: 11:50 EDMS 05/26 03:31 Order name: NT PRO-BNP; Complete Time: 11:51 EDMS 05/25 16:29 Order name: XRAY Chest (1 view); Complete Time: 17:04 ld1 05/25 16:29 Order name: EKG; Complete Time: 16:30 ld1 05/25 16:29 Order name: Cardiac monitoring; Complete Time: 17:00 ld1 05/25 16:29 Order name: EKG - Nurse/Tech; Complete Time: 16:37 ld1 05/25 16:29 Order name: IV Saline Lock; Complete Time: 17:00 ld1 05/25 16:29 Order name: Labs collected and sent; Complete Time: 17:00 ld1 05/25 16:29 Order name: O2 Per Protocol; Complete Time: 16:37 ld1 05/26 03:31 Order name: Lipid Profile; Complete Time: 11:51 EDMS 05/26 03:31 Order name: C-Reactive Protein; Complete Time: 11:50 EDMS 05/26 03:31 Order name: Magnesium; Complete Time: 11:51 EDMS 05/26 03:40 Order name: Hemoglobin A1c; Complete Time: 11:51 EDMS 05/26 10:28 Order name: Glucose, Ancillary Testing; Complete Time: 11:51 EDMS 05/26 11:38 Order name: NM; Complete Time: 11:51 EDMS 05/25 16:29 Order name: O2 Sat Monitoring; Complete Time: 16:37 ld1 Administered Medications: 17:38 Drug: Pepcid (famotidine) 20 mg Route: PO; ld1 17:38 Drug: ProTONIX (pantoprazole) 40 mg Route: IVP; Site: right antecubital; ld1 17:38 Drug: Aspirin Chewable Tablet 324 mg Route: PO; ld1 Disposition Summary: 05/25/22 19:49 Hospitalization Ordered Hospitalization Status: Observation snw Provider: Juan Hernandez snw Condition: Stable snw Problem: new snw Symptoms: are unchanged snw Bed/Room Type: Standard snw Location: Telemetry/MedSurg (observation)(05/26/22 14:22) bd Room Assignment: 407(05/26/22 14:22) bd Diagnosis - Angina pectoris, unspecified snw Forms: - Medication Reconciliation Form snw - SBAR form snw Addendum: 05/29/2022 13:28 Co-signature as Attending Physician, Billy Cramer MD I agree with the assessment and c michelle plan of care. Signatures: Dispatcher [employer] EDAnjelica Ramirez Corey, MD MD cha Waters, Shelly, TILE AND MARBLE SETTER-C TILE AND MARBLE SETTER-Csnw Ann Decker, RN RN Valerie Flores, RN RN cg Denise Hanson, RN RN ld1 Corrections: (The following items were deleted from the chart) 05/25 16:21 Home Meds: amlodipine 5 mg tab 1 tab once daily; 16:21 Home Meds: benzonatate 100 mg Oral cap 2 caps 3 times per day; 16: Home Meds: clopidogrel 75 mg Oral tab 1 tab once daily; 16:21 Home Meds: ferrous sulfate 325 mg (65 mg iron) Oral TbEC twice a day; 16: Home Meds: hydrochlorothiazide 25 mg Oral tab 1 tab once daily; : Home Meds: proair as needed; 19:49 Telemetry/MedSurg (observation) [facility] : 19:49 [facility] 05/26 14:22 05/25 20:25 [facility] ER HOLD cg bd 05/26 14[facility]05[facility]25 [facility]
--- NOTE | 2022-05-25 19:50 | ER ---
Nurse's Notes [facility] Name: Maryjane Meza Age: 52 yrs Sex: Female : 1970 Arrival Date: 05/25/2022 Time: 15:53 Bed 20 Private MD: Diagnosis: Angina pectoris, unspecified Presentation: 05/25 16:20 Chief complaint: Patient states: midsternal chest pain radiating to back X 2 days, some iw diff breathing, mild cough , I have a weird sensation across the back of my head too, no fever. Coronavirus screen: Client presents with at least one sign or symptom that may indicate coronavirus-19. Ebola Screen: Patient negative for fever greater than or equal to 101.5 degrees Fahrenheit, and additional compatible Ebola Virus Disease symptoms Patient denies exposure to infectious person. Patient denies travel to an Ebola-affected area in the 21 days before illness onset. No symptoms or risks identified at this time. Initial Sepsis Screen: Does the patient meet any 2 criteria? No. Patient's initial sepsis screen is negative. Does the patient have a suspected source of infection? No. Patient's initial sepsis screen is negative. Risk Assessment: Do you want to hurt yourself or someone else? Patient reports no desire to harm self or others. Onset of symptoms was May 23, 2022. 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 - Irregular menses ap3 Historical: - Allergies: 05/25 16:21 NKDA; iw - Home Meds: 16:21 cyanocobalamin (vit B-12) miscellaneous IM every 30 days [Active]; levothyroxine 100 iw mcg tab once daily [Active]; 16:22 furosemide 20 mg Oral tab 2 tabs once daily [Active]; carvedilol 3.125 mg oral tab 1 iw tab 2 times per day [Active]; potassium chloride 20 mEq Oral TbER 1 tab once daily [Active]; Farxiga 10 mg oral tab 1 tab once daily [Active]; lisinopril 40 mg Oral tab 1 tab once daily [Active]; - PMHx: 16:21 Anemia; Hypertension; Hypothyroidism; iw - PSHx: 16:21 Cholecystectomy; hernia; IUD; tubal ligation; iw - Immunization history:: Adult Immunizations. - Social history:: Smoking status: Patient denies any tobacco usage or history of. Patient/guardian denies using alcohol. Screenin:00 [facility] ED Fall Risk Assessment (Adult) History of falling in the last 3 months, ld1 including since admission No falls in past 3 months (0 pts). Abuse screen: Denies threats or abuse. Denies injuries from another. Abuse screen: Denies threats or abuse. Nutritional screening: No deficits noted. Tuberculosis screening: No symptoms or risk factors identified. Assessment: 17:00 Reassessment: Patient appears in no apparent distress at this time. No changes from ld1 previously documented assessment. Patient and/or family updated on plan of care and expected duration. Pain level reassessed. See triage assessment. General: Appears in no apparent distress. comfortable, Behavior is calm, cooperative, appropriate for age. Pain: Complains of pain in chest Pain does not radiate. Pain currently is 8 out of 10 on a pain scale. Quality of pain is described as heavy, pressure, Pain began gradually. Neuro: Level of Consciousness is awake, alert, obeys commands, Oriented to person, place, time, situation, Appropriate for age. Cardiovascular: Capillary refill < 3 seconds Patient's skin is warm and dry. Rhythm is sinus rhythm. Respiratory: Airway is patent Respiratory effort is even, unlabored. GI: Abdomen is round non-distended. : No signs and/or symptoms were reported regarding the genitourinary system. 18:24 Reassessment: Patient appears in no apparent distress at this time. Patient and/or ld1 family updated on plan of care and expected duration. Pain level reassessed. Patient is alert, oriented x 3, equal unlabored respirations, skin warm/dry/pink. 19:00 Reassessment: Patient appears in no apparent distress at this time. Patient and/or ld1 family updated on plan of care and expected duration. Pain level reassessed. 19:50 General: Appears comfortable, Behavior is calm, cooperative. Pain: Complains of pain in ha1 chest Pain does not radiate. Pain currently is 3 out of 10 on a pain scale. Quality of pain is described as pressure. Neuro: Level of Consciousness is awake, alert, obeys commands, Oriented to person, place, time, situation. Cardiovascular: Reports pressure on chest Capillary refill < 3 seconds Patient's skin is warm and dry. Rhythm is sinus rhythm. Cardiovascular: Reports shortness of breath, Respiratory: Airway is patent Respiratory effort is even, unlabored. Respiratory: GI: Abdomen is non-distended, obese. : No signs and/or symptoms were reported regarding the genitourinary system. EENT: No deficits noted. No signs and/or symptoms were reported regarding the EENT system. Derm: Skin is dry, Skin is normal. Musculoskeletal: Circulation, motion, and sensation intact. Range of motion: intact in all extremities. Musculoskeletal: Swelling present in right leg. 20:50 Reassessment: Patient and/or family updated on plan of care and expected duration. Pain ha1 level reassessed. Patient is alert, oriented x 3, equal unlabored respirations, skin warm/dry/pink. 21:50 Reassessment: Patient and/or family updated on plan of care and expected duration. Pain ha1 level reassessed. Patient is alert, oriented x 3, equal unlabored respirations, skin warm/dry/pink. Patient states symptoms have improved. 05/26 14:55 Reassessment: report called to receiving nurse. ap3 Vital Signs: 05/25 16:20 BP 140 / 72; Pulse 70; Resp 16; Temp 98.6; Pulse Ox 98% on R/A; Weight 122.47 kg; iw Height 5 ft. 7 in. (170.18 cm); 17:00 BP 134 / 86; Pulse 69; Resp 18; Pulse Ox 100% on R/A; Pain 8/10; ld1 18:24 BP 130 / 75; Pulse 63; Resp 18; Pulse Ox 100% on R/A; Pain 5/10; ld1 19:00 BP 128 / 71; Pulse 81; Resp 18; Pulse Ox 100% on R/A; ld1 19:50 BP 111 / 58; Pulse 64; Resp 16 S; Pulse Ox 99% on R/A; ha1 20:50 BP 130 / 75; Pulse 65; Resp 16 S; Pulse Ox 9% on R/A; ha1 21:50 BP 123 / 53; Pulse 68; Resp 15 S; Pulse Ox 99% on R/A; ha1 16:20 Body Mass Index 42.29 (122.47 kg, 170.18 cm) iw ED Course: 15:53 Patient arrived in ED. mr 16:21 Triage completed. iw 16:22 Arm band placed on. iw 16:29 Denise Hanson, RN is Primary Nurse. ld1 16:36 Julieta Lambert FNP-C [facility]. snw 16:36 Billy Cramer MD is Attending Physician. snw 16:58 XRAY Chest (1 view) In Process Unspecified. EDMS 17:00 Patient has correct armband on for positive identification. Placed in gown. Bed in low ld1 position. Call light in reach. Side rails up X2. compliance monitor on. Pulse ox on. NIBP on. Door closed. Noise minimized. Warm blanket given. 17:00 No provider procedures requiring assistance completed. Inserted saline lock: 20 gauge ld1 in right antecubital area, using aseptic technique. Blood collected. Patient maintains SpO2 saturation greater than 95% on room air. 19:47 Juan Hernandez is Hospitalizing Provider. snw 19:50 Patient admitted, IV remains in place. ha1 05/26 00:52 Primary Nurse role handed off by Denise Hanson, OSMANI ha1 00:52 Cristina Gaines RN is Primary Nurse. ha1 Administered Medications: 05/25 17:38 Drug: Pepcid (famotidine) 20 mg Route: PO; ld1 17:38 Drug: ProTONIX (pantoprazole) 40 mg Route: IVP; Site: right antecubital; ld1 17:38 Drug: Aspirin Chewable Tablet 324 mg Route: PO; ld1 Medication: 17:00 VIS not applicable for this client. ld1 Outcome: 19:49 Decision to Hospitalize by Provider. snw 19:50 Condition: stable ha1 19:50 Admitted to ER Hold. Please see [facility] for further documentation. ha1 19:50 Discharge instructions given to patient, Instructed on the need for admit, Demonstrated understanding of instructions. 05/26 15:01 Patient left the ED. ap3 Signatures: Dispatcher [employer] EDNC Julieta Lambert FNP-C RADIO DIVISION CAPTAIN-Ashok Audra RodrigezAnn RN OSMANI iw Calista Hong RN RN ap3 Denise Hanson, OSMANI RN ld1 Cristina Gaines RN RN ha1 Corrections: (The following items were deleted from the chart) 05/25 16:21 Home Meds: amlodipine 5 mg tab 1 tab once daily; [facility] 16: Home Meds: benzonatate 100 mg Oral cap 2 caps 3 times per day; [facility] 16: Home Meds: clopidogrel 75 mg Oral tab 1 tab once daily; [facility] 16:21 Home Meds: ferrous sulfate 325 mg (65 mg iron) Oral TbEC twice a day; [facility] Home Meds: hydrochlorothiazide 25 mg Oral tab 1 tab once daily; [facility] Home Meds: proair as needed; [facility] 05/26 21:00 General: Appears comfortable, Behavior is calm, cooperative, [place] [id number] 05/26 21:00 Pain: Complains of pain in chest Pain does not radiate. Pain currently is 3 ha1 out of 10 on a pain scale. Quality of pain is described as pressure, [facility] 05/26 21:00 Neuro: Level of Consciousness is awake, alert, obeys commands, Oriented to [facility] person, place, time, situation, [facility] 05/26 21:00 Cardiovascular: Reports pressure on chest Capillary refill < 3 seconds [facility] Patient's skin is warm and dry. Rhythm is sinus rhythm [facility] 05/26 21:00 Respiratory: Airway is patent Respiratory effort is even, unlabored, [place] [id number] 05/26 21:00 GI: Abdomen is non-distended, obese, [place] [id number] 05/26 21:00 : No signs and/or symptoms were reported regarding the genitourinary ha1 system. [facility] 05/26 21:00 EENT: No deficits noted. No signs and/or symptoms were reported regarding ha1 the EENT system. [facility] 05/26 21:00 Derm: Skin is dry, Skin is normal, [place] [id number] 05/26 21:00 Musculoskeletal: Circulation, motion, and sensation intact. Range of [facility] motion: intact in all extremities, [facility] 05/26 21:00 Cardiovascular: Reports shortness of breath, ha1 1 05/26 06:51 05/25 21:00 Derm: ha1 1 05/26 05:05/25 21:00 Respiratory: ha1 1 05/26 06:05/25 21:00 Musculoskeletal: Swelling present in right leg ha1 ha1
--- NOTE | 2022-05-25 20:44 | P.HP ---
Certification for Inpatient Patient admitted to: Observation With expected LOS: <2 Midnights Patient will require the following post-hospital care: None Practitioner: I am a practitioner with admitting privileges, knowledge of patient current condition, hospital course, and medical plan of care. Services: Services provided to patient in accordance with Admission requirements found in Title 42 Section 412.3 of the Code of Federal Regulations Patient History Date of Service: 05/25/22 Reason for admission: Chest Pain History of Present Illness: Patient is a 52-year-old female with past medical history of hypertension, noninsulin-dependent type 2 diabetes, hypothyroidism, hyperlipidemia, and anemia who presented to the emergency department with complaints of chest pain and shortness of breath. Patient states that she has had an upper respiratory infection the past week and has been taking amoxicillin. She states that she has had some mild shortness of breath associated with it and today started experiencing some chest burning and heaviness. The shortness of breath and chest burning improved in the emergency department with Protonix however her chest heaviness persist. She states that it worsens to whichever side she moves. Her labs and EKG are unremarkable. Chest x-ray showed viral process versus CHF. Patient does take Lasix but denies history of CHF. She has not seen a pesticide applicator in over a year. She will be admitted for observation, ACS rule out. Allergies No Known Drug Allergies Allergy (Verified 12/03/14 20:41) Unknown Home medications list reviewed: Yes Home Medications: Cyanocobalamin (Vitamin B-12) [Vitamin B-12] 1,000 mcg PO DAILY #90 capsule 03/25/18 Ferrous Sulfate [Ferrous Sulfate*] 325 mg PO TID #90 tab 03/25/18 Levothyroxine [Synthroid*] 1 tab PO [id number] 03/25/18 lisinopriL [Lisinopril] 1 tab PO DAILY 03/25/18 - Past Medical/Surgical History Diabetic: No -: Osteoarthritis -: Hypertension -: Anemia -: Type 2 Diabetes -: CHF -: Cholecystectomy -: Partial thyroidectomy -: Tubal ligation Psychosocial/ Personal History: Patient is . - Family History Father -: Heart disease Mother -: Heart disease - Social History Smoking Status: Never smoker Alcohol use: No CD- Drugs: No Caffeine use: Yes Place of Residence: Home Review of Systems General: Weakness Respiratory: SOB with Excertion Cardiovascular: Chest Pain Physical Examination - Vital Signs Temperature: 98.6 F Blood Pressure: 128/71 Pulse: 81 Respirations: 18 Pulse Ox (%): 100 - Physical Exam General: Alert, In no apparent distress, Obese HEENT: Atraumatic, PERRLA, EOMI, Sclerae nonicteric Neck: Supple, 2+ carotid pulse no bruit, No LAD, Without JVD or thyroid abnormality Respiratory: Clear to auscultation bilaterally, Normal air movement Cardiovascular: Regular rate/rhythm, Normal S1 S2, Edema (1+ pitting edema bilateral ankles) Gastrointestinal: Normal bowel sounds, No tenderness Musculoskeletal: No tenderness Integumentary: No rashes Neurological: Normal speech, Normal strength at 5/5 x4 extr, Normal tone, Normal affect - Studies Laboratory Data (last 24 hrs) 05/25/22 16:54: WBC 9.80, Hgb 12.4, Hct 36.7, Plt Count 248 05/25/22 16:54: Sodium 137, Potassium 3.9, BUN 10, Creatinine 0.79, Glucose 100 Assessment and Plan - Problems (Diagnosis) (1) Chest pain Current Visit: Yes Status: Acute Qualifiers: Chest pain type: unspecified Qualified Code(s): R07.9 - Chest pain, unspecified (2) Type 2 diabetes mellitus Current Visit: Yes Status: Chronic Qualifiers: Diabetes mellitus director long term care insulin use: without director long term care use Diabetes mellitus complication status: without complication Qualified Code(s): E11.9 - Type 2 diabetes mellitus without complications (3) Hypertension Current Visit: Yes Status: Chronic Qualifiers: Hypertension type: primary hypertension Qualified Code(s): I10 - Essential (primary) hypertension (4) Hypothyroidism Current Visit: Yes Status: Chronic Qualifiers: Hypothyroidism type: postoperative Qualified Code(s): E89.0 - Postprocedural hypothyroidism - Plan Patient is admitted for observation, ACS rule out. Pericarditis on differential given recent URI. Will check CRP (lab apparently does not perform ESR anymore). Echocardiogram ordered and cardiology consulted. Monitor on telemetry. Trend troponin. Initial negative. Aspirin and atorvastatin daily. Lipid panel and A1c ordered. ACHS Accu-Cheks and mild sliding scale insulin. Monitor and replete electrolytes per protocol. Reconcile continue home medications. Lovenox for VTE prophylaxis. Full code. Discharge Plan: Home Plan to discharge in: 24 Hours - Advance Directives Does patient have a Living Will: No Does patient have a Durable POA for Healthcare: No - Code Status/Comfort Care Code Status Assessed: Yes Code Status: Full Code Physician Review: Patient Assessed, Agree with Above Assessment and Plan Critical Care: No Time Spent Managing Pts Care (In Minutes): 50
[2022-05-25] MEDS: ATORVASTATIN 40 MG TAB PO SCH (21:16)
[2022-05-25] MEDS ORDERED: ACETAMINOPHEN 500 MG TAB PO PRN (21:16)
[2022-05-25] MEDS: INSULIN -REGULAR HUMAN 50 UNIT/0.5 ML ML SQ SCH (21:16)
[2022-05-25] MEDS ORDERED: ONDANSETRON 4 MG/2 ML VIAL IV PRN (21:16)
[2022-05-25] MEDS ORDERED: ATORVASTATIN 20 MG TAB ONE (21:54)
[2022-05-25 22:55] LABS: SARS-CoV-2 Antigen Rapid Res Negative (Negative)
[2022-05-26 02:54] LABS: Absolute Lymphocytes (CBC) 2.8 K/uL (0.7-4.9); Hematocrit 34.8 % (36.0-45.0); Lymphocytes % 31.2 % (15.3-44.8); MCV 84.4 fL (80-100); MPV 8.7 fL (7.6-11.3); RBC Red Blood Cell Count 4.12 M/uL (3.86-4.86)
[2022-05-26 03:31] LABS: C-Reactive Protein 4.18 mg/L (<3.00); Magnesium 2.1 mg/dL (1.6-2.4); Phosphorus 4.4 mg/dL (2.5-4.9); Potassium 3.6 mmol/L (3.5-5.1); Troponin High Sensitivity 5.4 pg/mL (<58.9)
[2022-05-26 04:24] VITALS: BMI 42.3
[2022-05-26] MEDS: LEVOTHYROXINE SOD 0.1 MG TAB PO SCH (06:30)
[2022-05-26] MEDS ORDERED: LEVOTHYROXINE SOD 0.1 MG TAB ONE (06:31)
[2022-05-26] MEDS: INSULIN -REGULAR HUMAN 50 UNIT/0.5 ML ML SQ SCH ×4 (07:30→20:29)
[2022-05-26] MEDS ORDERED: INFLUENZA VACCINE (for 6+ mo) 0.5 ML DOSE IMVAC ONE (08:00)
[2022-05-26] MEDS ORDERED: REGADENOSON 0.4 MG/5 ML SYR IV ONE (08:46)
[2022-05-26] MEDS: ENOXAPARIN 40 MG/0.4 ML SQ SCH (09:00)
[2022-05-26] MEDS: ASPIRIN EC 81 MG TAB PO SCH (09:00)
--- NOTE | 2022-05-26 11:38 | RAD REPORT ---
EXAM DESCRIPTION: NM - Rest Stress Cardiac Imaging - 05/26/2022 11:29 am CLINICAL HISTORY: Chest pain. COMPARISON: None. TECHNIQUE: The patient was administered 10.3 mCi of Tc 99m Sestamibi prior to resting SPECT imaging of the heart. The patient was then administered 32.1 MCi of Tc 99m Sestamibi following exercise or ph armacologic stress. Multiplanar SPECT images were reviewed. FINDINGS: Small to moderate area of diminished radiotracer activity involves the anterior left ventr icular myocardium on stress images. This demonstrates normal radiotracer uptake on rest images. Diminished radiotracer activity inferior left ventricular myocardium on rest and stress sequences may be secondary to attenuation from the diaphragm The left ventricular ejection fraction equals 59% IMPRESSION: Small to moderate apparent reversible perfusion defect anterior left ventricular myocar dium may indicate stress-induced ischemia
[2022-05-26] MEDS ORDERED: NALOXONE 0.4 MG/ML VIAL ONE (11:50)
--- NOTE | 2022-05-26 14:23 | EKG ---
Test Date: 2022-05-25 Test Time: 16:33:40 Auto Tester: GUILHERME MEASUREMENT RESULTS: Intervals: Rate: 64 ND: 140 QRSD: 88 QT: 418 QTc: 431 [place]: P: 51 ND: 140 QRS: 57 T: 55 INTERPRETIVE STATEMENTS: Sinus rhythm with premature atrial complexes Otherwise normal ECG Compared to ECG 03/26/2021 09:55:08 Atrial premature complex(es) now present Electronically Signed On 05-26-22 14:22:02 SURVEY RESEARCH MANAGER by Ahmet Rapp
--- NOTE | 2022-05-26 17:35 | P.PN ---
Subjective Date of Service: 05/26/22 Chief Complaint: Chest Pain Patient denies any chest pain today. She reported severe chest pain last night, located in the retrosternal area and radiating to the back. Physical Examination - Vital Signs Temperature: 97.8 F Blood Pressure: 127/62 Pulse: 63 Respirations: 16 Pulse Ox (%): 98 Assessment And Plan - Current Problems (Diagnosis) (1) Chest pain Current Visit: Yes Status: Acute Qualifiers: Chest pain type: unspecified Qualified Code(s): R07.9 - Chest pain, unspecified (2) Hypertension Current Visit: Yes Status: Chronic Qualifiers: Hypertension type: primary hypertension Qualified Code(s): I10 - Essential (primary) hypertension (3) Hypothyroidism Current Visit: Yes Status: Chronic Qualifiers: Hypothyroidism type: postoperative Qualified Code(s): E89.0 - Postprocedural hypothyroidism (4) Type 2 diabetes mellitus Current Visit: Yes Status: Chronic Qualifiers: Diabetes mellitus chcf insulin use: without record cutter use Diabetes mellitus complication status: without complication Qualified Code(s): E11.9 - Type 2 diabetes mellitus without complications - Plan Physical Exam General: Alert, In no apparent distress, Obese Neck: Supple, no elevated JVD. Respiratory: Clear to auscultation bilaterally, Normal air movement Cardiovascular: Regular rate/rhythm, Normal S1 S2, 1+ pitting edema bilateral ankles Gastrointestinal: Normal bowel sounds, No tenderness Musculoskeletal: No tenderness Integumentary: No rashes Neurological: Normal speech, Normal strength at 5/5 x4 extr, Normal affect. Plan Patient reports significant chest pain prior to admission Seen by cardiology. Nuclear stress test today shows mild to moderate reversible ischemia. Cardiology to follow. Continue aspirin. Statin Low-dose beta-pradeep. LDL within normal range. Cardiology to follow Obtain echo. NTG as needed
--- NOTE | 2022-05-26 18:10 | CON ---
Date of Consultation: 05/26/[address] Hernandez on 05/25/2022. I saw the patient on 05/26/2021. Reason For Consultation: Chest pain. History Of Present Illness: Ms. eMza is 52. Has a history of diabetes, anemia, hypothyroidism, a nd hypertension. Never had any cardiac disease as far as she knows. She takes Lasix, Coreg, lisinop ril, and Farxiga. She came in with atypical, sharp, stabbing chest pain in the left anterior wall wi thout any nausea, vomiting, diaphoresis, PND, orthopnea, pedal edema, palpitations, or syncope. Her symptoms were not exertional. She has already ruled out for an PA. EKG and chest x-ray are unremark able. Past Medical History: As stated above. Allergies: NONE. Review of Systems: Negative. Social History: Negative. Family History: Noncontributory. Medications: Listed earlier. Family History: Negative. Physical Examination: Vital Signs: Stable, afebrile. HEENT: Negative. Neck: Supple with no bruit. Chest: Clear. Cardiac: Revealed a regular rhythm and rate. No murmurs, gallops, or rubs. Abdomen: Benign. Extremities: Revealed no clubbing, cyanosis, or edema. Diagnostic Data: Unremarkable. Impression And Plan: Atypical chest pain in a patient with diabetes, hypertension, anemia, and hypot hyroidism. She certainly has multiple cardiac risk factors. I think her pain is musculoskeletal or pleuritic in nature, but I think she is at high risk enough and we should get an echocardiogram and a Lexiscan before she goes home. MIMI/FIORELLA Voice ID: [id number] Report ID: [id number]
[2022-05-26] MEDS: METOPROLOL TAR 25 MG TAB PO SCH (18:51)
[2022-05-26] MEDS: ATORVASTATIN 40 MG TAB PO SCH (20:28)
[2022-05-27] MEDS: LEVOTHYROXINE SOD 0.1 MG TAB PO SCH (06:02)
[2022-05-27] MEDS: METOPROLOL TAR 25 MG TAB PO SCH ×2 (06:02→17:47)
--- NOTE | 2022-05-27 06:59 | ECHO ---
HEIGHT: 5 ft 7 in WEIGHT: 270 lb 0 oz DATE OF STUDY: 05/26/[address]: Christiana Ritchie 2-DIMENSIONAL: YES M.MODE: YES DOPPLER: YES COLOR FLOW: YES TDS: PORTABLE: YES DEFINITY: BUBBLE STUDY: DIAGNOSIS: CHEST PAIN CARDIAC HISTORY: CATHERIZATION: NO SURGERY: NO PROSTHETIC VALVE: NO PACEMAKER: NO MEASUREMENTS (cm) DIASTOLIC (NORMALS) SYSTOLIC (NORMALS) IVSd 1.0 (0.6-1.2) LA Diam 2.6 (1.9-4.0) LVEF 61% LVIDd 3.1 (3.5-5.7) LVIDs 2.1 (2.0-3.5) %FS 32% LVPWd 1.1 (0.6-1.2) Ao Diam 2.6 (2.0-3.7) 2 DIMENSIONAL ASSESSMENT: RIGHT ATRIUM: NORMAL LEFT ATRIUM: NORMAL RIGHT VENTRICLE: NORMAL LEFT VENTRICLE: NORMAL TRICUSPID VALVE: MILD TRICUSPID REGURGITATION MITRAL VALVE: NORMAL PULMONIC VALVE: NORMAL AORTIC VALVE: NORMAL PERICARDIAL EFFUSION: NONE AORTIC ROOT: NORMAL LEFT VENTRICULAR WALL MOTION: NORMAL DOPPLER/COLOR FLOW: MILD TRICUSPID REGURGITATION COMMENTS: 1. NORMAL LEFT VENTRICULAR EJECTION FRACTION 55-60% 2. MILD TRICUSPID REGURGITATION 3. NORMAL WALL MOTION TECHNOLOGIST: JESSICA MOCTEZUMA
--- NOTE | 2022-05-27 07:02 | TREADPHA ---
DX: CHEST PAIN Date of Study: 05/26/2022 Ht: 5' 7 " Wt: 270 lb 0 oz Consulting Physician: OLI MEDICATIONS: ASPIRIN, LIPITOR, LOVENOX, NOVOLIN-R, TYLENOL HISTORY: PHYSICIAL EXAMINATION: RESTING B.P.: 136/88 RESTING H.R.: 65 RESTING EKG: WITHIN NORMAL LIMITS, NORMAL SINUS RHYTHM. PROTOCOL: LEXISCAN EXERCISE TIME: 3:30 B.P. AT PEAK STRESS: 135/83 IMPRESSION: LEXISCAN INJECTED. CARDIOLITE INJECTED PER PROTOCOL. SEE NUCLEAR MEDICINE REPORT. NO SUPRAVENTRICULAR OR VENTRICUALR TACHYCARDIA. NO ARRHYTHMIAS NOTED. NO COMPLAINTS OF HEADACHE, CHEST PAIN OR SHORTNESS OF BREATH. NO EKG CHANGES WITH LEXISCAN.
[2022-05-27] MEDS: INSULIN -REGULAR HUMAN 50 UNIT/0.5 ML ML SQ SCH ×4 (07:30→20:45)
[2022-05-27] MEDS: ASPIRIN EC 81 MG TAB PO SCH (08:47)
[2022-05-27] MEDS: ENOXAPARIN 40 MG/0.4 ML SQ SCH (08:47)
--- NOTE | 2022-05-27 14:43 | P.PN ---
Subjective Date of Service: 05/27/22 Chief Complaint: Chest Pain Patient denies any chest pain today. Reported an episode of chest pain last. No chest pain since this morning. Physical Examination - Vital Signs Temperature: 97.7 F Blood Pressure: 141/76 Pulse: 65 Respirations: 16 Pulse Ox (%): 96 Assessment And Plan - Current Problems (Diagnosis) (1) Chest pain Current Visit: Yes Status: Acute Qualifiers: Chest pain type: unspecified Qualified Code(s): R07.9 - Chest pain, unspecified (2) Hypertension Current Visit: Yes Status: Chronic Qualifiers: Hypertension type: primary hypertension Qualified Code(s): I10 - Essential (primary) hypertension (3) Hypothyroidism Current Visit: Yes Status: Chronic Qualifiers: Hypothyroidism type: postoperative Qualified Code(s): E89.0 - Postprocedural hypothyroidism (4) Type 2 diabetes mellitus Current Visit: Yes Status: Chronic Qualifiers: Diabetes mellitus watermaster insulin use: without shelter use Diabetes mellitus complication status: without complication Qualified Code(s): E11.9 - Type 2 diabetes mellitus without complications - Plan Physical Exam General: Alert, In no apparent distress. Neck: Supple, no elevated JVD. Respiratory: Clear to auscultation bilaterally, Normal air movement Cardiovascular: Regular rate/rhythm, Normal S1 S2, 1+ pitting edema bilateral ankles Gastrointestinal: Normal bowel sounds, No tenderness Musculoskeletal: No tenderness Integumentary: No rashes Neurological: No focal motor deficit. Plan Seen by cardiology. Nuclear stress test today shows mild to moderate reversible ischemia. Cardiology recommended cardiac cath Continue aspirin, statin and beta-pradeep Echocardiogram results reviewed and will call normal EF and normal wall motion. NTG as needed. Continue other home medications. Physician Review: Patient Assessed, Agree with Above Assessment and Plan
[2022-05-27] MEDS ORDERED: FUROSEMIDE 40 MG TABLET PO SCH (15:00)
[2022-05-27 16:27] LABS: Protime INR 1.06
[2022-05-27] MEDS: ATORVASTATIN 40 MG TAB PO SCH (20:44)
[2022-05-27] MEDS ORDERED: HOME MED 1 EA UNK (Magnesium Oxide [Magnesium] 250 MG Tablet) PO SCH (21:00)
[2022-05-27] MEDS ORDERED: DOCUSATE NA 100 MG CAP PO PRN (21:30)
[2022-05-27 23:42] LABS: Specific Gravity > 1.030 (1.005-1.030); Urine Bacteria >50 /HPF (<20); Urine Bilirubin NEGATIVE (Negative); Urine Blood Negative (Negative); Urine Clarity Turbid (Clear); Urine Color Yellow (Yellow); Urine Glucose 4+ (Over) (Negative); Urine Mucus Slight /HPF (None Seen); Urine Protein 1+ (Negative); Urine Urobilinogen Normal (Normal); Urine pH 7.5 (5.0-7.0)
[2022-05-28 04:20] LABS: Absolute Lymphocytes (CBC) 2.4 K/uL (0.7-4.9); Hematocrit 35.3 % (36.0-45.0); Lymphocytes % 29.3 % (15.3-44.8); MCV 84.2 fL (80-100); MPV 8.8 fL (7.6-11.3); RBC Red Blood Cell Count 4.19 M/uL (3.86-4.86)
[2022-05-28 04:30] LABS: Potassium 3.6 mmol/L (3.5-5.1)
[2022-05-28] MEDS: METOPROLOL TAR 25 MG TAB PO SCH ×2 (05:33→20:34)
[2022-05-28] MEDS: ASPIRIN EC 81 MG TAB PO SCH (05:33)
[2022-05-28] MEDS: LEVOTHYROXINE SOD 0.1 MG TAB PO SCH (05:36)
[2022-05-28] MEDS ORDERED: lisinopriL 20 MG TAB PO SCH (09:00)
[2022-05-28] MEDS ORDERED: HOME MED 1 EA UNK (Lisinopril [Lisinopril] 40 MG Tablet) PO SCH (09:00)
[2022-05-28] MEDS ORDERED: HOME MED 1 EA UNK (Potassium Chloride [Potassium Chloride] 20 MEQ Tab.Er.Prt) PO SCH (09:00)
[2022-05-28] MEDS ORDERED: POTASSIUM CL SA 10 MEQ TAB PO SCH (09:00)
[2022-05-28] MEDS ORDERED: FUROSEMIDE 40 MG TABLET PO SCH (09:00)
[2022-05-28] MEDS ORDERED: NA CHLORIDE 0.9% 500 ML ONE ×2 (13:56→14:23)
[2022-05-28] MEDS ORDERED: LIDOCAINE 1% 20 ML MDV ONE (14:16)
[2022-05-28] MEDS ORDERED: HEPA 1000U/500MLS 2,000 UNIT/1,000 ML BAG IV ONE (14:16)
[2022-05-28] MEDS ORDERED: HEPARIN 5000 UNIT/ML 1 ML VIAL ONE (14:17)
[2022-05-28] MEDS ORDERED: VERAPAMIL HCL 10 MG/4 ML VIAL IV ONE (14:17)
[2022-05-28] MEDS ORDERED: MIDAZOLAM HCL 2 MG/2 ML INJ ONE (14:17)
[2022-05-28] MEDS ORDERED: FENTANYL CITR 100 MCG/2 ML ONE (14:17)
[2022-05-28] MEDS ORDERED: CLOPIDOGREL 75 MG TABLET ONE (14:17)
[2022-05-28] MEDS ORDERED: HEPARIN 10,000 UNIT/10 ML VIAL IV ONE (14:18)
[2022-05-28] MEDS ORDERED: ASPIRIN 325 MG TAB ONE (14:18)
[2022-05-28] MEDS ORDERED: TICAGRELOR 90 MG TABLET PO ONE (14:18)
[2022-05-28] MEDS ORDERED: ATROPINE SULF 1 MG/10 ML SYR IV ONE (14:19)
[2022-05-28 16:24] VITALS: O2SAT 98
--- NOTE | 2022-05-28 17:49 | OP ---
Date of Procedure: 05/28/2022 Surgeon: GENNY BAIRD Procedures Performed: 1.Selective coronary angiogram. 2.Left heart catheterization. Indication: Chest pain with abnormal stress test. Access: Right femoral artery 6-Hungarian, closed with 6-Hungarian Angio-Seal. Complications: None. Bleeding: Less than 20 mL. Anesthesia: Total sedation time was 20 minutes. Description Of Procedure: After risks, benefits, and alternatives were explained, the patient agreed to the procedure and signed informed consent. Patient was brought in to the cardiac catheterization laboratory, prepped and draped in sterile fashion. Then, I accessed right femoral artery using micr opuncture kit, fluoroscopy, and ultrasound guidance in place. The 6-Hungarian Shelby sheath and took a 6-Hungarian JL4 catheter into the aortic root over a J-wire, engaged left main, took standard views, t hen I exchanged for a 6-Hungarian JR4 catheter across the aortic valve. Using this catheter, measured t he LVEDP and pullback not recorded any gradient and also engaged the RCA and took standard views and then removed the catheter and the sheath and placed a 6-Hungarian Angio-Seal for closure with good hemos tasis. Findings: 1.Left main largely normal. 2.LAD; large and normal. Normal diagonal branches. 3.Left circumflex, it is a large vessel and normal. 4.RCA; large and dominant and normal. 5.Borderline elevated LVEDP between 15 mm 15-20 mmHg. Conclusion: 1.Normal coronary arteries. 2.Borderline elevated LVEDP. Recommendation: Medical management and diuretics. SR/MODL Voice ID: [id number] Report ID: [id number]
--- NOTE | 2022-05-28 18:33 | P.DS ---
Admission Date: 05/26/22 Discharge Date: 05/28/22 Disposition: ROUTINE DISCHARGE Discharge Condition: FAIR Reason for Admission: Chest Pain - Problems (1) Chest pain Current Visit: Yes Status: Acute Qualifiers: Chest pain type: unspecified Qualified Code(s): R07.9 - Chest pain, unspecified (2) Hypertension Current Visit: Yes Status: Chronic Qualifiers: Hypertension type: primary hypertension Qualified Code(s): I10 - Essential (primary) hypertension (3) Hypothyroidism Current Visit: Yes Status: Chronic Qualifiers: Hypothyroidism type: postoperative Qualified Code(s): E89.0 - Postprocedural hypothyroidism (4) Type 2 diabetes mellitus Current Visit: Yes Status: Chronic Qualifiers: Diabetes mellitus detention insulin use: without termite control technician use Diabetes mellitus complication status: without complication Qualified Code(s): E11.9 - Type 2 diabetes mellitus without complications (5) Acute on chronic diastolic heart failure Current Visit: Yes Status: Acute Brief History of Present Illness: Patient is a 52-year-old female with past medical history of hypertension, noninsulin-dependent type 2 diabetes, hypothyroidism, hyperlipidemia, and anemia who presented to the emergency department with complaints of chest pain and shortness of breath. Patient states that she had an upper respiratory infection the past week and was taking amoxicillin. She states that she has had some mild shortness of breath associated with it and today started experiencing some chest burning and heaviness. The shortness of breath and chest burning improved in the emergency department with Protonix however her chest heaviness persisted. Her labs and EKG were unremarkable. Chest x-ray showed viral process versus CHF. Patient does take Lasix but denied history of CHF. 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 She was placed under observation for further evaluation and management. Hospital Course: Patient admitted to the medical floor, started on aspirin and treated with oral Lasix. Troponin trended negative. Patient seen and evaluated by cardiology who recommended stress test. Stress test showed reversible induced ischemia. Cardiac catheterization was performed which was unremarkable, no significant coronary artery vessel occlusion to warrant percutaneous intervention. Diastolic heart failure suspected. Cardiology recommended medical management and diuretics. ACS has been ruled out. Patient vitals are stable and she is deemed stable for discharge. Vital Signs/Physical Exam: Temp Pulse Resp BP Pulse Ox 97.3 F 63 19 113/63 98 05/28/22 12:00 05/28/22 15:40 05/28/22 15:40 05/28/22 15:40 05/28/22 12:00 General: Alert, In no apparent distress, Oriented x3, Obese HEENT: Mucous membr. moist/pink Neck: JVD not distended Respiratory: Clear to auscultation bilaterally, Normal air movement Cardiovascular: No edema, Regular rate/rhythm, Normal S1 S2 Gastrointestinal: Soft and benign, Non-distended Musculoskeletal: No swelling Integumentary: No rashes, No cyanosis Neurological: Normal strength at 5/5 x4 extr Laboratory Data at Discharge: WBC 8.10 K/uL (4.3-10.9) 05/28/22 03:40 Hgb 11.9 g/dL (12.0-15.0) L 05/28/22 03:40 Hct 35.3 % (36.0-45.0) L 05/28/22 03:40 Plt Count 213 K/uL (152-406) 05/28/22 03:40 PT 11.7 SECONDS (9.5-12.5) 05/27/22 16:08 INR 1.06 05/27/22 16:08 APTT 35.9 SECONDS (24.3-36.9) 05/27/22 16:08 Sodium 139 mmol/L (136-145) 05/28/22 03:40 Potassium 3.6 mmol/L (3.5-5.1) 05/28/22 03:40 BUN 15 mg/dL (7-18) 05/28/22 03:40 Creatinine 0.64 mg/dL (0.55-1.02) 05/28/22 03:40 Glucose 112 mg/dL (74-106) H 05/28/22 03:40 Phosphorus 4.4 mg/dL (2.5-4.9) 05/26/22 02:10 Magnesium 2.1 mg/dL (1.6-2.4) 05/26/22 02:10 Triglycerides 97 mg/dL (<150) 05/26/22 02:10 Cholesterol 136 mg/dL (<200) 05/26/22 02:10 HDL Cholesterol 49 mg/dL (40-60) 05/26/22 02:10 Cholesterol/HDL Ratio 2.78 05/26/22 02:10 Home Medications: Cyanocobalamin (Vitamin B-12) [Vitamin B-12] 1,000 mcg PO DAILY #90 capsule 03/25/18 Ferrous Sulfate [Ferrous Sulfate*] 325 mg PO TID #90 tab 03/25/18 Levothyroxine [Synthroid*] 1 tab PO [id number] 03/25/18 Carvedilol [Coreg] 1 tab PO BID 05/27/22 Dapagliflozin Propanediol [Farxiga] 1 tab PO [id number] 05/27/22 Furosemide [Lasix*] 2 tab PO DAILY 05/27/22 Magnesium Oxide [Magnesium] 1 tab PO BID 05/27/22 Potassium Chloride 1 tab PO DAILY 05/27/22 lisinopriL [Lisinopril] 1 tab PO DAILY 05/27/22 Aspirin [Aspirin EC 81 MG] 81 mg PO DAILY #30 tab 05/28/22 Atorvastatin Calcium [Lipitor] 20 mg PO BEDTIME #30 tab 05/28/22 New Medications: Aspirin [Aspirin EC 81 MG] 81 mg PO DAILY #30 tab Atorvastatin Calcium [Lipitor] 20 mg PO BEDTIME #30 tab Diet: AHA Activity: Ad alex Time spent managing pt's care (in minutes): 33
[2022-05-28] MEDS: ATORVASTATIN 40 MG TAB PO SCH (20:34)
[2022-05-28] MEDS: INSULIN -REGULAR HUMAN 50 UNIT/0.5 ML ML SQ SCH (20:35)
[2022-05-28 20:57] VITALS: BP 125/62
[2022-05-28] MEDS ORDERED: INFLUENZA VACCINE (for 6+ mo) 0.5 ML DOSE IMVAC ONE (20:57)
[2022-05-28] MEDS ORDERED: PNEUMOCOCCAL VACCINE 0.5 ML IMVAC ONE (20:57)
[2022-05-28 21:23] VITALS: TEMP 97.8
== END 2022-05-28 21:00 | disposition home or self-care (01) | DRG 286 ==
LOC: ER 15:51 → ERHOLD 20:27 → 4TH 05-26 14:57 → OBSVTOIN 05-26 19:56
PROVIDERS: ADMIT Internal Medicine; ATTEND Internal Medicine
PROC: 4A023N7 Measurement of Cardiac Sampling and Pressure, Left Heart, Percutaneous Approach (ICD-10-PCS; principal; 2022-05-28)
PROC: B2111ZZ Fluoroscopy of Multiple Coronary Arteries using Low Osmolar Contrast (ICD-10-PCS; 2022-05-28)
DX: I11.0 Hypertensive heart disease with heart failure (principal); I50.33 Acute on chronic diastolic (congestive) heart failure; Z68.41 Body mass index [BMI] 40.0-44.9, adult; E66.9 Obesity, unspecified; E89.0 Postprocedural hypothyroidism; E78.5 Hyperlipidemia, unspecified; D64.9 Anemia, unspecified; E11.9 Type 2 diabetes mellitus without complications; Z23 Encounter for immunization; Z79.01 Long term (current) use of anticoagulants; Z98.51 Tubal ligation status; Z90.49 Acquired absence of other specified parts of digestive tract; Z79.890 Hormone replacement therapy; Z79.899 Other long term (current) drug therapy; Z20.822 Contact with and (suspected) exposure to COVID-19
CPT/HCPCS: 36415; 71045; 76937; 78452; 80048; 80061; 81001; 82947; 83036; 83735; 83880; 84100; 84443; 84484; 85025; 85610; 85730; 86140; 86850; 86900; 86901; 87811; 90471; 90732; 93005; 93017; 93306; 93458; 96374; 99285; A9500; C1760; C1893; C9113; G0269; G0378; J0461; J1644; J1650; J2001; J2250; J2310; J2405; J2785; J3010; J7040; Q2035; Q9966

== ENCOUNTER 2022-09-25 05:04 | Emergency (ER) | payer SELFPAY ==
--- OUTSIDE RECORDS SUMMARY | 2022-09-25 05:08 | XMS REPORT | Continuity of Care Document ---
:1970 Author Organization [facility] t Address [address] [facility] [address] [place] [address] Care Team Providers Name Role Phone CRANE, OLEG Sloan Primary Care Physician Unavailable Subha LAVARADO Attending Clinician Unavailable Subha Oneal Attending Clinician Doctor Unassigned, [place] Attending Clinician Unavailable Subha ALVARADO Admitting Clinician [...] submucosal submucosal 02-11 it y of 00:00: [place] 00 Medical Branch Contracept Contracept Disease Active U nicole oleg oleg 12-10 ity of management management 00:00: [place] 00 Medical Branch Hypothyroi Hypothyroi Disease Active Overview : Univers dism dism 01-19 Formattin ity of 00:00: g of this [place] 00 note Medical might be Branch different from the original. 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 Medical records received. [facility]- 06/30/2012 . Impressio n: small uterine fibroids. Small left ovarian/p arovarian cyst. A very small fibroid is seen in the anterior mural location left side fundal region of the uterus. A slightly larger more posterior ly located fundal myometria l fibroid is present measuring 17mm.[facility] multiple fibroids, submucosa l fibroid see scanned records History of History of Disease Active U nivers tubal tubal 4-24 ity of ligation ligation 00:00: [place] 00 Medical Branch Asymptomat Asymptomat Disease Active U nivers ic ic 4-24 ity of varicose varicose 00:00: [place] veins veins Medical Branch Morbid Morbid Disease Active Univers obesity obesity 4-24 ity of 00:00: [place] [address] Medical Branch Excessive Excessive Disease Active Uni vers or or 4-24 ity of frequent frequent 00:00: [place] menstruati menstruati 00 Me dical on on Branch Essential Essential Disease Active Overview: Univers hypertensi hypertensi 4-24 Formattin ity of on on 00:00: g of this 00 note Medical might be Branch different from the original. 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 (event) Branch Tobacco use and 2018-04-14 2018-04-14 Never used Universit y of exposure 00:00:00 00:00:00 [facility] Alcohol intake 2018-04-14 2018-04-14 Current University of 00:00:00 00:00:00 non-drinker of [facility] alcohol Branch (finding) Sex Ass[birth year] At [birth year] Universit y of 00:00:00 00:00:00 [facility] Smoking Status Start Date Stop Date Source Never smoker [facility] Medications Ordered Filled Start Stop Current [...] dose, On Branch 06/09/21 at 1715, Routine
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 lisinopril 2017-05 Yes 10mg Take 10 mg U nivers 10 mg 1-29 by mouth ity of tablet 16:59: daily. [address] HYDROCHLORO 2017-05 Yes Take by Uni vers THIAZIDE 1-29 mouth. ity of ORAL 16:59: [address] lisinopril 2017-05 Yes 10mg Take 10 mg U nivers 10 mg 1-29 by mouth ity of tablet 16:59: daily. [address] HYDROCHLORO 2017-05 Yes Take by Uni vers THIAZIDE 1-29 mouth. ity of ORAL 16:59: [address] lisinopril 2017-05 Yes 10mg Take 10 mg U nivers 10 mg 1-29 by mouth ity of tablet 10:59: daily. [address] HYDROCHLORO 2017-05 Yes Take by Uni vers THIAZIDE 1-29 mouth. ity of ORAL 10:59: [address] lisinopril 2017-05 Yes 10mg Take 10 mg U nivers 10 mg 1-29 by mouth ity of tablet 10:59: daily. [place] 14 Medical Branch HYDROCHLORO 2017-05 Yes Take by Uni vers THIAZIDE 1-29 mouth. ity of ORAL 10:59: [place] 14 [facility] Branch Levothyroxi 2014-05 Yes [id number] 1{tbl} Take 1 Tab Univers ne 0-19 by mouth ity of (TIROSINT) 00:00: daily. [place] 50 mcg Cap 00 Medical Branch Levothyroxi 2014-05 Yes [id number] 1{tbl} Take 1 Tab Univers ne 0-19 by mouth ity of (TIROSINT) 00:00: daily. [place] 50 mcg Cap 00 Medical Branch Levothyroxi 2014-05 Yes [id number] 1{tbl} Take 1 Tab Univers ne 0-19 by mouth ity of (TIROSINT) 00:00: daily. [place] 50 mcg Cap 00 Medical Branch Levothyroxi 2014-05 Yes [id number] 1{tbl} Take 1 Tab Univers ne 0-19 by mouth ity of (TIROSINT) 00:00: daily. [place] 50 mcg Cap 00 [facility] Immunizations Ordered Filled Immunization Date Status Comments [facility] e Immunization Name Name Td 2009-09-07 Completed University 00:00:00 [facility] Td 2009-09-07 Completed University 00:00:00 [facility] Td 2009-09-07 Completed University 00:00:00 [facility] Td 2009-09-07 Completed [facility] 00:00:00 [facility] Vital Signs Vital Name Observation Time Observation Value Comments Source Systolic blood 2021-06-09 23:00:00 119 mm[Hg] Univer sity of pressure [facility] Diastolic blood 2021-06-09 23:00:00 71 mm[Hg] Unive rsity of pressure [facility] Heart rate 2021-06-09 23:00:00 60 /min [facility] Respiratory rate 2021-06-09 23:00:00 14 /min [facility] Oxygen saturation in 2021-06-09 23:00:00 100 /min [facility] Arterial blood by [facility] Pulse oximetry Branch Body temperature 2021-06-09 20:44:00 36.22 Kierra [facility] [facility] Body height 2021-06-09 20:44:00 170.2 cm [facility] Body weight 2021-06-09 20:44:00 122.471 kg [facility] BMI 2021-06-09 20:44:00 42.29 kg/m2 [facility] Procedures Procedure Date / Time Performed Performing Clinician Sourc e XR CHEST 1 VW 2021-06-09 21:13:09 Subha Alvarado [facility] COVID-19 (ID NOW RAPID 2021-06-09 21:07:00 Subha Alvarado [facility] TESTING) Medical Branch MAGNESIUM 2021-06-09 21:07:00 Subha Alvarado [facility] TROPONIN I 2021-06-09 21:07:00 Subha Alvarado [facility] COMP. METABOLIC PANEL 2021-06-09 21:07:00 Subha Alvarado [facility] ([id number]) [facility] Center Clinic CBC WITH DIFF 2021-06-09 21:07:00 Subha Alvarado [facility] URINALYSIS 2021-06-09 21:07:00 Subha Alvarado Tasneem [facility] N-TERMINAL PRO-BNP 2021-06-09 21:07:00 Subha Alvarado [facility] NOTICE OF PRIVACY 2021-06-09 20:35:37 Doctor Unassigned, No Univ [facility] PRACTICES Name Medical Branch CONSENT/REFUSAL FOR 2021-06-09 20:35:10 Doctor Unassigned, No [facility] AND Name [facility] TREATMENT REFERRAL- 2020-12-18 05:01:00 Doctor Unassigned, No [facility] REQUEST/RESPONSE Name Medical Branch REFERRAL- 2020-11-11 05:01:00 Doctor Unassigned, No [facility] REQUEST/RESPONSE Name Medical Branch Encounters Start End Encounter Admission Attending Care Care Encounter Source Date/Time Date/Time Type Type Clinicians Facility Department ID 2022-09-10 2022-09-10 Outpatient [facility] [id number] [place] 13:21:53 13:21:53 [id number] [facility] 2022-09-08 2022-09-08 Outpatient [facility] [id number] [place] 13:20:57 13:20:57 [id number] [facility] 2022-08-27 2022-08-27 Outpatient [facility] [id number] [place] 11:30:50 11:30:50 0413 [facility] [place] 2022-07-16 2022-07-16 Outpatient [facility] [id number] [place] 13:33:58 13:33:58 0302 [facility] [place] 2022-07-08 2022-07-08 Outpatient [facility] [id number] [place] 13:30:54 13:30:54 0222 [facility] [place] 2022-06-19 2022-06-19 Outpatient [facility]FA [id number] [place] 14:49:41 14:49:41 0203 [facility] [place] 2022-05-22 2022-05-22 Outpatient [facility] [id number] [place] 14:48:08 14:48:08 0106 [facility] [place] 2022-05-21 2022-05-21 Outpatient [facility] SFA [id number] [place] 15:07:23 15:07:23 0105 [facility] [place] 2022-04-25 2022-04-25 Outpatient [facility] SFA [id number] [place] 10:50:43 10:50:43 1210 [facility] [place] 2022-04-24 2022-04-24 Outpatient [facility] SFA [id number] [place] 16:44:16 16:44:16 1209 [facility] 2021-06-09 2021-06-09 Emergency X Subha ALVARADO [facility] ERT [id number] Univers 14:48:00 17:18:00 ity of [facility] 2021-06-09 2021-06-09 Emergency Subha Alvarado [facility] [id number] Univers 14:48:00 17:18:00 Tasneem HUA 350.1.13.10 i ty of [place] 4.2.7.2.686 [place] [facility] [id number] [facility] stefan 084 Branch 2021-06-09 2021-06-09 Orders Doctor HENDERSON [id number] Univers 00:00:00 00:00:00 Only Unassigned, VANDA 350.1.13.10 ity of [place] [facility] 4.2.7.2.686 Johnnie [id number] Medi stefan 009 Branch 2020-12-18 2020-12-18 Orders Doctor BEATRIZ [id number] Univers 00:00:00 00:00:00 Only Unassigned, VANDA 350.1.13.10 ity of [place] [facility] 4.2.7.2.686 Johnnie as [id number] [place] [address] Branch 2020-11-11 2020-11-11 Orders Doctor BEATRIZ [id number] 00:00:00 00:00:00 Only Unassigned, VANDA 350.1.13.10 [place] [facility] 4.2.7.2.686 [id number] 009 2020-11-11 2020-11-11 Orders Doctor BEATRIZ Johnson.[id number] Univers 00:00:00 00:00:00 Only Unassigned, VANDA 350.1.13.10 ity of [place] [facility] 4.2.7.2.686 Johnnie as [id number] [place] [address] Branch Results Test Description Test Time Test Comments Results Result Comments Source VAGINAL PATHOGENS DNA PANEL 2022-09-09 15:10:10 Test Item Value Reference Range Interpretation Comme nts SAVANNA SPECIES (test code NEGATIVE NEGATIVE = ) G. VAGINALIS (test code = NEGATIVE NEGATIVE ) T. VAGINALIS (test code = NEGATIVE NEGATIVE N ote: The BD Affirm VPIII Microbial ) Identification Testis a DNA probe test intended for e in the detectionand identification of Savanna species, Gardnerellavagi nalis and Trichomonas vaginalis nucle ic acid. [facility] has important patho logy staff changes effective 07/15. New pathology staff will provide uninterrupted, excellent patient care and clinical co nsultation. See URL: [email or web address]. UNLESS OTHERWISE INDIC ATED, ALL TESTING PERFORMED AT [facility], [facility]. [address] [place] [address] 4 [employer] C[employer] THERAPIST: ALEX RIVERA M.D. [place] NUMBER [id number] [facility] [place]. [id number] TSH, THIRD [id number] 06:59:00 Test Item Value Reference Range Interpretation Comments TSH, THIRD GENERATION (test code 1.650 UIU/ML 0.400-4.100 = 2821) FREE T4 (THYROXINE)2022-05-23 06:59:00 Test Item Value Reference Range Interpretation Comments FREE T4 (THYROXINE) (test code = 1.33 NG/DL 0.80-1.90 2822) [id number] 06:40:13 Test Item Value Reference Range Interpretation Comments NT-proBNP <50 PG/ML SEE BELOW If NT-ProBNP i s less than 300 (test code = PG/ML, heart fa ilure is unlikely 08086) for allages. Age............ .....Heart Failure Likely <50 Years.......... .>=450 PG/ML 50-75 Years.... .....>=900 PG/ML > 75 Years..... .....>=1800 PG/ML Methodology: [employer] inescense Immunoassay UNL ESS OTHERWISE INDICATED, ALL TESTING PERFORMED ATCLINICAL PATH [employer], [facility]. [address] [place] [address] 4 FOSTER CARE THERAPIST: Stephanie COLEMAN [id number] CAP ACCREDITATION N O. [id number] HEMOGLOBIN [id number] 04:25:14 Test Item Value Reference Range Interpretation Comments HEMOGLOBIN A1c (test code = 12941) 6.0 % 4.2-5.6 H COMPREHENSIVE METABOLIC [id number] 04:05:00 Test Item Value Reference Range Interpretation Comments GLUCOSE (test code = 112 MG/DL 70-99 H 2216) BUN (test code = 12 MG/DL -20 2207) CREATININE (test 0.81 MG/DL 0.60-1.30 code = 2214) eGFR (2020 CKD-EPI) 87 ML/MIN/1.73 >60 (test code = 26920) CALC BUN/CREAT (test 15 RATIO 6-28 code = 2235) SODIUM (test code = 140 MEQ/L 649-414 0713) POTASSIUM (test code 4.4 MEQ/L 3.5-5.4 = [...] code = 13 U/L 5-40 2218) LIPID [id number] 04:05:00 Test Item Value Reference Range Interpretation [...] MOREINFORMATION , SEE CLIENT ANNOUNCE MENT AT [email or web address] RISK RATIO LDL/HDL 1.40 RATIO <3.22 (test code = 2238) CULTURE, [id number] 08:33:49SPECIMEN NUMBER: [id number] CULTURE, URINE SPECIMEN NUMBER: [id number] SPECIMEN COMMENT: URINE SOURCE:URINE REPORT STATUS: FINAL FINAL REPORT: 12/20/2021 10-50,000 CFU/ML UROGENITAL TWAN PRESENT NO COMM ON PATHOGENS UNLESS OTHERWISE INDICATED, ALL TESTING PERFORMED [facility] [address] [place] [address] [employer] C[employer] THERAPIST: Stephanie COLEMAN NUMBER [id number] [place]. [id number] CULTURE, [id number] 12:12:01SPECIMEN NUMBER: [id number] CULTURE, URINE SPECIMEN NUMBER: [id number] SPECIMEN COMMENT: URINE SOURCE: URINE REPORT STATUS: FINAL ISOLATE NUMBER 1: ORGANISM: 11/26/2021 >100,000 CFU/ML GRAM NEGATIVE B ACILLI IDENTIFICATION: 11/27/2021 ESCHERICHIA COLI E. COLI AMOXICILLIN/CA SENSITIVE <=8/4AMPICILLIN SENSITIVE <=8CEFAZOLIN SENSITIVE <=2CEFTRIAXONE SENSITIVE <=1CIPROFLOXACIN SENSITIVE <=1LEVOFLOXACIN SENSITIVE <=2NITROFURANTOIN SENSITIVE <=32PIP/TAZOBAC SENSITIVE <=16TETRACYCLINE SENSITIVE <=4TOBRAMYCIN SENSITIVE <=4TRIMETH/SULFA SENSITIVE <=2/38 NOTE: NUMBERS DISPLAYED REPRESENT MINIMUM INHIBITORY CONCENTRATION (BRUNO) WHICH IS EXPRESSED IN MCG/ML. UNLESS OTHERWISE INDICATED, ALL TESTING PERFORMED [facility] [address] [place] [address] F[employer]ER CARE THERAPIST: STEFANIE SALINAS M.D. CLIA NUMBER [id number] [place]. [id number] + FREE T4 [id number] 06:27:42 Test Item Value Reference Range Interpretation Comments TSH, THIRD 1.180 UIU/ML 0.400-4.100 GENERATION (test code = 2821) FREE T4 (THYROXINE) 1.35 NG/DL 0.80-1.90 UNLESS OTHERWISE (test code = 2823) INDICATED , ALL TESTING PERFORMED [facility], [place]. [address] [place] [address] [facility] DIRECTOR: STEFANIE SALINAS M.D. CLIA NUMBER [id number] CAP ACCREDITATION N O. [id number] HEMOGLOBIN [id number] 06:24:07 Test Item Value Reference Range Interpretation Comments HEMOGLOBIN A1c (test code = 15193) 5.8 % 4.2-5.6 H LIPID [id number] 05:53:02 Test Item Value Reference Range Interpretation [...] MOREINFORMATION , SEE CLIENT ANNOUNCE MENT AT [email or web address] RISK RATIO LDL/HDL 1.52 RATIO <3.22 (test code = 2238) COMPREHENSIVE METABOLIC [id number] 05:53:02 Test Item Value Reference Range Interpretation Comments GLUCOSE (test code = 101 MG/DL 70-99 H 2216) BUN (test code = 14 MG/DL 6-20 2207) CREATININE (test 0.62 MG/DL 0.60-1.30 code = 2214) eGFR (2020 CKD-EPI) 107 >60 (test code = 11015) ML/MIN/1.73 CALC BUN/CREAT (test 23 RATIO 6-28 code = 2235) SODIUM (test code = 136 MEQ/L 985-222 9197) POTASSIUM (test code 3.7 MEQ/L 3.5-5.4 = 222) CHLORIDE (test code 103 MEQ/L 95-107 = 5) CARBON DIOXIDE (test 19 MEQ/L 19-31 code [...] message] (test code = 2207) The syste [employer] which generated this result transmit rafa reference range : <=1.2. The refe rence range was not u sed to interpret th is result as normal/abnormal . ALKALINE PHOSPHATASE 85 U/L 40-132 (test code = 2204) AST (test code = 16 U/L 9-40 2217) ALT (test code = 13 U/L 5-40 2218) TROPONIN [id number] 21:49:50 Test Item Value Reference Interpretation Comments Range TROPONIN I (test 0.003 ng/mL See_Comment [Automated code = 9273504963) message] The system which generated this result [...] biotin. Lab Interpretation Normal (test code = 59523-6) [facility] [id number] 21:46:48 Test Item Value Reference Range Interpretation Comments NT-proBNP (test code 39 pg/mL See_Comment [Autom ated = 5967275654) message] The system which generated this result transmitted reference range : <=125. The reference range was not used to interpret this result as normal/abnormal . MARRY (test code = MARRY) Biotin has been reported to cause a negative bias, interpret results relative to patient's use of biotin. Lab Interpretation Normal (test code = 84712-4) [id number] 21:38:09 Test Item Value Reference Range Interpretation Comments MAGNESIUM (test code = 5022023408) 1.6 mg/dL 1.7-2.4 L Lab Interpretation (test code = Abnormal 00374-0) [facility] PAN[facility] (76097)2021-06-09 21:37:49 Test Item Value Reference Range Interpretation Comments NA (test code = 137 mmol/L 135-145 3537715054) K (test code = 3.7 mmol/L 3.5-5.0 8538027019) CL (test code = 100 mmol/L 98-108 3029230684) CO2 TOTAL (test code = 26 mmol/L 23-31 6276047802) AGAP (test code = 2-16 6367626232) BUN (test code = 15 mg/dL 7-23 3023016444) GLUCOSE (test code = 113 mg/dL 70-110 H 6570554166) CREATININE (test code = 0.69 mg/dL 0.50-1.04 2763381993) TOTAL BILI (test code = 0.6 mg/dL 0.1-1.7 6904153205) CALCIUM (test code = 9.3 mg/dL 8.6-10.6 5592155083) T PROTEIN (test code = 8.9 g/dL 6.3-8.2 H 2890121977) ALBUMIN (test code = 5.0 g/dL 3.5-5.0 5151908602) ALK PHOS (test code = 78 U/L 34-122 7510386854) ALTv (test code = 18 U/L 5-35 1742-6) AST(SGOT) (test code = 25 U/L 13-40 0886174590) eGFR (test code = mL/min/1.73m2 1572677050) MARRY (test code = MARRY) Association of [...] tests). Lab Interpretation Abnormal (test code = 84132-8) [facility] WITH [id number] 21:20:43 Test Item Value Reference Range Interpretation Comments WBC (test code = See_Comment [Automated message] 7890-2) The system [employer] generated this result transmitted ref erence range: 4.30 - 1 1.10 10*3/?L. The re ference range was not u sed to interpret this result as normal/abnor mal. RBC (test code = See_Comment [Automated message] 129-8) The system [employer] generated this result transmitted ref erence range: [...] RDW-SD (test code 40.2 fL 39.0-49.9 = 21440-0) RDW-CV (test code 13.2 % 12.0-15.5 = 788-0) PLT (test code = See_Comment [Automated message] 747-3) The system [employer] generated this result transmitted ref erence range: 166 - 35 8 10*3/?L. The re ference range was not u sed to interpret this result as normal/abnor mal. MPV (test code = 10.8 fL 9.5-12.9 55065-8) NRBC/100 WBC (test See_Comment [Automat ed message] code = 2401810046) The syste m which generated this result transmitted ref erence range: 0.0 - 10 .0 /100 WBCs. The refer ence range was not u sed to interpret this result as normal/abnor mal. NRBC x10^3 (test <0.01 See_Comment [Automated message] code = 7428073757) The syste m which generated this result transmitted ref erence range: 10*3/?L. The reference range was not used to interpr et this result as normal/abnormal . GRAN MAT (NEUT) % 69.3 % (test code = 770-8) IMM GRAN % (test 0.40 % code = 3621991323) LYMPH % (test code 23.1 % = 736-9) MONO % (test code 5.3 % = 5905-5) EOS % (test code = 1.5 % 713-8) BASO % (test code 0.4 % = 706-2) GRAN MAT 6.96 10*3/uL 1.88-7.09 x10^3(ANC) (test code = 7259368216) IMM GRAN x10^3 0.04 10*3/uL 0.00-0.06 (test code = 0478400722) LYMPH x10^3 (test 2.32 10*3/uL 1.32-3.29 code = 731-0) MONO x10^3 (test 0.53 10*3/uL 0.33-0.92 code = 742-7) EOS x10^3 (test 0.15 10*3/uL 0.03-0.39 code = 711-2) BASO x10^3 (test 0.04 10*3/uL 0.01-0.07 code = 704-7) [facility] ([facility]OVID-[facility]), RT-PCR/[id number] 15:38:42 Test Item Value Reference Interpretation Comments Range SARS-CoV-2 NEGATIVE SEE NOTE SARS-CoV-2 RNA NOT INTERPRETATION DETECTEDNegat oleg (test code = 80572) results do not preclude SARS-CoV-2 infe ction [...] code = [place]: [place] [address]) [place] l-Time RT-PCR. The exp ected result or [...] provided by met hod given in report:https:// [email or web address]/clinici ans/clie nt-communicatio ns/ Alternatively, see downloadable PD F fact sheet at:[email or web address]://[email or web address]. [email or web address]-RT -PCR UNLESS OTHERWIS E INDICATED, ALL TESTING PERFORMED [facility] [employer] [address] [place] [address] 3374 4 LABORATORY DIRE CTOR: STEFANIE OATES M.D. CLIA NUMBER [id number] [place] [id number]"
[2022-09-25 05:47] LABS: Absolute Lymphocytes (CBC) 1.8 K/uL (0.7-4.9); Hematocrit 38.8 % (36.0-45.0); Lymphocytes % 23.2 % (15.3-44.8); MCV 83.4 fL (80-100); MPV 8.9 fL (7.6-11.3); RBC Red Blood Cell Count 4.66 M/uL (3.86-4.86)
[2022-09-25 06:00] LABS: Protime INR 1.15
[2022-09-25 06:11] LABS: Potassium 3.3 mEq/L (3.5-5.1)
--- NOTE | 2022-09-25 07:01 | ER ---
Nurse's Notes [facility] Name: Maryjane Meza Age: 52 yrs Sex: Female : 1970 Arrival Date: 09/25/2022 Time: 05:04 Bed 5 Private MD: Diagnosis: Cellulitis of neck Presentation: 09/25 05:16 Chief complaint: Patient states: I can't breathe very well, its swelling up under my aa9 tongue and I am having trouble swallowing, my neck hurts and its really swollen it started yesterday. Coronavirus screen: Vaccine status: Patient reports receiving the 2nd dose of the covid vaccine. Ebola Screen: No symptoms or risks identified at this time. Initial Sepsis Screen: Does the patient meet any 2 criteria? No. Patient's initial sepsis screen is negative. Does the patient have a suspected source of infection? No. Patient's initial sepsis screen is negative. Risk Assessment: Do you want to hurt yourself or someone else? Patient reports no desire to harm self or others. Onset of symptoms was September 25, 2022. 05:16 Method Of Arrival: Ambulatory aa9 05:16 Acuity: HECTOR 2 aa9 Triage Assessment: 05:19 General: Appears uncomfortable, obese, Behavior is calm, cooperative. Pain: Complains aa9 of pain in neck Pain currently is 7 out of 10 on a pain scale. EENT: Throat has enlarged tonsils Reports difficulty swallowing. Neuro: Level of Consciousness is awake, alert, obeys commands, Oriented to person, place, time, situation. Cardiovascular: Denies chest pain. Respiratory: Airway is patent Respiratory effort is even, unlabored. GI: No signs and/or symptoms were reported involving the gastrointestinal system. : No signs and/or symptoms were reported regarding the genitourinary system. Historical: - Allergies: 05:18 NKDA; aa9 - Home Meds: 05:18 carvedilol 3.125 mg Oral tab 1 tab 2 times per day [Active]; cyanocobalamin (vit B-12) aa9 miscellaneous IM every 30 days [Active]; Farxiga 10 mg Oral tab 1 tab once daily [Active]; furosemide 20 mg Oral tab 2 tabs once daily [Active]; levothyroxine 100 mcg tab once daily [Active]; lisinopril 40 mg Oral tab 1 tab once daily [Active]; potassium chloride 20 mEq Oral TbER 1 tab once daily [Active]; - PMHx: 05:18 Anemia; Hypertension; Hypothyroidism; aa9 - PSHx: 05:18 Cholecystectomy; hernia; IUD; tubal ligation; aa9 - Immunization history:: Client reports receiving the 2nd dose of the Covid vaccine. - Social history:: Smoking status: Patient denies any tobacco usage or history of. - Family history:: not pertinent. - Hospitalizations: : No recent hospitalization is reported. Screenin:15 [facility] ED Fall Risk Assessment (Adult) History of falling in the last 3 months, bp including since admission No falls in past 3 months (0 pts). Abuse screen: Denies threats or abuse. Denies injuries from another. Nutritional screening: No deficits noted. Tuberculosis screening: No symptoms or risk factors identified. Assessment: 06:36 Reassessment: Patient appears in no apparent distress at this time. Patient and/or aa9 family updated on plan of care and expected duration. Pain level reassessed. Patient is alert, oriented x 3, equal unlabored respirations, skin warm/dry/pink. 07:00 Reassessment: RECD REPORT FROM RODOLFO KEEN. 52YO HF P/W MANDIBULAR EDEMA. TBDC AFTER IV bp ABX. Vital Signs: 05:16 BP 134 / 80; Pulse 74; Resp 17 S; Pulse Ox 98% on R/A; aa9 06:36 BP 143 / 75; Pulse 61; Resp 18; Pulse Ox 97% ; aa9 07:18 BP 129 / 71; Pulse 67; Resp 14; Pulse Ox 99% on R/A; ko1 ED Course: 05:05 Patient arrived in ED. ja2 05:07 Harjinder Osorio MD is Attending Physician. rn 05:16 Rodolfo Medina, OSMANI is Primary Nurse. aa9 05:18 Triage completed. aa9 05:20 Arm band placed on right wrist. aa9 05:21 Patient has correct armband on for positive identification. Call light in reach. Side aa9 rails up X2. Pulse ox on. NIBP on. 05:36 Inserted saline lock: 20 gauge in right antecubital area, using aseptic technique. aa9 Blood collected. 05:37 Blood Culture Adult (2) Sent. aa9 05:37 Lactate w/ 2H reflex if indic. Sent. aa9 05:37 Protime (+inr) Sent. aa9 05:37 Basic Metabolic Panel Sent. aa9 05:37 Ptt, Activated Sent. aa9 05:37 CBC with Diff Sent. aa9 06:11 CT Soft Tissue Neck W/contr In Process Unspecified. EDMS 06:36 Blood Culture Adult (2) Sent. aa9 06:53 Blood Culture Adult (2) Sent. aa9 07:17 No provider procedures requiring assistance completed. ko1 07:32 IV discontinued, intact, bleeding controlled, No redness/swelling at site. Pressure ko1 dressing applied. Administered Medications: 07:11 Drug: Decadron - Dexamethasone IVP 10 mg Route: IVP; Site: right antecubital; ko1 07:33 Follow up: Response: No adverse reaction ko1 07:17 Drug: Clindamycin IVPB 600 mg Route: IVPB; Infused Over: 30 mins; Site: right ko1 antecubital; 07:33 Follow up: Response: No adverse reaction; IV Status: Completed infusion; IV Intake: [id number] Medication: 07:17 VIS not applicable for this client. ko1 Intake: 07:33 IV: 50ml; Total: 50ml. ko1 Outcome: 07:00 Discharge ordered by . rn 07:34 Discharged to home ambulatory. ko1 07:34 Condition: stable 07:34 Discharge instructions given to patient, Instructed on discharge instructions, follow up and referral plans. medication usage, Demonstrated understanding of instructions, follow-up care, medications, Prescriptions given X 2. 07:34 Patient left the ED. ko1 Signatures: Dispatcher [employer] EDNC Harjinder Osorio MD MD rn Peltier, Brian, RN RN bp Alexander, Jessica ja2 Avalos, Aylin, RN RN aa9 Marian Trinh RN RN ko1
--- NOTE | 2022-09-25 07:01 | EDPHYS ---
Physician Documentation [facility] Name: Maryjane Meza Age: 52 yrs Sex: Female : 1970 Arrival Date: 09/25/2022 Time: 05:04 Bed 5 Private MD: ED Physician Harjinder Osorio HPI: 09/25 06:20 This 52 yrs old Female presents to ER via Ambulatory with complaints of Mouth rn Problem. 06:20 The patient presents with pain, swelling. The problem is located in the under tongue. rn Onset: The symptoms/episode began/occurred yesterday. Duration: The symptoms are continuous. Modifying factors: The symptoms are alleviated by nothing, the symptoms are aggravated by touching area. Associated signs and symptoms: Pertinent positives: pain, swelling, Pertinent negatives: fever. Severity of symptoms: At their worst the symptoms were moderate, in the emergency department the symptoms are unchanged. The patient has not experienced similar symptoms in the past. The patient has not recently seen a physician. Pt reports 2 days of sublingual swelling, getting worse, started "as a bump", also feels pain and swelling to neck. NO trauma. No fever. Not diabetic. . Historical: - Allergies: 05:18 NKDA; aa9 - Home Meds: 05:18 carvedilol 3.125 mg Oral tab 1 tab 2 times per day [Active]; cyanocobalamin (vit B-12) aa9 miscellaneous IM every 30 days [Active]; Farxiga 10 mg Oral tab 1 tab once daily [Active]; furosemide 20 mg Oral tab 2 tabs once daily [Active]; levothyroxine 100 mcg tab once daily [Active]; lisinopril 40 mg Oral tab 1 tab once daily [Active]; potassium chloride 20 mEq Oral TbER 1 tab once daily [Active]; - PMHx: 05:18 Anemia; Hypertension; Hypothyroidism; aa9 - PSHx: 05:18 Cholecystectomy; hernia; IUD; tubal ligation; aa9 - Immunization history:: Client reports receiving the 2nd dose of the Covid vaccine. - Social history:: Smoking status: Patient denies any tobacco usage or history of. - Family history:: not pertinent. - Hospitalizations: : No recent hospitalization is reported. ROS: 06:20 Constitutional: Negative for fever, chills, and weight loss, ENT: + sublingual swelling rn and pain Neck: + neck pain Cardiovascular: Negative for chest pain, palpitations, and edema, Respiratory: Negative for shortness of breath, cough, wheezing, and pleuritic chest pain, Abdomen/GI: Negative for abdominal pain, nausea, vomiting, diarrhea, and constipation, MS/Extremity: Negative for injury and deformity, Skin: Negative for injury, rash, and discoloration, Neuro: Negative for headache, weakness, numbness, tingling, and seizure. Exam: 06:20 Constitutional: This is a well developed, well nourished patient who is awake, alert, rn and in no acute distress. Head/Face: Normocephalic, atraumatic. ENT: + mild tenderness sublingual region, no abscess or fluctuance noted, floor of mouth soft. Neck: + bialteral cervical LAD without crepitus or firmness, no fluctuance. Cardiovascular: Regular rate and rhythm. No pulse deficits. Respiratory: No increased work of breathing, no retractions or nasal flaring. Vital Signs: 05:16 BP 134 / 80; Pulse 74; Resp 17 S; Pulse Ox 98% on R/A; aa9 06:36 BP 143 / 75; Pulse 61; Resp 18; Pulse Ox 97% ; aa9 07:18 BP 129 / 71; Pulse 67; Resp 14; Pulse Ox 99% on R/A; ko1 MDM: 05:07 Patient medically screened. rn 06:57 Differential diagnosis: dental caries, gingivitis, sublingual infection, submandibular rn infection/abscess. Differential diagnosis: salivary stone. Data reviewed: vital signs, nurses notes. Counseling: I had a detailed discussion with the patient and/or guardian regarding: the historical points, exam findings, and any diagnostic results supporting the discharge/admit diagnosis, lab results, radiology results, the need for outpatient follow up, to return to the emergency department if symptoms worsen or persist or if there are any questions or concerns that arise at home. Special discussion: I discussed with the patient/guardian in detail that at this point there is no indication for admission to the hospital. It is understood, however, that if the symptoms persist or worsen the patient needs to return immediately for re-evaluation. 09/25 05:13 Order name: CBC with Diff; Complete Time: 06:20 rn 09/25 05:13 Order name: Basic Metabolic Panel; Complete Time: 06:20 rn 09/25 05:13 Order name: Protime (+inr); Complete Time: 06:20 rn 09/25 05:13 Order name: Ptt, Activated; Complete Time: 06:20 rn 09/25 05:13 Order name: Blood Culture Adult (2) rn 09/25 05:13 Order name: Lactate w/ 2H reflex if indic.; Complete Time: 06:20 rn 09/25 06:54 Order name: CREATININE WHOLE BLOOD; Complete Time: 06:57 EDMS 09/25 05:13 Order name: CT Soft Tissue Neck W/contr rn 09/25 05:13 Order name: IV Start; Complete Time: 05:38 rn Administered Medications: 07:11 Drug: Decadron - Dexamethasone IVP 10 mg Route: IVP; Site: right antecubital; ko1 07:33 Follow up: Response: No adverse reaction ko1 07:17 Drug: Clindamycin IVPB 600 mg Route: IVPB; Infused Over: 30 mins; Site: right ko1 antecubital; 07:33 Follow up: Response: No adverse reaction; IV Status: Completed infusion; IV Intake: [id number] Disposition Summary: 09/25/22 07:00 Discharge Ordered Location: Home rn Problem: new rn Symptoms: have improved rn Condition: Stable rn Diagnosis - Cellulitis of neck rn Followup: rn - With: Private Physician - When: As needed - Reason: Recheck today's complaints, Re-evaluation by your physician Discharge Instructions: - Discharge Summary Sheet rn - Cellulitis, Adult rn Forms: - Medication Reconciliation Form rn - Thank You Letter rn - Antibiotic director of learning - Prescription Opioid Use rn Prescriptions: - Clindamycin HCl 300 mg Oral Capsule - take 1 capsule by ORAL route every 6 hours for 10 days; 40 capsule; Refills: 0, rn Product Selection Permitted - Medrol (Chance) 4 mg Oral Tablets, Dose Pack - take 1 tablet by ORAL route as directed - follow package instructions; 1 rn packet; Refills: 0, Product Selection Permitted Signatures: Dispatcher [employer] Harjinder Barry MD MD rn Avalos, Aylin RN RN [id number] Marian Trinh, RN RN ko1
[2022-09-25] MEDS ORDERED: CLINDAMYCIN 600MG/D5W 50 ML IV ONE (07:14)
[2022-09-25] MEDS ORDERED: dexAMETHasone 10 MG/ML VIAL ONE (07:14)
[2022-09-25 07:59] VITALS: BP 129/71; O2SAT 99
--- NOTE | 2022-09-29 11:20 | RAD REPORT ---
EXAM DESCRIPTION: CT - Soft Tissue Neck W/Contr - 09/25/2022 6:52 am CLINICAL HISTORY: 52 years Female neck and sublingual swelling/pain. TECHNIQUE: Axial CT imaging of the soft tissues of the neck were performed following the administrat ion of intravenous contrast. followed by sagittal and coronal reconstructed images. The CT study is p erformed according to ALARA (as low as reasonably achievable) or ALARA/IMAGE GENTLY, with automatic a djustment of mA and/or kV according to patient size. Performed on: 09/25/2022 at 6:07 AM COMPARISON: CT cervical spine performed on 03/26/2021. FINDINGS: The visualized portions of the brain and orbits are normal. The oral cavity, oropharynx and nasopharynx are normal. Some portions of the oral cavity and orophary nx are obscured by streak artifact related to the patient's dental hardware. The parapharyngeal fa t planes are preserved. The hypopharynx is unremarkable. The epiglottis and aryepiglottic folds are normal. The vallecula and pyriform sinuses are grossly nor mal. The preepiglottic fat is preserved. The thyroid, cricoid and arytenoid cartilages are normal. The region of the false and true vocal cords is normal as is the anterior commissure. The parotid and submandibular glands are grossly within normal limits. No intrinsic mass lesions are seen. . The carotid sheaths are normal bilaterally. The paranasal sinuses and mastoid air cells are clear. No definite pathologically enlarged lymph nodes are identified The thyroid gland is normal in size and configuration. There is a partially calcified nodule in the m idpole of the left thyroid lobe measuring approximately 1.0 x 0.7 x 1.4 cm. No follow-up imaging is r ecommended. The thoracic inlet is normal. The superior mediastinum and lung apices are normal. No acute osseous abnormalities are identified. There is scattered periodontal disease. There is a sta ble bone island in T2. No focal soft tissue abnormalities are seen. IMPRESSION: 1. No evidence of acute abnormality involving the soft tissues of the neck. There are no definite findings on this examination to explain the patient's sublingual swelling and pain. 2. Partially calcified nodule in the midpole of the left thyroid lobe measuring approximately 1.4 c m. No follow-up imaging is recommended. 3. Scattered periodontal disease. Electronically signed by: Enriqueta Díaz DO 09/25/2022 6:31 AM CDT Due to temporary technical issues with the PACS/Fluency reporting system, reports are being signed by the in house radiologist without review as a courtesy to ensure prompt reporting. The interpreting r adiologist is fully responsible for the content of the report.
== END 2022-09-25 07:34 | disposition home or self-care (01) ==
LOC: ER 05:04
DX: L03.221 Cellulitis of neck (principal)
CPT/HCPCS: 36415; 70491; 80048; 82565; 83605; 85025; 85610; 85730; 87040; 96365; 96375; 99284; J1100; Q9967

== ENCOUNTER 2022-09-29 17:52 | Emergency (ER) | payer SELFPAY ==
--- OUTSIDE RECORDS SUMMARY | 2022-09-29 17:55 | XMS REPORT | Continuity of Care Document ---
:1970 Author Organization [facility] t Address [address] [facility] [address] [place] [address] Care Team Providers Name Role Phone CRANE, OLEG Sloan Primary Care Physician Unavailable Subha ALVARADO Attending Clinician Unavailable Subha Oneal Attending Clinician Doctor Unassigned, Green Attending Clinician Unavailable Subha ALVARADO Admitting Clinician [...] submucosal submucosal 02-11 it y of 00:00: [place] 00 Medical Branch Contracept Contracept Disease Active U nicole oleg oleg 12-10 ity of management management 00:[place] 00 [place] Branch Hypothyroi Hypothyroi Disease Active Overview : Univers dism dism 01-19 Formattin ity of 00:00: g of this [place] 00 note Medical might be Branch different from the original. ICD10 Diagnosis Term Compliance Field Technician Utility Intramural Intramural Disease Active Overview : Univers leiomyoma leiomyoma 4-24 Formattin i ty of of uterus of uterus 00:00: g of this [place] 00 note Medical might be Branch different from the original. Medical records received. [facility]- 06/30/2012 . Impressio n: small uterine fibroids. Small left ovarian/p arovarian cyst. A very small fibroid is seen in the anterior mural location left side fundal region of the uterus. A slightly larger more posterior ly located fundal myometria l fibroid is present measuring 17mm.[facility] records from [facility] 09-17-15- multiple fibroids, submucosa l fibroid see scanned records History of History of Disease Active U nivers tubal tubal 4-24 ity of ligation ligation 00:00: [place] 00 Medical Branch Asymptomat Asymptomat Disease Active U nivers ic ic 4-24 ity of varicose varicose 00:00: [place] veins veins Medical Branch Morbid Morbid Disease Active Univers obesity obesity 4-24 ity of 00:00: [place] [id number] Medical Branch Excessive Excessive Disease Active Uni vers or or 4-24 ity of frequent frequent 00:00: [place] menstruati menstruati 00 Me dical on on Branch Essential Essential Disease Active Overview: Univers hypertensi hypertensi 4-24 Formattin ity of on on 00:00: g of this 00 note Medical might be Branch different from the original. ICD10 Diagnosis Term Compliance Field Technician Utility Allergies, Adverse Reactions, Alerts Allergy Allergy Status Severity Reaction(s) Onset Inactive Treating Comm ents Source Name Type Date Date Clinician NO KNOWN Drug Active Univers ALLERGIE Class ity of S [facility] Social History Social Habit Start Date Stop Date Quantity Comments Source Exposure to Not sure [facility] SARS-CoV-2 [facility] (event) Branch Tobacco use and 2018-04-14 2018-04-14 Never used Universit y of exposure 00:00:00 00:00:00 [facility] Alcohol intake 2018-04-14 2018-04-14 Current University of 00:00:00 00:00:00 non-drinker of [facility] alcohol Branch (finding) Sex Ass[birth year] At [birth year] Universit y of 00:00:00 00:00:00 [facility] Smoking Status Start Date Stop Date Source Never smoker [facility] Medications Ordered Filled Start Stop Current [...] dose, On Branch 06/09/21 at 1715, Routine
physics faculty member approving Restricted medication : Subha ALVARADO naproxen Yes [id number] 500mg Take 1 U nivers (NAPROSYN) 06-09 tablet by ity of 500 mg 00:00: mouth 2 [place] tablet 00 (two) Medical times [place] daily with meals. lisinopril 2017-05 Yes 10mg Take 10 mg U nivers 10 mg 1-29 by mouth ity of tablet 16:59: daily. [address] HYDROCHLORO 2017-05 Yes Take by Uni vers THIAZIDE 1-29 mouth. ity of ORAL 16:59: [address] lisinopril 2017-05 Yes 10mg Take 10 mg U nivers 10 mg 1-29 by mouth ity of tablet 16:59: daily. [address] HYDROCHLORO 2017-05 Yes Take by Uni vers THIAZIDE 1-29 mouth. ity of ORAL 16:59: [address] lisinopril 2017-05 Yes 10mg Take 10 mg U nivers 10 mg 1-29 by mouth ity of tablet 10:59: daily. [address] HYDROCHLORO 2017-05 Yes Take by Uni vers THIAZIDE 1-29 mouth. ity of ORAL 10:59: [address] lisinopril 2017-05 Yes 10mg Take 10 mg U nivers 10 mg 1-29 by mouth ity of tablet 10:59: daily. [place] 14 Medical Branch HYDROCHLORO 2017-05 Yes Take by Uni vers THIAZIDE 1-29 mouth. ity of ORAL 10:59: [place] 14 [facility] Branch Levothyroxi 2014-05 Yes [id number] 1{tbl} Take 1 Tab Univers ne 0-19 by mouth ity of (TIROSINT) 00:00: daily. [place] 50 mcg Cap 00 Medical Branch Levothyroxi 2014-05 Yes [id number] 1{tbl} Take 1 Tab Univers ne 0-19 by mouth ity of (TIROSINT) 00:00: daily. [place] 50 mcg Cap 00 Medical Branch Levothyroxi 2014-05 Yes [id number] 1{tbl} Take 1 Tab Univers ne 0-19 by mouth ity of (TIROSINT) 00:00: daily. [place] 50 mcg Cap 00 Medical Branch Levothyroxi 2014-05 Yes [id number] 1{tbl} Take 1 Tab Univers ne 0-19 by mouth ity of (TIROSINT) 00:00: daily. [place] 50 mcg Cap 00 [facility] Immunizations Ordered Filled Immunization Date Status Comments [facility] e Immunization Name Name Td 2009-09-07 Completed University 00:00:00 [facility] Td 2009-09-07 Completed University 00:00:00 [facility] Td 2009-09-07 Completed University 00:00:00 [facility] Td 2009-09-07 Completed [facility] 00:00:00 [facility] Vital Signs Vital Name Observation Time Observation Value Comments Source Systolic blood 2021-06-09 23:00:00 119 mm[Hg] Univer sity of pressure [facility] Diastolic blood 2021-06-09 23:00:00 71 mm[Hg] Unive rsity of pressure [facility] Heart rate 2021-06-09 23:00:00 60 /min [facility] Respiratory rate 2021-06-09 23:00:00 14 /min [facility] Oxygen saturation in 2021-06-09 23:00:00 100 /min [facility] Arterial blood by [facility] Pulse oximetry Branch Body temperature 2021-06-09 20:44:00 36.22 [facility] height 2021-06-09 20:44:00 170.2 cm [facility] Body weight 2021-06-09 20:44:00 122.471 kg [facility] BMI 2021-06-09 20:44:00 42.29 kg/m2 [facility] Procedures Procedure Date / Time Performed Performing Clinician Sourc e XR CHEST 1 VW 2021-06-09 21:13:09 Subha Alvarado [facility] N-TERMINAL PRO-BNP 2021-06-09 21:07:00 Subha Alvarado [facility] COVID-19 (ID NOW RAPID 2021-06-09 21:07:00 Subha Alvarado [facility] TESTING) Medical Branch MAGNESIUM 2021-06-09 21:07:00 Subha Alvarado Tasneem [facility] TROPONIN I 2021-06-09 21:07:00 Subha Alvarado Tasneem [facility] COMP. METABOLIC PANEL 2021-06-09 21:07:00 Subha Alvarado [facility] ([id number]) [facility] CBC WITH DIFF 2021-06-09 21:07:00 Sandy [facility] URINALYSIS 2021-06-09 21:07:00 Sandy, [facility] NOTICE OF PRIVACY 2021-06-09 20:35:37 Doctor Unassigned, No [facility] PRACTICES Name [facility] CONSENT/REFUSAL FOR 2021-06-09 20:35:10 [facility] AND Name [facility] TREATMENT REFERRAL- 2020-12-18 05:01:00 Doctor Unassigned, No [facility] REQUEST/RESPONSE Name Medical Branch REFERRAL- 2020-11-11 05:01:00 Doctor Unassigned, No [facility] REQUEST/RESPONSE Name [facility] Encounters Start End Encounter Admission Attending Care Care Encounter Source Date/Time Date/Time Type Type Clinicians Facility Department ID 2022-09-29 2022-09-29 Outpatient [facility] [id number] [place] 14:38:54 14:38:54 0516 [facility] 2022-09-10 2022-09-10 Outpatient [facility] [id number] [place] 13:21:53 13:21:53 0427 [facility] 2022-09-08 2022-09-08 Outpatient [facility] [id number] [place] 13:20:57 13:20:57 0425 F [facility] 2022-08-27 2022-08-27 Outpatient [facility] SFA [id number] [place] 11:30:50 11:30:50 0413 F Mosquero 2022-07-16 2022-07-16 Outpatient [facility] SFA [id number] 023 [place] 13:33:58 13:33:58 0302 F Mosquero 2022-07-08 2022-07-08 Outpatient [facility]FA SFA [id number] 023 [place] 13:30:54 13:30:54 0222 F Mosquero 2022-06-19 2022-06-19 Outpatient [facility] SFA [id number] 023 [place] 14:49:41 14:49:41 0203 F Mosquero 2022-05-22 2022-05-22 Outpatient [facility] SFA [id number] [place] 14:48:08 14:48:08 0106 F Mosquero 2022-05-21 2022-05-21 Outpatient [facility] SFA [id number] 023 [place] 15:07:23 15:07:23 0105 F Mosquero 2022-04-25 2022-04-25 Outpatient SFA SFA [id number] 022 [place] 10:50:43 10:50:43 1210 F Mosquero 2022-04-24 2022-04-24 Outpatient [facility] SFA [id number] [place] 16:44:16 16:44:16 1209 F [place] 2021-06-09 2021-06-09 Emergency X Subha ALVARADO [facility] ERT [id number] Univers 14:48:00 17:18:00 ity of [facility] 2021-06-09 2021-06-09 Emergency Subha Alvarado [facility] [id number] Univers 14:48:00 17:18:00 Tasneem HUA 350.1.13.10 i ty of [place] 4.2.7.2.686 [facility] [phone] [address] 2021-06-09 2021-06-09 Orders Doctor BEATRIZ [id number] [id number] Univers 00:00:00 00:00:00 Only Unassigned, VANDA 350.1.13.10 [place] [facility] [place] [facility] 4.2.7.2.686 Johnnie as [phone] [address] 2020-12-18 2020-12-18 Orders Doctor BEATRIZ Lazar2.840.114 [id number] Univers 00:00:00 00:00:00 Only Unassigned, VANDA 350.1.13.10 [facility] [facility] [place] [facility] 4.2.7.2.686 Johnnie as [phone] [address] 2020-11-11 2020-11-11 Orders Doctor BEATRIZ Johnson.2.840.114 [id number] 00:00:00 00:00:00 Only Unassigned, VANDA 350.1.13.10 [place] [facility] 4.2.7.2.686 [id number] [facility] 2020-11-11 2020-11-11 Orders Doctor BEATRIZ Johnson.2.840.114 [id number] Univers 00:00:00 00:00:00 Only Unassigned, VANDA 350.1.13.10 [facility] [facility] [place] [facility] 4.2.7.2.686 Johnnie as [phone] [address] Results Test Description Test Time Test Comments [...] nalis and Trichomonas vaginalis nucle ic acid. [facility] has important patho logy staff changes effective 07/15. New pathology staff will provide uninterrupted, excellent patient care and clinical co nsultation. See URL: [email or web address]. UNLESS OTHERWISE INDIC ATED, ALL TESTING PERFORMED AT [facility], [facility]. [address] [place] [address] 4 SENIOR RESTAURANT MANAGER: ALEX RIVERA M.D. [place] NUMBER [id number] [facility] [place]. [id number] FORMERLY [facility], [id number] 06:59:00 Test Item Value Reference Range Interpretation Comments TSH, THIRD GENERATION (test code 1.650 UIU/ML 0.400-4.100 = 2821) FREE T4 (THYROXINE)2022-05-23 06:59:00 Test Item Value Reference Range Interpretation Comments FREE T4 (THYROXINE) (test code = 1.33 NG/DL 0.80-1.90 2823) [id number] 06:40:13 Test Item Value Reference Range Interpretation Comments NT-proBNP <50 PG/ML SEE BELOW If NT-ProBNP i s less than 300 (test code = PG/ML, heart fa ilure is unlikely 35904) for allages. Age............ .....Heart Failure Likely <50 Years.......... .>=450 PG/ML 50-75 Years.... .....>=900 PG/ML > 75 Years..... .....>=1800 PG/ML Methodology: [employer] [facility] [employer]escense Immunoassay UNL ESS OTHERWISE INDICATED, ALL TESTING PERFORMED ATCLINICAL PATH [employer], [facility]. [address] [place] [address] 4 SENIOR RESTAURANT MANAGER: Stephanie COLEMAN [id number] CAP ACCREDITATION N O. [id number] HEMOGLOBIN [id number] 04:25:14 Test Item Value Reference Range Interpretation Comments HEMOGLOBIN A1c (test code = 52362) 6.0 % 4.2-5.6 H COMPREHENSIVE METABOLIC [id number] 04:05:00 Test Item Value Reference Range Interpretation Comments GLUCOSE (test code = 112 MG/DL 70-99 H 2216) BUN (test code = 12 MG/DL -2207) CREATININE (test 0.81 MG/DL 0.60-1.30 code = 2214) eGFR (2020 CKD-EPI) 87 ML/MIN/1.73 >60 (test code = 47456) CALC BUN/CREAT (test 15 RATIO -28 code = 2235) SODIUM (test code = 140 MEQ/L 402-040 4666) POTASSIUM (test code 4.4 MEQ/L 3.5-5.4 = [...] PHOSPHATASE 100 U/L 40-133 (test code = 220) AST (test code = 16 U/L 9-40 2217) ALT (test code = 13 U/L 5-40 2218) LIPID [id number] 04:05:00 Test Item Value Reference Range Interpretation [...] MOREINFORMATION , SEE CLIENT ANNOUNCE MENT AT [email or web address] [email or web address] RATIO LDL/HDL 1.40 RATIO <3.22 (test code = 2238) CULTURE, [id number] 08:33:49SPECIMEN NUMBER: [id number] CULTURE, URINE SPECIMEN NUMBER: [id number] SPECIMEN COMMENT: URINE SOURCE:URINE REPORT STATUS: FINAL FINAL REPORT: 12/20/2021 10-50,000 CFU/ML UROGENITAL TWAN PRESENT NO COMM ON PATHOGENS UNLESS OTHERWISE INDICATED, ALL TESTING PERFORMED [facility] Measurement, [facility]. [address] [place] [address] SENIOR RESTAURANT MANAGER: STEFANIE SALINAS M.D. CLIA NUMBER [id number] [place]. [id number] CULTURE, [id number] 12:12:01SPECIMEN NUMBER: [id number] CULTURE, URINE SPECIMEN NUMBER: [id number] SPECIMEN COMMENT: URINE SOURCE: URINE REPORT STATUS: FINAL ISOLATE NUMBER 1: ORGANISM: 11/26/2021 >100,000 CFU/ML GRAM NEGATIVE B ACILLI IDENTIFICATION: 11/27/2021 ESCHERICHIA COLI E. COLI AMOXICILLIN/CA SENSITIVE <=8/4AMPICILLIN SENSITIVE <=8CEFAZOLIN SENSITIVE <=2CEFTRIAXONE SENSITIVE <=1CIPROFLOXACIN SENSITIVE <=1LEVOFLOXACIN SENSITIVE <=2NITROFURANTOIN SENSITIVE <=32PIP/TAZOBAC SENSITIVE <=16TETRACYCLINE SENSITIVE <=4TOBRAMYCIN SENSITIVE <=4TRIMETH/SULFA SENSITIVE <=2/38 NOTE: NUMBERS DISPLAYED REPRESENT MINIMUM INHIBITORY CONCENTRATION (BRUNO) WHICH IS EXPRESSED IN MCG/ML. U NLESS OTHERWISE INDICATED, ALL TESTING PERFORMED [facility] [employer] Measurement, [facility]. [address] [place] [address] SENIOR RESTAURANT MANAGER: STEFANIE SALINAS M.D. CLIA NUMBER [id number] [place]. [id number] + FREE T4 [id number] 06:27:42 Test Item Value Reference Range Interpretation Comments TSH, THIRD 1.180 UIU/ML 0.400-4.100 GENERATION (test code = 2821) FREE T4 (THYROXINE) 1.35 NG/DL 0.80-1.90 UNLESS OTHERWISE (test code = 2823) INDICATED , ALL TESTING PERFORMED [facility] PATHOLOGY JP[employer] Measurement, [facility]. [address] [place] [address] LABOR ATORY DIRECTOR: STEFANIE SALINAS M.D. CLIA NUMBER [id number] CAP [place]CREDITATION N O. [id number] HEMOGLOBIN [id number] 06:24:07 Test Item Value Reference Range Interpretation Comments HEMOGLOBIN A1c (test code = 20738) 5.8 % 4.2-5.6 H LIPID [id number] 05:53:02 Test Item Value Reference Range Interpretation [...] MOREINFORMATION , SEE CLIENT ANNOUNCE MENT AT [email or web address] /[email or web address] RISK RATIO LDL/HDL 1.52 RATIO <3.22 (test code = 2238) COMPREHENSIVE METABOLIC [id number] 05:53:02 Test Item Value Reference Range Interpretation Comments GLUCOSE (test code = 101 MG/DL 70-99 H 2216) BUN (test code = 14 MG/DL 6-20 2207) CREATININE (test 0.62 MG/DL 0.60-1.30 code = 2214) eGFR (2020 CKD-EPI) 107 >60 (test code = 38330) ML/MIN/1.73 CALC BUN/CREAT (test 23 RATIO 6-28 code = 2235) SODIUM (test code = 136 MEQ/L 041-236 4275) POTASSIUM (test code 3.7 MEQ/L 3.5-5.4 = 2227) CHLORIDE (test code 103 MEQ/L 95-107 = 2215) CARBON DIOXIDE (test 19 MEQ/L 19-31 code = 2206) CALCIUM (test code = 8.7 MG/DL 8.5-10.5 2208) PROTEIN, TOTAL (test 7.8 G/DL 6.1-8.3 code = 2229) ALBUMIN (test code = 4.5 G/DL 3.5-5.2 2200) CALC GLOBULIN (test 3.3 G/DL 1.9-3.7 code = 2240) CALC A/G RATIO (test 1.4 RATIO 1.0-2.6 code = 2234) BILIRUBIN, TOTAL 1.0 MG/DL See_Comment [Automated message] (test code = 7) The syste m which generated this result transmit rafa reference range : <=1.2. The refe rence range was not u sed to interpret th is result as normal/abnormal . ALKALINE PHOSPHATASE 85 U/L 40-132 (test code = 4) AST (test code = 16 U/L 9-40 2217) ALT (test code = 13 U/L 5-40 2218) TROPONIN [id number] 21:49:50 Test Item Value Reference Interpretation Comments Range TROPONIN I (test 0.003 ng/mL See_Comment [Automated code = 4707698459) message] The system which generated this result [...] biotin. Lab Interpretation Normal (test code = 04183-9) [id number] 21:46:48 Test Item Value Reference Range Interpretation Comments NT-proBNP (test code 39 pg/mL See_Comment [Autom ated = 0753512318) message] The system which generated this result transmitted reference range : <=125. The reference range was not used to interpret this result as normal/abnormal . MARRY (test code = MARRY) Biotin has been reported to cause a negative bias, interpret results relative to patient's use of biotin. Lab Interpretation Normal (test code = 96729-0) [id number] 21:38:09 Test Item Value Reference Range Interpretation Comments MAGNESIUM (test code = 8070718103) 1.6 mg/dL 1.7-2.4 L Lab Interpretation (test code = Abnormal 19753-1) [facility]. METABOLIC PANEL (03614)2021-06-09 21:37:49 Test Item Value Reference Range Interpretation Comments NA (test code = 137 mmol/L 135-145 3146812961) K (test code = 3.7 mmol/L 3.5-5.0 6001891853) CL (test code = 100 mmol/L 98-108 3835156168) CO2 TOTAL (test code = 26 mmol/L 23-31 2076686203) AGAP (test code = 2-16 5077852155) BUN (test code = 15 mg/dL 7-23 7352524591) GLUCOSE (test code = 113 mg/dL 70-110 H 5894766536) CREATININE (test code = 0.69 mg/dL 0.50-1.04 3340255174) TOTAL BILI (test code = 0.6 mg/dL 0.1-1.9 0155818425) CALCIUM (test code = 9.3 mg/dL 8.6-10.6 5079156667) T PROTEIN (test code = 8.9 g/dL 6.3-8.2 H 7180973522) ALBUMIN (test code = 5.0 g/dL 3.5-5.0 4080568012) ALK PHOS (test code = 78 U/L 34-122 4376926703) ALTv (test code = 18 U/L 5-35 1742-6) AST(SGOT) (test code = 25 U/L 13-40 4363111559) eGFR (test code = mL/min/1.73m2 7010190175) MARRY (test code = MARRY) Association of [...] tests). Lab Interpretation Abnormal (test code = 96172-6) [facility] WITH [id number] 21:20:43 Test Item Value Reference Range Interpretation Comments WBC (test code = See_Comment [Automated message] 6690-2) The system [employer] generated this result transmitted ref erence range: 4.30 - 1 1.10 10*3/?L. The re ference range was not u sed to interpret this result as normal/abnor mal. RBC (test code = See_Comment [Automated message] 789-8) The system [employer] generated this result transmitted ref erence range: [...] RDW-SD (test code 40.2 fL 39.0-49.9 = 70394-8) RDW-CV (test code 13.2 % 12.0-15.5 = 788-0) PLT (test code = See_Comment [Automated message] 777-3) The system whic h generated this result transmitted ref erence range: 166 - 35 8 10*3/?L. The re ference range was not u sed to interpret this result as normal/abnor mal. MPV (test code = 10.8 fL 9.5-12.9 87951-0) NRBC/100 WBC (test See_Comment [Automat ed message] code = 6465906002) The syste m which generated this result transmitted ref erence range: 0.0 - 10 .0 /100 WBCs. The refer ence range was not u sed to interpret this result as normal/abnor mal. NRBC x10^3 (test <0.01 See_Comment [Automated message] code = 2850341940) The syste m which generated this result transmitted ref erence range: 10*3/?L. The reference range was not used to interpr et this result as normal/abnormal . GRAN MAT (NEUT) % 69.3 % (test code = 770-8) IMM GRAN % (test 0.40 % code = 1565154036) LYMPH % (test code 23.1 % = 736-9) MONO % (test code 5.3 % = 5905-5) EOS % (test code = 1.5 % 713-8) BASO % (test code 0.4 % = 706-2) GRAN MAT 6.96 10*3/uL 1.88-7.09 x10^3(ANC) (test code = 1014842632) IMM GRAN x10^3 0.04 10*3/uL 0.00-0.06 (test code = 3386846276) LYMPH x10^3 (test 2.32 10*3/uL 1.32-3.29 code = 731-0) MONO x10^3 (test 0.53 10*3/uL 0.33-0.92 code = 742-7) EOS x10^3 (test 0.15 10*3/uL 0.03-0.39 code = 711-2) BASO x10^3 (test 0.04 10*3/uL 0.01-0.07 code = 704-7) [facility]), RT-PCR/[id number] 15:38:42 Test Item Value Reference Interpretation Comments Range SARS-CoV-2 NEGATIVE SEE NOTE SARS-CoV-2 RNA NOT INTERPRETATION DETECTEDNegat oleg (test code = 87181) results do not preclude SARS-CoV-2 infe ction [...] code = [place]IF[place]: [place] [address]) Oscar Graham [facility] l-Time RT-PCR. The exp ected result or [...] provided by met hod given in report:https:// www.[employer].com/clinici ans/clcecilia nt-communicatio ns/ Alternatively, see downloadable PD F fact sheet at:https://www. [email or web address]/COVID-19-RT -PCR UNLESS OTHERWIS E INDICATED, ALL TESTING PERFORMED [facility] [employer] [address] [place] [address] 4 LABORATORY DIRE CTOR: STEFANIE OATES M.D. CLIA NUMBER [id number] [place] [id number]"
--- NOTE | 2022-09-29 18:49 | RAD REPORT ---
EXAM DESCRIPTION: RAD - Foot Left 3 View - 09/29/2022 6:43 pm CLINICAL HISTORY: great toe injury COMPARISON: <Comparisons> FINDINGS: No fracture or dislocation seen. Large plantar calcaneal spur.
--- NOTE | 2022-09-29 18:51 | EDPHYS ---
Physician Documentation [facility] Name: Maryjane Meza Age: 52 yrs Sex: Female : 1970 Arrival Date: 09/29/2022 Time: 17:52 Bed 9 Private MD: ED Physician Preston Alvarado HPI: 09/29 18:04 This 52 yrs old Female presents to ER via Unassigned with complaints of Toe jmm Injury. 18:04 The patient presents with an injury, pain. The complaints affect the Left first jmm toenail. Onset: The symptoms/episode began/occurred acutely, today. Modifying factors: The symptoms are alleviated by nothing, the symptoms are aggravated by nothing. Associated signs and symptoms: Pertinent positives: swelling, bleeding. Historical: - Allergies: 18:16 NKDA; nj1 - PMHx: 18:16 Anemia; Hypertension; Hypothyroidism; nj1 - PSHx: 18:16 Cholecystectomy; hernia; IUD; tubal ligation; nj1 - Immunization history:: Client reports receiving the 2nd dose of the Covid vaccine. - Social history:: Smoking status: Patient denies any tobacco usage or history of. ROS: 18:04 Constitutional: Negative for fever, chills, and weight loss, Cardiovascular: Negative jmm for chest pain, palpitations, and edema, Respiratory: Negative for shortness of breath, cough, wheezing, and pleuritic chest pain. 18:04 MS/extremity: Positive for pain. 18:04 All other systems are negative. Exam: 18:04 Constitutional: This is a well developed, well nourished patient who is awake, alert, jmm and in no acute distress. Head/Face: atraumatic. Eyes: EOMI, no conjunctival erythema appreciated ENT: Moist Mucus Membranes Neck: Trachea midline, Supple Chest/axilla: Normal chest wall appearance and motion. Cardiovascular: Regular rate and rhythm. No edema appreciated Respiratory: Normal respirations, no respiratory distress appreciated Abdomen/GI: Non distended Back: Normal ROM Skin: General appearance color normal 18:04 Musculoskeletal/extremity: left great toe ttp, compartments are soft, NVI, mild bleeding noted surrounding the nail plate. . 18:04 Skin: Appearance: Color: normal in color. 18:04 Neuro: Orientation: is normal, Mentation: is normal, Memory: is normal. 18:04 Psych: Behavior/mood is pleasant, cooperative. Vital Signs: 18:12 BP 106 / 64; Pulse 70; Resp 18; Temp 98.6; Pulse Ox 100% ; Weight 108.86 kg; Height 5 nj1 ft. 7 in. ; Pain 7/10; 18:12 Body Mass Index 37.59 (108.86 kg, 170.18 cm) nj1 18:12 Pain Scale: Adult nj1 MDM: 18:13 Patient medically screened. [facility] 09/29 18:03 Order name: Foot Left 3 View XRAY; Complete Time: 18:51 [facility] 09/29 18:45 Order name: Misc. Order: wrap left great toe with coban; Complete Time: 19:06 [facility] Administered Medications: 19:06 Not Given (Patient Refused): Ibuprofen PO 800 mg PO once 9 20:00 Drug: Tetanus-Diphtheria Toxoid IM Adult 0.5 ml {Creative Resource Manager: [employer] (ipsy). pf1 Exp: 04/03/2023. Lot #: [id number]. } Route: IM; Site: left deltoid; 20:08 Follow up: Response: No adverse reaction; Marked relief of symptoms pf1 20:03 Drug: Ibuprofen PO 800 mg Route: PO; pf1 20:08 Follow up: Response: No adverse reaction; Marked relief of symptoms; Pain is unchanged, pf1 physician notified Disposition: 18:15 Co-signature as Attending Physician, Preston ZULETA was immediately available on-site ms3 in the Emergency Department for consultation in the care of the patient. Disposition Summary: 09/29/22 18:50 Discharge Ordered Location: Home [facility] Condition: Stable [facility] Diagnosis - Avulsion of the great toenail [facility] Followup: [facility] - With: Jayden Wyatt DPM - When: 2 - 3 days - Reason: Recheck today's complaints, Continuance of care, Re-evaluation by your physician Discharge Instructions: - Discharge Summary Sheet [facility] - Nail Avulsion [facility] Forms: - Medication Reconciliation Form [facility] - Thank You Letter [facility] - Antibiotic Education [facility] - Prescription Opioid Use [facility] Prescriptions: - orphenadrine citrate 100 mg Oral Tablet Sustained Release - take 1 tablet by ORAL route 2 times per day As needed; 20 tablet; Refills: 0, jmm Product Selection Permitted Signatures: Dispatcher [employer] Rob Scwharz PA PA jmm Sims, Marcus, DO LUZ ms3 Shelley Gutierrez RN RN pf1 Diana Espinoza RN RN nj1 Mili, Audra Patiño RN mb9
--- NOTE | 2022-09-29 18:51 | ER ---
Nurse's Notes [facility] Name: Maryjane Meza Age: 52 yrs Sex: Female : 1970 Arrival Date: 09/29/2022 Time: 17:52 Bed 9 Private MD: Diagnosis: Avulsion of the great toenail Presentation: 09/29 18:12 Chief complaint: Patient states: Was cleaning the garage when a metal piece fell on nj1 left toe and when she turned around the nail almost came off. Took Tylenol prior to arrival. Coronavirus screen: Vaccine status: Patient reports receiving the 2nd dose of the covid vaccine. Ebola Screen: Patient denies travel to an Ebola-affected area in the 21 days before illness onset. Initial Sepsis Screen: Does the patient meet any 2 criteria? No. Patient's initial sepsis screen is negative. Does the patient have a suspected source of infection? No. Patient's initial sepsis screen is negative. Risk Assessment: Do you want to hurt yourself or someone else? Patient reports no desire to harm self or others. Onset of symptoms was September 29, 2022. 18:12 Method Of Arrival: Ambulatory [facility] 18:12 Acuity: HECTOR 3 nj1 Triage Assessment: 19:00 General: Appears in no apparent distress. uncomfortable, obese, well groomed, well pf1 developed, Behavior is calm, cooperative, appropriate for age, quiet. Historical: - Allergies: 18:16 NKDA; nj1 - PMHx: 18:16 Anemia; Hypertension; Hypothyroidism; nj1 - PSHx: 18:16 Cholecystectomy; hernia; IUD; tubal ligation; nj1 - Immunization history:: Client reports receiving the 2nd dose of the Covid vaccine. - Social history:: Smoking status: Patient denies any tobacco usage or history of. Screenin:00 [facility] ED Fall Risk Assessment (Adult) History of falling in the last 3 months, pf1 including since admission No falls in past 3 months (0 pts) Confusion or Disorientation No (0 pts) Intoxicated or Sedated No (0 pts) Impaired Gait No (0 pts) Mobility Assist Device Used No (0 pt) Altered Elimination No (0 pt) Score/Fall Risk Level 0 - 2 = Low Risk Oriented to surroundings, Maintained a safe environment, Educated pt \T\ family on fall prevention, incl call for assistance when getting out of bed, Assessed \T\ reinforced patient's understanding of fall precautions, Provided non-skid footwear, Hourly rounding (assess needs \T\ fall precautionary measures) done, Used ambulatory aids as needed (educated on \T\ assisted with), Used gait belt as appropriate. Abuse screen: Denies threats or abuse. Nutritional screening: No deficits noted. Tuberculosis screening: No symptoms or risk factors identified. Assessment: 19:00 General: Appears in no apparent distress. uncomfortable, obese, well groomed, well pf1 developed, Behavior is calm, cooperative, appropriate for age, quiet. 19:00 Pain: Complains of pain in Left first toenail and left great toe. Neuro: Level of pf1 Consciousness is awake, alert, obeys commands, Oriented to person, place, time, situation. Cardiovascular: Capillary refill < 3 seconds Patient's skin is warm and dry. Respiratory: No deficits noted. Airway is patent Trachea midline Respiratory effort is even, unlabored, Respiratory pattern is regular, symmetrical. GI: No deficits noted. No signs and/or symptoms were reported involving the gastrointestinal system. : No deficits noted. No signs and/or symptoms were reported regarding the genitourinary system. EENT: No deficits noted. No signs and/or symptoms were reported regarding the EENT system. Derm: Wound noted Left first toenail, nail avulsion. Vital Signs: 18:12 BP 106 / 64; Pulse 70; Resp 18; Temp 98.6; Pulse Ox 100% ; Weight 108.86 kg; Height 5 nj1 ft. 7 in. ; Pain 7/10; 18:12 Body Mass Index 37.59 (108.86 kg, 170.18 cm) nj1 18:12 Pain Scale: Adult wy1 ED Course: 18:00 Patient arrived in ED. ja2 18:01 Rob Peña PA is PHCP. [facility] 18:01 Preston Alvarado DO is Attending Physician. [facility] 18:01 Billy Vences PA is PHCP. cp 18:16 Triage completed. nj1 18:17 Arm band placed on right wrist. nj1 18:44 Foot Left 3 View XRAY In Process Unspecified. EDMS 18:50 Jayden Wyatt DPM is Referral Physician. [facility] 19:00 No provider procedures requiring assistance completed. pf1 19:00 Patient did not have IV access during this emergency room visit. pf1 19:02 Bed in low position. Call light in reach. Side rails up X 1. Client placed on mb9 continuous cardiac and pulse oximetry monitoring. NIBP monitoring applied. 20:00 Wound care: to nail avulsion located on Left first toenail was dressed with Neosporin, pf1 2x2 with coban, Patient tolerated well. 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 pf1 Exp: 04/03/2023. Lot #: [id number]. } Route: IM; Site: left deltoid; 20:08 Follow up: Response: No adverse reaction; Marked relief of symptoms pf1 20:03 Drug: Ibuprofen PO 800 mg Route: PO; pf1 20:08 Follow up: Response: No adverse reaction; Marked relief of symptoms; Pain is unchanged, pf1 physician notified Medication: 19:02 VIS not applicable for this client. mb9 Outcome: 18:50 Discharge ordered by MD. doss 20:09 Discharged to home ambulatory. pf1 20:09 Condition: improved 20:09 Discharge instructions given to patient, Instructed on discharge instructions, follow up and referral plans. Demonstrated understanding of instructions, follow-up care, medications, Prescriptions given X 1. 20:09 Patient left the ED. pf1 Signatures: Dispatcher [employer] EDMS Rob Peña PA PA jmm Page, Corey, PA PA cp Alexander, Jessica ja2 Breneman, Mary Beth RN RN mb9 Shelley Gutierrez RN RN pf1 Diana Espinoza RN RN nj1
[2022-09-29] MEDS ORDERED: IBUPROFEN 400 MG TAB ONE ×2 (19:10→20:09)
[2022-09-29] MEDS ORDERED: TETANUS & DIPHTHERIA TOX,ADULT 0.5 ML VIAL ONE (19:59)
[2022-09-29 20:15] VITALS: BP 106/64; TEMP 98.6; O2SAT 100
== END 2022-09-29 20:09 | disposition home or self-care (01) ==
LOC: ER 17:52
DX: S91.202A Unspecified open wound of left great toe with damage to nail, initial encounter (principal); Z23 Encounter for immunization
CPT/HCPCS: 90714